=== PATIENT | female | born 1950 | race Caucasian/White ===

== ENCOUNTER → 2021-10-24 13:40 | Outpatient (BNVA) | payer MEDICARE, OTHER, SELFPAY | PROVIDERS: PCP Pediatrics; Visit Provider Psychiatry & Neurology Neurology | DX: G24.3 Spasmodic torticollis (principal); G43.709 Chronic migraine without aura, not intractable, without status migrainosus | CPT/HCPCS: 64615; 64616; 99212; J0585 ==

== ENCOUNTER → 2022-02-06 13:33 | Outpatient (BNVA) | payer MEDICARE, OTHER, SELFPAY | PROVIDERS: PCP Pediatrics; Visit Provider Psychiatry & Neurology Neurology | DX: G24.3 Spasmodic torticollis (principal); G43.709 Chronic migraine without aura, not intractable, without status migrainosus | CPT/HCPCS: 64615; 64616; 99211; J0585 ==

== ENCOUNTER → 2022-05-15 15:21 | Outpatient (BNVA) | payer MEDICARE, OTHER, SELFPAY | PROVIDERS: PCP Pediatrics; Visit Provider Psychiatry & Neurology Neurology | DX: G24.3 Spasmodic torticollis (principal); G43.709 Chronic migraine without aura, not intractable, without status migrainosus | CPT/HCPCS: 64616; 99211; J0585 ==

== ENCOUNTER → 2022-08-14 13:34 | Outpatient (BNVA) | payer MEDICARE, OTHER, SELFPAY | PROVIDERS: PCP Pediatrics; Visit Provider Psychiatry & Neurology Neurology | DX: G43.709 Chronic migraine without aura, not intractable, without status migrainosus (principal); G24.3 Spasmodic torticollis | CPT/HCPCS: 64616; 99211; J0585 ==

== ENCOUNTER → 2022-11-13 12:30 | Outpatient (BNVA) | payer MEDICARE, OTHER, SELFPAY | PROVIDERS: PCP Pediatrics; Visit Provider Psychiatry & Neurology Neurology | DX: G24.3 Spasmodic torticollis (principal); G43.709 Chronic migraine without aura, not intractable, without status migrainosus | CPT/HCPCS: 64616; 99211; J0585 ==

== ENCOUNTER 2023-02-19 12:27 | Outpatient (AMB) | payer MEDICARE, OTHER, SELFPAY ==
--- NOTE | 2023-02-19 12:32 | A.OFFVIS_ITS ---
Intake Vital Signs 02/19/23 12:33 Height 5 ft 7 in BP 102/60 Blood Pressure Location Rt brachial Position Sitting Pulse 46 L Pulse Source Pulse Oximeter Pulse Oximetry (%) 96 Oxygen Delivery Method Room Air Intake Visit Reasons: Botox B&B Intake Note: pt is here for botox Litigation Assistant Required: No Accompanied by: Spouse Allergies adhesive Allergy (Verified 02/19/23 12:33) Rash bee venom protein (honey bee) Allergy (Verified 02/19/23 12:33) Swelling contrast dye Allergy (Mild, Uncoded 08/14/22 13:41) Unknown HPI HPI Comments History of Present Illness Details 73-year-old female comes for treatment of her migraines an spasmodic torticollis. Side affects including injection site reaction neck pain headaches muscular weakness musculoskeletal stiffness bronchitis allergic reaction myalgia facial paresis hypertension muscle spasms Excedrin were discussed in detail with the patient patient agrees to the procedure. Botulinum toxin type 100 units lot number [id number] C4 expiration 11/2024 x 1 was diluted with 2 cc of normal saline 200 units lot no [id number] exp 09/30 was diluted with 4 cc, Muscles injected Bilateral splenius 50 units Bilateral levator 50 units each. cervical paraspinal 10 units each Occipitalis 15 units each Temporalis 20 units each. Total used 290 units discarded 10 units PFSH Medical History Arthritis Back pain Scoliosis Surgical History History of back surgery Social History Household Members: Spouse Alcohol intake: current Alcohol intake frequency: does not drink Patient Tobacco Use Status: Never used Tobacco Current occupational status: retired Physical Exam Vital Signs: Last Vital Signs Pulse 46 L 02/19/23 12:33 BP 102/60 02/19/23 12:33 Pulse Ox 96 02/19/23 12:33 Oxygen Delivery Method Room Air 02/19/23 12:33 Const Orientation/consciousness: patient oriented x3 Neck Other: spasmodic torticollis Restricted range of motion Neuro General: patient oriented x3, gait normal, tone normal, moves all extremities and no focal motor deficits Office Procedures Botulinum toxin Injection 26265 - Dystonia Procedure code (CPT) selection complete Office Meds onabotulinumtoxinA Performing Provider: Amy Hernandes MD Administered by: Amy Hernandes MD on 02/19/23 13:06 Dose Route Admin Location Lot Number Expiration Date NDC Office Analyst 90 unit IM [id number] 11/03/24 8729-6857-16 ALLERGAN/BOTOX onabotulinumtoxinA Performing Provider: Amy Hernandes MD Administered by: Amy Hernandes MD on 02/19/23 13:06 Dose Route Admin Location Lot Number Expiration Date [place] Office Analyst 200 unit IM [id number] 09/05/25 1663-7005-34 ALLERGAN/BOTOX Comments: see hpi Assessment & Plan Assessment & Plan (1) Spasmodic torticollis: Code(s): G24.3 - Spasmodic torticollis (2) Chronic migraine without aura: Code(s): G43.709 - Chronic migraine without aura, not intractable, without status migrainosus Plan Patient tolerated the procedure well. She will call with any side effects. Orders: Orders AMB Botulinum toxin Injection Today G24.3 - Spasmodic torticollis, G43.709 - Chronic migraine without aura, not intractable, without status migrainosus Coding Level of Care Code Est Pt Level 1 (82984) Diagnoses Spasmodic torticollis G24.3 Chronic migraine without aura G43.709 CPT Codes Botox Injection - Botox 4: 55538 - Dystonia ([id number])
[2023-02-19 12:33] VITALS: BP 102/60; PULSE 46; O2SAT 96
== END 2023-02-19 13:00 | disposition home or self-care (01) ==
PROVIDERS: Visit Provider Psychiatry & Neurology Neurology
DX: G24.3 Spasmodic torticollis (principal)
CPT/HCPCS: 64616

== ENCOUNTER → 2023-02-19 12:27 | Outpatient (BNVA) | payer MEDICARE, OTHER, SELFPAY | PROVIDERS: Visit Provider Psychiatry & Neurology Neurology | DX: G24.3 Spasmodic torticollis (principal); G43.709 Chronic migraine without aura, not intractable, without status migrainosus | CPT/HCPCS: 64616; J0585 ==

== ENCOUNTER 2023-05-27 13:32 | Outpatient (AMB) | payer MEDICARE, OTHER, SELFPAY ==
--- NOTE | 2023-05-27 13:40 | A.OFFVIS_ITS ---
Intake Vital Signs 05/27/23 13:41 Height 5 ft 7 in BP 100/64 Blood Pressure Location Rt brachial Position Sitting Respiration 16 Pulse 82 Pulse Source Pulse Oximeter Pulse Oximetry (%) 96 Oxygen Delivery Method Room Air Intake Visit Reasons: Botox B&B-lvm Intake Note: Pt presents to office for Botox injections. Allergies latex Allergy (Mild, Verified 05/27/23 13:45) Hives adhesive Allergy (Verified 05/27/23 13:45) Rash bee venom protein (honey bee) Allergy (Verified 05/27/23 13:45) Swelling contrast dye Allergy (Mild, Uncoded 05/27/23 13:45) Unknown Medication List - Last Reconciled 05/27/23 by Amy Hernandes MD fluoxetine 20 mg PO DAILY fluticasone propionate 50 mcg/actuation sprays intranasal gabapentin 600 mg PO BEDTIME gabapentin 100 mg PO DAILY galantamine 8 mg PO BID lifitegrast 5% (Xiidra) drps ophthalmic (eye) montelukast 10 mg PO DAILY multivitamin 1 tab PO DAILY omeprazole 20 mg PO DAILY onabotulinumtoxinA (Botox) IM trazodone 150 mg PO BEDTIME HPI HPI Comments History of Present Illness Details 73-year-old female comes for treatment o f her migraines and spasmodic torticollis. Side affects including injection site reaction neck pain headaches muscular weakness musculoskeletal stiffness bronchitis allergic reaction myalgia facial paresis hypertension muscle spasms Excedrin were discussed in detail with the patient patient agrees to the procedure. Botulinum toxin type 100 units lot number [id number] C4 expiration 09/2025 x 3 was diluted with 2 cc of normal saline. Muscles injected Bilateral splenius 50 units Bilateral levator 50 units each. cervical paraspinal 10 units each Occipitalis 15 units each Temporalis 20 units each. Total used 290 units discarded 10 units PFSH Medical History Back pain Scoliosis Arthritis Surgical History History of back surgery Social History Household Members: Spouse Alcohol intake: current Alcohol intake frequency: does not drink Patient Tobacco Use Status: Never used Tobacco Current occupational status: retired Physical Exam Vital Signs: Last Vital Signs Pulse 82 10/23/23 13:41 Resp 16 05/27/23 13:41 BP 100/64 05/27/23 13:41 Pulse Ox 96 05/27/23 13:41 Oxygen Delivery Method Room Air 05/27/23 13:41 Const Orientation/consciousness: patient oriented x3 Neck Other: spasmodic torticollis Restricted range of motion Neuro General: patient oriented x3, gait normal, tone normal, moves all extremities and no focal motor deficits Office Procedures Botulinum toxin Injection 45522 - Migraine 43287 - Dystonia Procedure code (CPT) selection complete Office Meds onabotulinumtoxinA 100 unit solution for injection Performing Provider: Amy Hernandes MD Performing Location: [facility] Administered by: Amy Hernandes MD on 05/28/23 11:11 Dose Route Admin Location Dispensed Lot Number Expiration Date [facility] [place] Folder 300 unit IM 300 units [id number] 09/05/25 0181-9936-31 ALLERGAN/BOTOX Comments: see hpi Assessment & Plan Assessment & Plan (1) Spasmodic torticollis: Code(s): G24.3 - Spasmodic torticollis (2) Chronic migraine without aura: Code(s): G43.709 - Chronic migraine without aura, not intractable, without status migrainosus Plan Patient tolerated the procedure well. She will call with any side effects. Orders: Orders AMB Botulinum toxin Injection 05/27/23 G24.3 - Spasmodic torticollis, G43.709 - Chronic migraine without aura, not intractable, without status migrainosus Medications: New zolmitriptan (Zomig) take 1 tab at onset of headache; if no relief, may repeat 1 tab after at least 2 hrs; max = 2 tabs/24 hrs PO Coding Level of Care Code Est Pt Level 1 (05685) Diagnoses Spasmodic torticollis G24.3 Chronic migraine without aura G43.709 CPT Codes Botox Injection - Botox 3: 66279 - Migraine ([id number]) Botox Injection - Botox 4: 44634 - Dystonia ([id number])
[2023-05-27 13:41] VITALS: BP 100/64; PULSE 82; RESP 16; O2SAT 96
== END 2023-05-27 14:29 | disposition home or self-care (01) ==
PROVIDERS: PCP Pediatrics; Visit Provider Psychiatry & Neurology Neurology
DX: G43.709 Chronic migraine without aura, not intractable, without status migrainosus (principal)
CPT/HCPCS: 64615

== ENCOUNTER → 2023-05-27 13:32 | Outpatient (BNVA) | payer MEDICARE, OTHER, SELFPAY | PROVIDERS: PCP Pediatrics; Visit Provider Psychiatry & Neurology Neurology | DX: G24.3 Spasmodic torticollis (principal); G43.709 Chronic migraine without aura, not intractable, without status migrainosus | CPT/HCPCS: 64615; 99211; J0585 ==

== ENCOUNTER 2023-09-03 13:02 | Outpatient (AMB) | payer MEDICARE, OTHER, SELFPAY ==
--- NOTE | 2023-09-03 13:07 | MHC.OFFVIS ---
Intake Vital Signs 09/03/23 13:09 Height 5 ft 7 in Weight 126 lb 6 oz BMI 19.8 BP 122/74 Blood Pressure Location Rt brachial Position Sitting Respiration 16 Pulse 71 Pulse Source Pulse Oximeter Pulse Oximetry (%) 96 Oxygen Delivery Method Room Air Intake Visit Reasons: Botox B&B - CONF Intake Note: Pt presents to the office for Botox injections. Associate Professor Of Geology Required: No Allergies latex Allergy (Mild, Verified 09/03/23 13:08) Hives adhesive Allergy (Verified 09/03/23 13:08) Rash bee venom protein (honey bee) Allergy (Verified 09/03/23 13:08) Swelling contrast dye Allergy (Mild, Uncoded 09/03/23 13:08) Unknown Medication List - Last Reconciled 09/03/23 by Amy Hernandes MD fluoxetine 20 mg PO DAILY fluticasone propionate 50 mcg/actuation sprays intranasal gabapentin 600 mg PO BEDTIME gabapentin 100 mg PO DAILY galantamine 8 mg PO BID lifitegrast 5% (Xiidra) drps ophthalmic (eye) montelukast 10 mg PO DAILY multivitamin 1 tab PO DAILY omeprazole 20 mg PO DAILY onabotulinumtoxinA (Botox) IM trazodone 150 mg PO BEDTIME zolmitriptan (Zomig) take 1 tab at onset of headache; if no relief, may repeat 1 tab after at least 2 hrs; max = 2 tabs/24 hrs PO HPI HPI Comments History of Present Illness Details 73-year-old female comes for treatment of her migraines and spasmodic torticollis. Side affects including injection site reaction neck pain headaches muscular weakness musculoskeletal stiffness bronchitis allergic reaction myalgia facial paresis hypertension muscle spasms Excedrin were discussed in detail with the patient patient agrees to the procedure. Botulinum toxin type 100 units lot number [id number] C4 expiration 12/2025 x 3 was diluted with 2 cc of normal saline. Muscles injected Bilateral splenius 50 units Bilateral levator 50 units each. cervical paraspinal 10 units each Occipitalis 15 units each Temporalis 20 units each. Total used 290 units discarded 10 units PFSH Medical History Back pain Scoliosis Arthritis Surgical History History of back surgery Social History Household Members: Spouse Alcohol intake: current Alcohol intake frequency: does not drink Patient Tobacco Use Status: Never used Tobacco Current occupational status: retired Physical Exam Vital Signs: Last Vital Signs Pulse 71 09/03/23 13:09 Resp 16 09/03/23 13:09 BP 122/74 09/03/23 13:09 Pulse Ox 96 09/03/23 13:09 Oxygen Delivery Method Room Air 09/03/23 13:09 BMI result Body Mass Index 19.8 Const Orientation/consciousness: patient oriented x3 Neck Other: spasmodic torticollis Restricted range of motion Neuro General: patient oriented x3, gait normal, tone normal, moves all extremities and no focal motor deficits Office Procedures Botulinum toxin Injection 53249 - Dystonia Procedure code (CPT) selection complete Office Meds onabotulinumtoxinA 100 unit solution for injection Performing Provider: Amy Hernandes MD Performing Location: [facility] Administered by: Amy Hernandes MD on 09/03/23 13:45 Dose Route Admin Location Dispensed Lot Number Expiration Date [facility] Envelope Machine Operator 300 unit IM 300 units [id number] 12/03/25 2923-4446-38 ALLERGAN/BOTOX Comments: see hpi Assessment & Plan Assessment & Plan (1) Spasmodic torticollis: Code(s): G24.3 - Spasmodic torticollis (2) Chronic migraine without aura: Code(s): G43.709 - Chronic migraine without aura, not intractable, without status migrainosus Plan Patient tolerated the procedure well. She will call with any side effects. Orders: Orders AMB Botulinum toxin Injection Today G24.3 - Spasmodic torticollis Coding Level of Care Code Est Pt Level 1 (21924) Diagnoses Spasmodic torticollis G24.3 Chronic migraine without aura G43.709 CPT Codes Botox Injection - Botox 4: 71483 - Dystonia ([id number])
[2023-09-03 13:09] VITALS: BP 122/74; PULSE 71; RESP 16; O2SAT 96; BMI 19.8
== END 2023-09-03 13:49 | disposition home or self-care (01) ==
PROVIDERS: PCP Pediatrics; Visit Provider Psychiatry & Neurology Neurology
DX: G24.3 Spasmodic torticollis (principal)
CPT/HCPCS: 64616

== ENCOUNTER → 2023-09-03 13:02 | Outpatient (BNVA) | payer MEDICARE, OTHER, SELFPAY | PROVIDERS: PCP Pediatrics; Visit Provider Psychiatry & Neurology Neurology | DX: G24.3 Spasmodic torticollis (principal); G43.709 Chronic migraine without aura, not intractable, without status migrainosus | CPT/HCPCS: 64616; 99211; J0585 ==

== ENCOUNTER 2023-12-09 13:43 | Outpatient (AMB) | payer MEDICARE, OTHER, SELFPAY ==
--- NOTE | 2023-12-09 13:46 | A.OFFVIS_ITS ---
Vital Signs 12/09/23 13:49 Height 5 ft 7 in Weight 126 lb BMI 19.7 BP 110/58 L Blood Pressure Location Rt brachial Position Sitting Respiration 16 Pulse 75 Pulse Source Pulse Oximeter Pulse Oximetry (%) 95 Oxygen Delivery Method Room Air Intake Visit Reasons: Botox (B&B)-CONF Intake Note: Pt presents to office for Botox injections. 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 Allergies latex Allergy (Mild, Verified 12/09/23 13:48) Hives adhesive Allergy (Verified 12/09/23 13:48) Rash bee venom protein (honey bee) Allergy (Verified 12/09/23 13:48) Swelling contrast dye Allergy (Mild, Uncoded 12/09/23 13:48) Unknown Medication List - Last Reconciled 12/09/23 by Amy Hernandes MD fluoxetine 20 mg PO DAILY fluticasone propionate 50 mcg/actuation sprays intranasal gabapentin 100 mg PO DAILY gabapentin 300 mg PO BEDTIME galantamine 8 mg PO BID lifitegrast 5% (Xiidra) drps ophthalmic (eye) montelukast 10 mg PO DAILY multivitamin 1 tab PO DAILY omeprazole 20 mg PO DAILY onabotulinumtoxinA (Botox) IM trazodone 150 mg PO BEDTIME zolmitriptan (Zomig) take 1 tab at onset of headache; if no relief, may repeat 1 tab after at least 2 hrs; max = 2 tabs/24 hrs PO HPI Comments Details: 73-year-old female comes for treatment of her migraines and spasmodic torticollis. Side affects including injection site reaction neck pain headaches muscular weakness musculoskeletal stiffness bronchitis allergic reaction myalgia facial paresis hypertension muscle spasms Excedrin were discussed in detail with the patient patient agrees to the procedure. Botulinum toxin type 100 units lot number [id number] C4 expiration 01/2026 x 3 was diluted with 2 cc of normal saline. Muscles injected Bilateral splenius 50 units Bilateral levator 50 units each. Occipitalis 15 units each Temporalis 20 units each. Total used 270 units discarded 30 units PFSH Medical History Back pain Scoliosis Arthritis Surgical History History of back surgery Social History Household Members: Spouse Alcohol intake: current Alcohol intake frequency: does not drink Patient Tobacco Use Status: Never used Tobacco Current occupational status: retired Physical Exam Vital Signs: Last Vital Signs Pulse 75 12/09/23 13:49 Resp 16 12/09/23 13:49 BP 110/58 L 12/09/23 13:49 Pulse Ox 95 12/09/23 13:49 Oxygen Delivery Method Room Air 12/09/23 13:49 BMI result Body Mass Index 19.7 Const Orientation/consciousness: patient oriented x3 Neck Other: spasmodic torticollis Restricted range of motion Neuro General: patient oriented x3, gait normal, tone normal, moves all extremities and no focal motor deficits Office Procedures Botulinum toxin Injection 15130 - Dystonia Procedure code (CPT) selection complete Office Meds onabotulinumtoxinA 100 unit solution for injection Performing Provider: Amy Hernandes MD Performing Location: [facility] [place], [place] [facility] Administered by: Amy Hernandes MD on 12/09/23 14:48 Dose Route Admin Location Dispensed Lot Number Expiration Date [facility] [place][NOTE 3] [place] 270 unit IM 300 units [id number] 01/03/26 2337-7653-30 ALLERGAN/BOTOX Comments: see hpi Assessment & Plan Assessment & Plan (1) 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 She will call with any side effects. Orders: Orders AMB Botulinum toxin Injection Today G24.3 - Spasmodic torticollis Medications: New onabotulinumtoxinA 100 units IM ONCE 1 ea 0RF spasmodic torticollis G24.3 - Spasmodic torticollis Coding Level of Care Code Est Pt Level 1 (52513) Diagnoses Spasmodic torticollis G24.3 Chronic migraine without aura G43.709 CPT Codes Botox Injection - Botox 4: 63520 - Dystonia ([id number])
[2023-12-09 13:49] VITALS: BP 110/58; PULSE 75; RESP 16; O2SAT 95; BMI 19.7
== END 2023-12-09 14:14 | disposition home or self-care (01) ==
PROVIDERS: PCP Pediatrics; Visit Provider Psychiatry & Neurology Neurology
DX: G24.3 Spasmodic torticollis (principal)
CPT/HCPCS: 64616

== ENCOUNTER → 2023-12-09 13:43 | Outpatient (BNVA) | payer MEDICARE, OTHER, SELFPAY | PROVIDERS: PCP Pediatrics; Visit Provider Psychiatry & Neurology Neurology | DX: G24.3 Spasmodic torticollis (principal) | CPT/HCPCS: 64616; 99211; J0585 ==

== ENCOUNTER 2024-03-27 12:28 | Outpatient (AMB) | payer MEDICARE, OTHER, SELFPAY ==
--- NOTE | 2024-03-27 12:31 | A.OFFVIS_ITS ---
Vital Signs 03/27/24 12:33 Height 5 ft 7 in Weight 125 lb BMI 19.6 BP 116/68 Blood Pressure Location Rt brachial Position Sitting Respiration 16 Pulse 60 Pulse Source Pulse Oximeter Pulse Oximetry (%) 98 Oxygen Delivery Method Room Air Intake Visit Reasons: BOTOX - Confirmed Intake Note: Pt presents to the office for Botox injections for migraines. 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 Allergies latex Allergy (Mild, Verified 03/27/24 12:32) Hives adhesive Allergy (Verified 03/27/24 12:32) Rash bee venom protein (honey bee) Allergy (Verified 03/27/24 12:32) Swelling contrast dye Allergy (Mild, Uncoded 03/27/24 12:32) Unknown Medication List - Last Reconciled 03/27/24 by Amy Hernandes MD fluoxetine 20 mg PO DAILY fluticasone propionate 50 mcg/actuation sprays intranasal gabapentin 100 mg PO DAILY gabapentin 300 mg PO BEDTIME galantamine 8 mg PO BID lifitegrast 5% (Xiidra) drps ophthalmic (eye) montelukast 10 mg PO DAILY multivitamin 1 tab PO DAILY omeprazole 20 mg PO DAILY onabotulinumtoxinA (Botox) IM trazodone 150 mg PO BEDTIME zolmitriptan (Zomig) take 1 tab at onset of headache; if no relief, may repeat 1 tab after at least 2 hrs; max = 2 tabs/24 hrs PO HPI Comments Details: 74-year-old female comes for treatment of her migraines and spasmodic torticollis. Side affects including injection site reaction neck pain headaches muscular weakness musculoskeletal stiffness bronchitis allergic reaction myalgia facial paresis hypertension muscle spasms Excedrin were discussed in detail with the patient patient agrees to the procedure. Botulinum toxin type 100 units lot number [id number] C4 expiration 04/2026 x 3 was diluted with 2 cc of normal saline. Muscles injected Bilateral splenius 50 units Bilateral levator 50 units each. Occipitalis 15 units each Temporalis 20 units each. Total used 270 units discarded 30 units PFSH Medical History Back pain Scoliosis Arthritis Surgical History History of back surgery Social History Household Members: Spouse Alcohol intake: current Alcohol intake frequency: does not drink Patient Tobacco Use Status: Never used Tobacco Current occupational status: retired Physical Exam Vital Signs: Last Vital Signs Pulse 60 03/27/24 12:33 Resp 16 03/27/24 12:33 BP 116/68 03/27/24 12:33 Pulse Ox 98 03/27/24 12:33 Oxygen Delivery Method Room Air 03/27/24 12:33 BMI result Body Mass Index 19.6 Const Orientation/consciousness: patient oriented x3 Neck Other: spasmodic torticollis Restricted range of motion Neuro General: patient oriented x3, gait normal, tone normal, moves all extremities and no focal motor deficits Office Procedures Botulinum toxin Injection 63975 - Dystonia Procedure code (CPT) selection complete Office Meds onabotulinumtoxinA 100 unit solution for injection Performing Provider: Amy Hernandes MD Performing Location: [facility] [place] [facility] Administered by: Amy Hernandes MD on 03/27/24 13:12 Dose Route Admin Location Dispensed Lot Number Expiration Date [facility] [place] [employer] Supervisor 270 unit IM 300 units [id number] 04/05/26 6559-5130-76 ALLERGAN/BOTOX Comments: see HPI Assessment & Plan Assessment & Plan (1) 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 She will call with any side effects. Orders: Orders AMB Botulinum toxin Injection Today G24.3 - Spasmodic torticollis Medications: New onabotulinumtoxinA 100 units IM ONCE 3 ea 0RF spasmodic torticollis G24.3 - Spasmodic torticollis Coding Level of Care Code Est Pt Level 1 (05316) Diagnoses Spasmodic torticollis G24.3 Chronic migraine without aura G43.709 CPT Codes Botox Injection - Botox 4: 18125 - Dystonia ([id number])
[2024-03-27 12:33] VITALS: BP 116/68; PULSE 60; RESP 16; O2SAT 98; BMI 19.6
== END 2024-03-27 13:05 | disposition home or self-care (01) ==
PROVIDERS: PCP Pediatrics; Visit Provider Psychiatry & Neurology Neurology
DX: G24.3 Spasmodic torticollis (principal)
CPT/HCPCS: 64616

== ENCOUNTER → 2024-03-27 12:28 | Outpatient (BNVA) | payer MEDICARE, OTHER, SELFPAY | PROVIDERS: PCP Pediatrics; Visit Provider Psychiatry & Neurology Neurology | DX: G24.3 Spasmodic torticollis (principal); G43.709 Chronic migraine without aura, not intractable, without status migrainosus | CPT/HCPCS: 64616; 99211; J0585 ==

== ENCOUNTER 2024-07-01 12:59 | Outpatient (AMB) | payer MEDICARE, OTHER, SELFPAY ==
--- NOTE | 2024-07-01 13:02 | MHC.OFFVIS ---
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 Side affects including injection site reaction neck pain headaches muscular weakness musculoskeletal stiffness bronchitis allergic reaction myalgia facial paresis hypertension muscle spasms Excedrin were discussed in detail with the patient patient agrees to the procedure. Botulinum toxin type 100 units lot number [id number] 07/2026 x 3 was diluted with 2 cc of normal saline. Muscles injected Bilateral splenius 50 units Bilateral levator 50 units each. Occipitalis 15 units each Temporalis 20 units each. Total used 270 units discarded 30 units PFSH Medical History Occipital neuralgia of left side Back pain Scoliosis Arthritis Surgical History History of back surgery Social History Household Members: Spouse Alcohol intake: current Alcohol intake frequency: does not drink Patient Tobacco Use Status: Never used Tobacco Current occupational status: retired Physical Exam Vital Signs: Last Vital Signs Pulse 68 07/01/24 13:03 BP 120/64 07/01/24 13:03 Pulse Ox 98 07/01/24 13:03 Oxygen Delivery Method Room Air 07/01/24 13:03 BMI result Body Mass Index 19.6 Const Orientation/consciousness: patient oriented x3 Neck Other: spasmodic torticollis Restricted range of motion Neuro General: patient oriented x3, gait normal, tone normal, moves all extremities and no focal motor deficits Office Procedures Botulinum toxin Injection 97719 - Dystonia Procedure code (CPT) selection complete Office Meds onabotulinumtoxinA 100 unit solution for injection Performing Provider: Amy Hernandes MD Performing Location: [facility] [place] [facility] Administered by: Amy Hernandes MD on 07/01/24 13:53 Dose Route Admin Location Dispensed Lot Number Expiration Date [employer] 270 unit IM 300 units 0380-4992-00 ALLERGAN/BOTOX Comments: see hpi Assessment & Plan Assessment & Plan (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 She will call with any side effects. Orders: Orders AMB Botulinum toxin Injection Today G24.3 - Spasmodic torticollis Referrals Pain Management Referral M54.81 - Occipital neuralgia Medications: New onabotulinumtoxinA 100 units IM ONCE 3 ea 0RF spasmodic torticollis G24.3 - Spasmodic torticollis Coding Level of Care Code Est Pt Level 1 (62804) Diagnoses Spasmodic torticollis G24.3 Chronic migraine without aura without status migrainosus, not intractable G43.709 Status migrainosus presence: without status migrainosus Intractability: not intractable CPT Codes Botox Injection - Botox 4: 24825 - Dystonia ([id number])
[2024-07-01 13:03] VITALS: BP 120/64; PULSE 68; O2SAT 98; BMI 19.6
== END 2024-07-01 13:52 | disposition home or self-care (01) ==
PROVIDERS: PCP Pediatrics; Visit Provider Psychiatry & Neurology Neurology
DX: G43.709 Chronic migraine without aura, not intractable, without status migrainosus (principal)
CPT/HCPCS: 64615

== ENCOUNTER → 2024-07-01 12:59 | Outpatient (BNVA) | payer MEDICARE, OTHER, SELFPAY | PROVIDERS: PCP Pediatrics; Visit Provider Psychiatry & Neurology Neurology | DX: G24.3 Spasmodic torticollis (principal); G43.709 Chronic migraine without aura, not intractable, without status migrainosus | CPT/HCPCS: 64615; 99211; J0585 ==

== ENCOUNTER 2024-07-30 14:35 | Outpatient (AMB) | payer MEDICARE, OTHER, SELFPAY ==
--- OUTSIDE RECORDS SUMMARY | 2024-07-30 14:38 | XMS_ITS | Patient Health Record ---
[facility] Address [address] [place] [address] Care Team Providers Care Rn Float Name Role Phone Xavier Segura MD Primary Care Provider Unavail able Black, Mini Unavailable [phone] Allergies Allergen (clinical drug ingredient) Drug/Non Drug Allergy documented on EMR Reaction Allergy Type Onset Date Status fluconazole Diflucan Unknown Drug Allergy Activ e Iodine Unknown Drug Allergy Active Adhesive rash Allergy Active Iodine itchyness Drug Allergy Active Reason For Referral No Information Medications Medication SIG (Take, Route, Frequency, Duration) Notes Start Date End Date Status Montelukast Sodium A ctive Zomig 5 MG 1 tablet as needed one time Orally Once a day for 1 day(s) Active Omeprazole 20 MG 1 tablet Orally Once a day for 30 day(s) Active Carisoprodol 350 MG 1 tablet as needed Orally Four times a day Active Claritin 10 MG 1 tablet Orally Once a day for 30 day(s) Not-Taking Custom Orthotics as directed 12/19/2020 Active Elmiron 100 MG 1 capsule on an empty stomach Orally Three times a day for 30 day(s) Not-Taking CeleBREX 200 MG 1 capsule with food Orally Once a day for 30 day(s) Active Nefazodone HCl 100 MG 2 tablets Orally Twice a day for 30 day(s) Not-Taking FLUoxetine HCl 20 MG 1 capsule Orally Once a day for 30 day(s) Active Eye Drops Active Melatonin 3 MG 1 tablet at bedtime as needed with food Orally Once a day for 30 day(s) Active Gabapentin 600 MG 1 tablet Orally Once a day for 30 day(s) 100am 600pm Active Immunizations Vaccine Route Administration Date Status [facility] COVID-19 Pfizer BioNTech Vaccine Unknown 07/05/2021 Administered First Dose: 10/14/2020 Second Dose: 11/04/2020 Social History Tobacco Use: Social History Observation Description Date Details (start date - stop date) Never Smoker NA - NA Tobacco Use/Smoking Question Answer Notes Are you a: nonsmoker Additional Findings: Tobacco Non-User Aggressive non-smoker Alcohol Screen Question Answer Notes Did you have a drink containing alcohol in the p ast year? No Points 0 Interpretation Negative Tobacco use other than smoking: Question Answer Notes Are you an other tobacco user? No Problems Problem Type SNOMED Code ICD Code Onset Dates Problem Status W/U Status Risk Notes Problem Localized, primary osteoarthritis of the ankle and/or foot (684298045) Primary osteoarthritis, right ankle and foot (M19.071) Active confirmed Problem Localized, primary osteoarthritis of the ankle and/or foot (001367313) Primary osteoarthritis, left ankle and foot (M19.072) Active confirmed Problem Acquired hammer toe of right foot (8707885183628717 ) Other hammer toe(s) (acquired), right foot (M20.41) Active confirmed Problem Acquired hammer toe of left foot (4347656191004159 ) Other hammer toe(s) (acquired), left foot (M20.42) Active confirmed Problem Acquired deformity of right foot (4500572252862612 0) 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) Active confirmed Problem Acquired deformity of left foot (2532202457881867 4) PlantarFlexion of metatarsal of left foot (M21.6X2) Active confirmed Plan Of Treatment Pending Test Test Name Order Date - Ganglion Cyst Injection/Aspiratio n 04/30/2019 Insurance Providers Payer Name Payer Address Payer Phone Subscriber Number Group Number Insured Name Patient Relationship to Insured Coverage Start Date Coverage End Date Medicare [employer] [address] [place] [address] [phone] [id number] Marianne Monteiro Self - patient is the insured [facility] ([facility] [address] [place] [address] [phone] [id number] Dzierzan owski, Marianne Self - patient is the insured Medical (General) History Medical History History ICD Code Arthritis Back,Hip,and Knee pain Broken bones Fibromyalgia Headaches/Migraines Reflux ( GERD) Sciatica Chicken pox Transfusions Surgical History Surgery Date(Month/Year) Eyes x4 [phone] Tonsils 1974 Disectomy 1999 Ulna reconstruction- rejected screws 198 Hysterectomy 1986 Lynx sling 2005 back surgery 02/2021
--- OUTSIDE RECORDS SUMMARY | 2024-07-30 14:38 | XMS_ITS ---
[facility] Address [address] [place] [address] Care Team Providers Care Photographs Curator Name Role Phone Xavier Segura MD Primary Care Provider Unavail able Black, Mini Unavailable [phone] Allergies Allergen (clinical drug ingredient) Drug/Non Drug Allergy documented on EMR Reaction Allergy Type Onset Date Status fluconazole Diflucan Unknown Drug Allergy Activ e Iodine Unknown Drug Allergy Active Adhesive rash Allergy Active Iodine itchyness Drug Allergy Active REASON FOR VISIT PCP - 04/2023, Foot pain Medications Medication SIG (Take, Route, Frequency, Duration) Notes Start Date End Date Status Elmiron 100 MG 1 capsule on an empty stomach Orally Three times a day for 30 day(s) Not-Taking FLUoxetine HCl 20 MG 1 capsule Orally Once a day for 30 day(s) Active Eye Drops Active Melatonin 3 MG 1 tablet at bedtime as needed with food Orally Once a day for 30 day(s) Active Gabapentin 600 MG 1 tablet Orally Once a day for 30 day(s) 100am 600pm Active Carisoprodol 350 MG 1 tablet as needed Orally Four times a day Active Claritin 10 MG 1 tablet Orally Once a day for 30 day(s) Not-Taking Custom Orthotics as directed 12/19/2020 Active CeleBREX 200 MG 1 capsule with food Orally Once a day for 30 day(s) Active Nefazodone HCl 100 MG 2 tablets Orally Twice a day for 30 day(s) Not-Taking Montelukast Sodium A ctive Zomig 5 MG 1 tablet as needed one time Orally Once a day for 1 day(s) Active Omeprazole 20 MG 1 tablet Orally Once a day for 30 day(s) Active Social History Tobacco Use: Social History Observation [...] Are you an other tobacco user? No Vital Signs Height 5ft 7in in 06/13/2023 Weight 120 lbs 06/13/2023 BMI 18.79 kg/m2 06/13/2023 Blood pressure systolic 110 mm Hg 06/13/20 23 Blood pressure diastolic 70 mm Hg 023 Encounters Encounter Location Date Provider Diagnosis [facility] [address] [place] [address] 06/13/2023 Mini Black Plantar fascial fibromatosis M72.2 ; Other myositis, left ankle and foot M60.872 ; Other myositis, right ankle and foot M60.871 ; Other hammer toe(s) (acquired), left foot M20.42 ; Other hammer toe(s) (acquired), right foot M20.41 ; Metatarsalgia, left foot M77.42 ; Metatarsalgia, right foot M77.41 ; PlantarFlexion of metatarsal of left foot M21.6X2 ; PlantarFlexion of metatarsal of right foot M21.6X1 ; Primary osteoarthritis, left ankle and foot M19.072 ; Primary osteoarthritis, right ankle and foot M19.071 ; Ganglion, left ankle and foot M67.472 and Hallux limitus of left foot M20.5X2 Assessments Encounter Date Diagnosis (ICD Code) Assessment Notes Treatment Notes Treatment Clinical Notes Section Notes 06/13/2023 Plantar fascial fibromatosis (ICD-10 - M72.2) 06/13/2023 Other myositis, left ankle and foot (ICD-10 - M60.872) 06/13/2023 Other myositis, right ankle and foot (ICD-10 - M60.871) 06/13/2023 Other hammer toe(s) (acquired), left foot (ICD-10 - M20.42) 06/13/2023 Other hammer toe(s) (acquired), right foot (ICD-10 - M20.41) 06/13/2023 Metatarsalgia, left foot (ICD-10 - M77.42) 06/13/2023 Metatarsalgia, right foot (ICD-10 - M77.41) 06/13/2023 PlantarFlexion of metatarsal of left foot (ICD-10 - M21.6X2) 06/13/2023 PlantarFlexion of metatarsal of right foot (ICD-10 - M21.6X1) 06/13/2023 Primary osteoarthritis, left ankle and foot (ICD-10 - M19.072) 06/13/2023 Primary osteoarthritis, right ankle and foot (ICD-10 - M19.071) 06/13/2023 Ganglion, left ankle and foot (ICD-10 - M67.472) 06/13/2023 Hallux limitus of left foot (ICD-10 - M20.5X2) Plan Of Treatment Next Appt Details Follow Up: prn, Reason: Progress Notes * Marianne GRANTDOB:02/1950 (73 yo F)Acc No.[id number]:06/13/2023 Progress Note Patient:?Lisseth Grant Provider:?Mini Mejia DPM :1950???Age:73 Y???Sex:Female D ate:06/13/2023 Address:[address] Pcp:Xavier Segura MD Subjective: * Chief Complaints: * ???PCP - 04/2023Foot pain * HPI: ???Foot Pain:?Nature:?aching, tenderness.?Location:?Forefoot, B/L Bottom B/L.?Duration:?several years.?Onset:?gradual, denies trauma.?Course:?recurrent.?Aggrevated:?standing, walking, especially barefoot.?Treatments:?innersoles, stretching.?Severity/Quality:?moderate.?Misc:?Padding on Previous orthotics have worn away.? * ROS:?General/Constitutional:?Nausea?denies, denies.?Vomiting?denies, denies.?Hunger Thirst?denies, denies.?Loss appetite?denies, denies.?Chills?denies, denies.?Fatigue?denies, denies.?Fever?denies, denies.?Night Sweats denies, denies.?Unexplained weight loss?denies, denies.?Unexplained weight gain?denies, denies.?HEENTM:?Dentures?denies, denies.?Dizziness?denies, denies.?Glasses/contacts?admits, admits.?Retinopathy?denies, denies.?Blurred/double vision?denies, denies.?TMJ?denies, denies.?Discharge/drainage?denies, denies.?Implants?denies, denies.?Sore throat?denies, denies.?Dental implants?denies, denies.?Hard of hearing ?denies, denies.?Difficulty chewing/swallowing/speaking?denies, denies.?Nose bleeds?denies, denies.?Sore mouth?denies, denies.?Respiratory:?On Oxygen?denies, denies.?Pneumonia/pleurisy?denies, denies.?Bronchitis?denies, denies.?Emphysema?denies, denies.?Coughing?denies, denies.?Cough blood?denies, denies.?Shortness of breath?denies, denies.?Wheezing?denies, denies.?Cardiovascular:?Pacemaker?denies, denies.?MVP?denies, denies.?WPW?denies, denies.?CHF?denies, denies.?Heart attack?denies, denies.?Septal defect?denies, denies.?Rapid beat?denies, denies.?Chest pain ?denies, denies.?Atrial Fib.?denies, denies.?Murmur/Palpitations?denies, denies.?Gastrointestinal:?Hemorrhoids?denies, denies.?Stomach/Abdominal pain?denies, denies.?Dark blood stool?denies, denies.?Irritable bowel ?denies, denies.?Constipation?denies, denies.?Diarrhea?denies, denies.?Hematology:?Swelling?denies, denies.?Clots?denies, denies.?Varicose Veins?denies, denies.?Bruising?denies, denies.?Bleeding problem?denies, denies.?Genitourinary:?Blood urine?denies, denies.?Frequent/Painfu/urination/bladder control?denies, denies.?Kidney stones?denies, denies.?Infection (UTI)?denies, denies.?Nephropathy?denies, denies.?sex trans dis (STD)?denies, denies.?Prostate?denies, denies.?Musculoskeletal:?Hammertoes?denies, denies.?Bunions?denies, denies.?Back Pain?denies, denies.?Muscle Cramps/ Resting?denies, denies.?Muscle cramps / walking?denies, denies.?Generalized aches and pains?denies, denies.?Weakness?denies, denies.?Integ.:?[place]?denies, denies.?Scars?denies, denies.?Corns/calluses?denies, denies.?Ingrown nails?denies, denies.?Painful nails?denies, denies.?Open Sores?denies, denies.?Rashes?denies, denies.?Neurologic:?Difficulty sleeping?denies, denies.?Brain disorder?denies, denies.?Numbness?denies, denies.?Balance trouble?denies, denies.?Confusion?denies, denies.?Fainting/blackouts?denies, denies.?Tingling?denies, denies.?Tremors?denies, denies.? * Medical History:? * Surgical History:?Eyes x4 19 54-1995Tonsils 1974Disectomy 2000Ulna reconstruction- rejected screws 1988-1999Hysterectomy 1986Lynx sling 2005back surgery 02/2021 * Hospitalization/Major Diagno stic Procedure:?Denies Past Hospitalization * Family History:?Mother: dece ased, Cancer, kidney/liver disease, diagnosed with Family history of arthritis, Diabetic - NIDDM, Unspecified essential hypertension.?Father: .? * Social History:?Tobacco Use:?Tobacco Use/Smoking?Are you a:?nonsmoker ?Additional Findings: Tobacco Non-User?Aggressive non-smoker ?Tobacco use other than smoking?Are you an other tobacco user??No ???Drugs/Alcohol:?Drugs?Have you used drugs other than those for medical reasons in the past 12 months??No ?Alcohol Screen?Did you have a drink containing alcohol in the past year??No ?Points?0 ?Interpretation?Negative ???Miscellaneous:?Caffeine: yes, frequency:, 3-5 cups per day. ?Children: yes, 1. ?Exercise: yes, walking, Yoga Stretches 2x a day. ?Marital status: . 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 * Medications:?TakingCarisopro dol 350 MG Tablet 1 tablet as needed Orally Four times a dayCeleBREX 200 MG Capsule 1 capsule with food Orally Once a dayEye Drops FLUoxetine HCl 20 MG Capsule 1 capsule Orally Once a dayGabapentin 600 MG Tablet 1 tablet Orally Once a day, Notes: 100am 600pmMelatonin 3 MG Tablet 1 tablet at bedtime as needed with food Orally Once a dayMontelukast Sodium Omeprazole 20 MG Tablet Delayed Release 1 tablet Orally Once a dayZomig 5 MG Tablet 1 tablet as needed one time Orally Once a dayCustom Orthotics as directed Taking Carisoprodol 350 MG Tablet 1 tablet as needed Orally Four times a dayTaking CeleBREX 200 MG Capsule 1 capsule with food Orally Once a dayTaking Eye Drops Taking FLUoxetine HCl 20 MG Capsule 1 capsule Orally Once a dayTaking Gabapentin 600 MG Tablet 1 tablet Orally Once a day, Notes: 100am 600pmTaking Melatonin 3 MG Tablet 1 tablet at bedtime as needed with food Orally Once a dayTaking Montelukast Sodium Taking Omeprazole 20 MG Tablet Delayed Release 1 tablet Orally Once a dayTaking Zomig 5 MG Tablet 1 tablet as needed one time Orally Once a dayTaking Custom Orthotics as directed Not-Taking/PRNElmiron 100 MG Capsule 1 capsule on an empty stomach Orally Three times a dayClaritin 10 MG Tablet 1 tablet Orally Once a dayNefazodone HCl 100 MG Tablet 2 tablets Orally Twice a dayMedication List reviewed and reconciled with the patientNot-Taking/PRN Elmiron 100 MG Capsule 1 capsule on an empty stomach Orally Three times a dayNot-Taking/PRN Claritin 10 MG Tablet 1 tablet Orally Once a dayNot-Taking/PRN Nefazodone HCl 100 MG Tablet 2 tablets Orally Twice a dayMedication List reviewed and reconciled with the patient * Allergies:?IodineAdhesive: r ashDiflucanIodine: itchynessyes[Allergies Verified] Objective: * Vitals:?Ht: 5ft 7in, Wt:120, BMI:18.79, Shoe size: 10.5N, BP:110/70 mm Hg, Ht- cm: 170.18 cm, Wt-k.43 kg. * Examination: ???General Examination: ?GENERAL APPEARANCE:?good attention to hygiene, no acute distress, well developed, well nourished.?Vascular: ?DP PULSES:?09/08, B/L.?PT PULSES:?2/4, B/L.?Neurological: ?SENSORY:?Neurological exam reveals intact sensorium, pain sensation normal, vibration sensation intact, pinprick sensation is normal in the lower extremities, Pt denies, anesthesia, burning, paresthesia, tingling, B/L.?Orthopedic: ?MUSCLE STRENGTH:?5/5 all groups in a symmetrical fashion , B/L.?GAIT ABNORMALITY:?Supinated, adducted.?FOOT MORPHOLOGY:?normal, B/L.?BUNION:? Dorso-Medially prominent 1st MPJ, Limited 1st MPJ Dorsal ROM, Pain assoc with 1st MPJ ROM , Crepitus with ROM present left.?TAILOR'S BUNION:?Prominent 5th MTH/MPJ, B/L.?DIGITAL DEFORMITIES:?Digital contracture, PIPJ, 2-5 B/L, incompl-reducable to push-up test, no over, nor underlapping, Adducto-varus deformity noted, T3, T4, T8, T9.?FOOTWEAR:?worn, OT were inspected and noted to be in good ?condition however padding added thin and displaced.?Dermatologic: ?SKIN FINDINGS:?Skin exam reveals normal texture, elasticity, and tugor. There are no masses. The interspaces are clear, Skin shows sign(s) of cyst dorsal 3rd digit left.?Heel Pain: ?INSPECTION REVEALS:?mild Pain on Palpation to Plantar Fascia med. and central bands, intrinsic musc., infracalcaneal bursa, and med calc tubercle, B/L, No pain: posterior/superior heel, achilles bursa/tendon, sinus tarsi, peroneals, or with lateral heel compression; no limited STJ ROM, calor, or eccymosis.? Assessment: * Assessment: 1.?Plantar fascial fibromato sis - M72.2?2.?Other myositis, left ankle and foot - M60.872?3.?Other myositis, right ankle and foot - M60.871?4.?Other hammer toe(s) (acquired), left foot - M20.42?5.?Other hammer toe(s) (acquired), right foot - M20.41?6.?Metatarsalgia, left foot - M77.42?7.?Metatarsalgia, right foot - M77.41?8.?PlantarFlexion of metatarsal of left foot - M21.6X2?9.?PlantarFlexion of metatarsal of right foot - M21.6X1?10.?Primary osteoarthritis, left ankle and foot - M19.072?11.?Primary osteoarthritis, right ankle and foot - M19.071?12.?Ganglion, left ankle and foot - M67.472?13.?Hallux limitus of left foot - M20.5X2 (Primary)? Plan: * Treatment: * Procedure Codes:? * Preventive Medicine:? ??Counseling:?Discussion:?-13: Office or other outpatient visit for the evaluation and management of an established patient, which required a medically appropriate history and/or examination and LOW level of DECISION MAKING for: 1 STABLE ACUTE UNCOMPLICATED PROBLEM, 2 OR MORE MINOR PROBLEMS, OR 1 STABLE CHRONIC PROBLEM, THAT POSE(S) A LOW RISK FOR MORBIDITY/MORTALITY. The visit on the day of the encounter encompassed interpreting the data and educating the patient as to the nature of their condition, treatment options available according to their individual PMH, meds, allergies, and overall health/living conditions, as well as any potential risks or complications that may occur from a failure to adhere to, and participate in, the recommended course of therapy. The discussion included a complete verbal, and/or written explanation of the examination results, any x-rays taken, the proposed diagnosis, and outline of the treatment plan. A schedule for future care needs was also explained. The patient verbalized an understanding of the instructions at this time and agreed to be an active participant in their treatment. If the patient should think of any questions or concerns after the visit, I have encouraged the patient to call the office.?Padding:?Added padding to patients inner soles to off load the area in pain, The patient and I reviewed the types of shoes they should be wearing. My recommendation included obtaining a well-fitted shoe with a good supportive, non-foldable nor twistable sole, plenty of toe/room for the forefoot, and proper arch support. Based on today's examination, I recommended the patient look for new shoes, by having their feet professionally measured. We discussed that generally the best time of the day for a shoe fitting is the afternoon. Different shoes types and brands to best match the patient's occupation and vocation were discussed. Specific brand selection will be up to the patient, their individual foot condition/deformities, and fit. The patient and I reviewed the standard new shoe break in period by wearing them for a few hours a day while checking for redness or sores as wear time is increased. The patient verbally confirmed to understanding the information discussed.? * Follow Up:?prn * Images: * Sign off status: Completed true * Provider:?Mini Mejia DPM Date:?2022 Generated for Angie oswald/Jessy/Erinsmjose on:?07/30/2024 02:37 PM EST History and Physical Notes * HPI (History of Present Illness) Category Sub-Category Detail Notes Category Not es Foot Pain Nature: aching, tenderness Location: Forefoot, B/L Bottom B/L Duration: several years Onset: gradual, denies katherine martinez Course: recurrent Aggravated: standing, walking, e specially barefoot Treatments: innersoles, stretchi margret Severity/Quality: moderate Misc: Padding on Previous orthotics have worn away Examination Category Sub-Category Detail Notes Category Not es Heel Pain INSPECTION REVEALS: mild Pain on Palpation to Plantar Fascia med. and central bands, intrinsic musc., infracalcaneal bursa, and med calc tubercle, B/L, No pain: posterior/superior heel, achilles bursa/tendon, sinus tarsi, peroneals, or with lateral heel compression; no limited STJ ROM, calor, or eccymosis Neurological SENSORY: Neurological exa m reveals intact sensorium, pain sensation normal, vibration sensation intact, pinprick sensation is normal in the lower extremities, Pt denies, anesthesia, burning, paresthesia, tingling, B/L Dermatologic SKIN FINDINGS: Skin exam reveal s normal texture, elasticity, and tugor. There are no masses. The interspaces are clear, Skin shows sign(s) of cyst dorsal 3rd digit left Orthopedic GAIT ABNORMALITY: Supinated, adducted FOOT MORPHOLOGY: normal, B/L BUNION: Dorso-Medially promi nent 1st MPJ, Limited 1st MPJ Dorsal ROM, Pain assoc with 1st MPJ ROM , Crepitus with ROM present left FOOTWEAR: worn, OT were inspec sameer and noted to be in good condition however padding added thin and displaced DIGITAL DEFORMITIES: Digital contracture , PIPJ, 2-5 B/L, incompl-reducable to push-up test, no over, nor underlapping, Adducto-varus deformity noted , T3, T4, T8, T9 TAILOR'S BUNION: Prominent 5th MTH/MP J, B/L MUSCLE STRENGTH: 5/5 all groups in a symmetrical fashion , B/L General Examination GENERAL APPEARANCE: good att ention to hygiene, no acute distress, well developed, well nourished Vascular DP PULSES (B): 2/4, B/L PT PULSES (B): 2/4, B/L
[2024-07-30 14:47] VITALS: BP 119/56; PULSE 87; O2SAT 94
--- NOTE | 2024-07-30 14:47 | MHC.OFFVIS ---
Vital Signs 07/30/24 14:47 Height 5 ft 7 in Weight 128 lb BMI 20.0 BP 119/56 L Blood Pressure Location Lt brachial Position Sitting Pulse 87 Pulse Source Pulse Oximeter Pulse Oximetry (%) 94 Oxygen Delivery Method Room Air Intake Visit Reasons: Occipital neuralgia/carolin from 07/21 Allergies latex Allergy (Mild, Verified 07/30/24 14:48) Hives adhesive Allergy (Verified 07/30/24 14:48) Rash bee venom protein (honey bee) Allergy (Verified 07/30/24 14:48) Swelling contrast dye Allergy (Mild, Uncoded 07/30/24 14:48) Unknown Medication List - Last Reconciled 07/30/24 by Peace Joshua, STAFF DEVELOPMENT MANAGER fluoxetine 20 mg PO DAILY fluticasone propionate 50 mcg/actuation sprays intranasal gabapentin 100 mg PO DAILY gabapentin 300 mg PO BEDTIME galantamine 8 mg PO BID lifitegrast 5% (Xiidra) drps ophthalmic (eye) montelukast 10 mg PO DAILY multivitamin 1 tab PO DAILY omeprazole 20 mg PO DAILY onabotulinumtoxinA (Botox) IM trazodone 150 mg PO BEDTIME zolmitriptan (Zomig) take 1 tab at onset of headache; if no relief, may repeat 1 tab after at least 2 hrs; max = 2 tabs/24 hrs PO HPI Comments Details: Marianne is a very pleasant 74-year-old female who presents the office today, accompanied by her , for evaluation management of her chronic neck pain Patient endorses left neck pain/tightness for greater than 10 years Over last 9 months has noticed left neck pain that goes up side of her neck across the top of her head She has been diagnosed with torticollis and migraines Currently receiving Botox from Neurology with short-term improvement Previously attempted physical therapy with no improvement. She continues with physician guided home exercise program Undergoes routine manipulation by chiropractor with short-term improvement Monthly massages with short-term improvement Proximally 8 years ago she underwent multiple rounds of facet injections and cervical radiofrequency ablation. As this was many years ago they are unable to detail exactly the results of these injections. They can not remember how beneficial they were or if they were beneficial at all. Denies radiation of the pain down either upper extremity Denies weakness, numbness, burning, tingling of either upper extremity Most recent MRI was approximately 4 years ago, states she was then evaluated by Neurosurgery who informed her there was no options for surgical intervention. Currently taking celecoxib 200 mg with no improvement. She has also tried [id number] medications and prescription medications without improvement Pain today is rated as a 9/10, constant worse in the afternoon and at night. Pain is exacerbated by movements and palpation In terms of muscle damage condition is described as pulsing, throbbing, pounding, pinching, crushing, stabbing, tight, piercing, tiring Pain is negatively impacting patient's enjoyment of life, general activity, sleep, normal functioning, ability to care for self, ability to perform activities of daily living Denies implantable devices, pacemaker or defibrillator Denies current use of anticoagulants Denies current use of nicotine, tobacco, alcohol or illicit substances PFSH Medical History (Updated 07/30/24 @ 15:39 by Niyah Lara APRN, [employer]) Occipital neuralgia of left side Back pain Scoliosis Arthritis Surgical History (Updated 07/30/24 @ 16:31 by Niyah Lara APRN, O[facility]) H/O left wrist surgery H/O: hysterectomy History of tonsillectomy H/O eye surgery History of back surgery Social History Household Members: Spouse Alcohol intake: current Alcohol intake frequency: does not drink Patient Tobacco Use Status: Never used Tobacco Current occupational status: retired Review of Systems Const All systems reviewed & are unremarkable except as noted in HPI and below Physical Exam Vital Signs: Last Vital Signs Pulse 87 07/30/24 14:47 BP 119/56 L 07/30/24 14:47 Pulse Ox 94 07/30/24 14:47 Oxygen Delivery Method Room Air 07/30/24 14:47 BMI result Body Mass Index 20.0 General: awake, alert, oriented. Answers questions appropriately. Fully engaged in examination. Skin: warm, dry, intact HEENT: Normocephalic. Hearing intact. Cardiac: External chest normal in appearance. Respiratory: No cough, audible wheezing or stridor. Abdomen: without gross distension. MS: No obvious swelling or deformities. Cervical Spine: Tender to palpation over left upper and middle trapezius with palpable trigger points and tight bands. No tenderness to palpation over occiput. decreased cervical ROM Spurling compression test positive BUE strength 5/5 Neurological: Oriented to person, place, time and situation. Thought process intact. No gait abnormalities appreciated. Psychiatric: Appropriate mood and affect. Good judgment and insight Assessment & Plan Assessment & Plan (1) Cervical spondylolysis: Code(s): M43.02 - Spondylolysis, cervical region Category: Medical (2) Occipital neuralgia of left side: Code(s): M54.81 - Occipital neuralgia Category: Medical (3) Spasmodic torticollis: Code(s): G24.3 - Spasmodic torticollis Category: Medical (4) Chronic migraine without aura: Code(s): G43.709 - Chronic migraine without aura, not intractable, without status migrainosus Category: Medical Qualifiers: Status migrainosus presence: without status migrainosus Intractability: not intractable Qualified Code(s): G43.709 - Chronic migraine without aura, not intractable, without status migrainosus Plan X-ray ordered for evaluation MRI cervical spine without contrast ordered for evaluation Patient has exhausted conservative therapy including PT, physician guided home exercise program, chiropractor, massage, injections, Botox, NSAIDs, [id number] medications, prescription medications all without improvement of her symptoms Will plan for an office trigger point injections with Dr. Nevarez Discussed options for treatment including diagnostic nerve blocks, sprint PNS trial, diagnostic MBB's, RFA, and more permanent neuromodulation/SCS. Will discuss further after review of imaging. All questions and concerns were answered, patient agrees with plan. Follow up after MRI, sooner if needed Orders: Orders XR cervical spine w flex/ext Today M43.02 - Spondylolysis, cervical region MR cervical spine wo con Today M54.2 - Cervicalgia Coding Level of Care Code New Pt Level 4 (21118) Complex EM visit Add On G2211 Diagnoses Cervical spondylolysis M43.02 Occipital neuralgia of left side M54.81 Spasmodic torticollis G24.3 Chronic migraine without aura without status migrainosus, not intractable G43.709 Status migrainosus presence: without status migrainosus Intractability: not intractable
== END 2024-07-30 15:35 | disposition home or self-care (01) ==
PROVIDERS: PCP Pediatrics; Visit Provider Registered Nurse Emergency
DX: M43.02 Spondylolysis, cervical region (principal); M54.81 Occipital neuralgia; G24.3 Spasmodic torticollis; G43.709 Chronic migraine without aura, not intractable, without status migrainosus
CPT/HCPCS: 99204; G2211

== ENCOUNTER → 2024-07-30 14:35 | Outpatient (BNVA) | payer MEDICARE, OTHER, SELFPAY | PROVIDERS: PCP Pediatrics; Visit Provider Registered Nurse Emergency | DX: M43.02 Spondylolysis, cervical region (principal); M54.81 Occipital neuralgia; G24.3 Spasmodic torticollis; G43.709 Chronic migraine without aura, not intractable, without status migrainosus | CPT/HCPCS: 99202 ==

== ENCOUNTER 2024-08-06 14:46 | Outpatient (REF) | payer MEDICARE, OTHER, SELFPAY ==
--- NOTE | ~2024-08-06 | XR_ITS ---
CLINICAL HISTORY: M43.02 - Spondylolysis, cervical region 7 views cervical spine Comparison: None Findings: Normal vertebral body alignment maintained with flexion and extension positioning. No acute fractures or dislocation. Multiple level degenerative disc and facet change. No prevertebral soft tissue swelling. IMPRESSION: No acute findings. This document has been electronically signed by: Carlos Casper MD on 08/07/2024 18:53:55
--- OUTSIDE RECORDS SUMMARY | 2024-08-06 16:22 | XMS_ITS | Patient Health Record ---
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 Name Role Phone Xavier Segura MD Primary Care Provider Unavail able Black, Mini Unavailable [phone] Allergies Allergen (clinical drug ingredient) Drug/Non Drug [...] Immunizations Vaccine Route Administration Date Status Comme [facility] COVID-19 Pfizer BioNTech Vaccine Unknown 07/05/2021 Administered [...] primary osteoarthritis of the ankle and/or foot (495390206) Primary osteoarthritis, right ankle and foot (M19.071) Active confirmed Problem Localized, primary osteoarthritis of the ankle and/or foot (525046866) Primary osteoarthritis, left ankle and foot (M19.072) Active confirmed Problem Acquired hammer toe of right foot (9133563789720633 ) Other hammer toe(s) (acquired), right foot (M20.41) Active confirmed Problem Acquired hammer toe of left foot (8914969688077547 ) Other hammer toe(s) (acquired), left foot (M20.42) Active confirmed Problem Acquired deformity of right foot (3759285792507262 0) 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) Active confirmed Problem Acquired deformity of left foot (5371741432532785 4) PlantarFlexion of metatarsal of left foot (M21.6X2) Active confirmed Plan Of Treatment Pending Test Test Name Order Date - Ganglion Cyst Injection/Aspiratio n 04/30/2019 Insurance Providers Payer Name Payer Address Payer Phone Subscriber Number Group Number Insured Name Patient Relationship to Insured Coverage Start Date Coverage End Date Medicare National Govt Sv[employer] [address] [place] [address] [id number] Marianne Monteiro Self - patient is the insured [facility] [address] [place] [address] [id number] Dzierzan owski, Marianne Self - patient is the insured Medical (General) History Medical History History ICD Code Arthritis Back,Hip,and Knee pain Broken bones Fibromyalgia Headaches/Migraines Reflux ( GERD) Sciatica Chicken pox Transfusions Surgical History Surgery Date(Month/Year) Eyes x4 [phone] Tonsils 1974 Disectomy 1999 Ulna reconstruction- rejected screws 198 Hysterectomy 1986 Lynx sling 2005 back surgery 02/2021
== END 2024-08-06 14:47 | disposition home or self-care (01) ==
LOC: HO.XRAY 14:46
PROVIDERS: Visit Provider Registered Nurse Emergency
DX: M43.02 Spondylolysis, cervical region (principal)
CPT/HCPCS: 72052

== ENCOUNTER → 2024-08-06 14:51 | Outpatient (BNV) | payer MEDICARE, OTHER, SELFPAY | PROVIDERS: Visit Provider Specialist | DX: M43.02 Spondylolysis, cervical region (principal) | CPT/HCPCS: 72052 ==

== ENCOUNTER 2024-08-14 11:56 | Outpatient (AMB) | payer MEDICARE, OTHER, SELFPAY ==
[2024-08-14 12:00] VITALS: BP 120/62; PULSE 76; RESP 16; O2SAT 98
--- NOTE | 2024-08-14 12:00 | MHC.OFFVIS ---
Vital Signs 08/14/24 12:00 Height 5 ft 7 in BP 120/62 Blood Pressure Location Lt brachial Position Sitting Respiration 16 Pulse 76 Pulse Source Pulse Oximeter Pulse Oximetry (%) 98 Oxygen Delivery Method Room Air Intake Visit Reasons: Left trapezius TPI/MRI results Allergies latex Allergy (Mild, Verified 08/14/24 12:01) Hives adhesive Allergy (Verified 08/14/24 12:01) Rash bee venom protein (honey bee) Allergy (Verified 08/14/24 12:01) Swelling contrast dye Allergy (Mild, Uncoded 08/14/24 12:01) Unknown Medication List - Last Reconciled 08/14/24 by Maria E Mcwilliams LPN fluoxetine 20 mg PO DAILY fluticasone propionate 50 mcg/actuation sprays intranasal gabapentin 100 mg PO DAILY gabapentin 300 mg PO BEDTIME galantamine 8 mg PO BID lifitegrast 5% (Xiidra) drps ophthalmic (eye) montelukast 10 mg PO DAILY multivitamin 1 tab PO DAILY omeprazole 20 mg PO DAILY onabotulinumtoxinA (Botox) IM trazodone 150 mg PO BEDTIME zolmitriptan (Zomig) take 1 tab at onset of headache; if no relief, may repeat 1 tab after at least 2 hrs; max = 2 tabs/24 hrs PO HPI HPI Left trapezius TPI/MRI results: Details: 74-year-old female with a history of cervicogenic headaches and migraines. 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 She presents today for trial of trigger point injections. Her only painful area is on the top left aspect of her crown. She denies significant neck and shoulder pain. She recently underwent an MRI that showed multilevel degenerative changes with the effacement of the thecal sac at C3-4, but she denies any significant neck, shoulder or arm discomfort. Her main issue is occipital pain in the left side. She has never had occipital nerve blocks that she knows of. She has not tried occipital nerve stimulation therapy in the past. [facility] Medical History (Updated 07/30/24 @ 15:39 by Niyah Lara APRN, [employer]OW[employer] REPA[employer]ER) Occipital neuralgia of left side Back pain Scoliosis Arthritis Surgical History (Updated 07/30/24 @ 16:31 by Niyah Lara APRN, [employer]OW[employer]INET REPAIRER) H/O left wrist surgery H/O: hysterectomy History of tonsillectomy H/O eye surgery History of back surgery Social History Household Members: Spouse Alcohol intake: current Alcohol intake frequency: does not drink Patient Tobacco Use Status: Never used Tobacco Current occupational status: retired Physical Exam Vital Signs: Last Vital Signs Pulse 76 08/14/24 12:00 Resp 16 08/14/24 12:00 BP 120/62 08/14/24 12:00 Pulse Ox 98 08/14/24 12:00 Oxygen Delivery Method Room Air 08/14/24 12:00 On exam today: Appears afebrile. Alert and oriented. Mood and affect appropriate. Follows and participates in conversation appropriately. Respiratory effort is unlabored. Able to transition from sit to stand unassisted. Ambulates with bilaterally normal heel strike and toe off. Able to stand and walk on toes and heels. Loss of cervical lordosis. Stiff straight neck. Tenderness overlying the left occipital and crown region. Office Procedures Nerve Block Details: Greater and Lesser Occipital Nerve Block, left Physical exam was used to isolate the location of the targeted nerves. These injection sites were prepped with alcohol. Using sterile technique, a 25 gauge 1.5 inch needle was introduced into the overlying nerve. A total of 3 mL ropivacaine 0.5% was injected around the left greater and lesser occipital nerves in a fan-like motion. The patient tolerated the procedure well and no complications were encountered. Following the procedure the patient's vital signs were stable. The patient was discharged home in good condition with post-procedural instructions. Time Out: Immediately prior to the procedure, the following was verbally confirmed that there is a signed consent form and that the correct patient, planned procedure, site and side are consistent with documentation and that necessary equipment and/or blood products are available prior to the start of the case. Complications: none EBL: <5 cc CPT: 51572-Llgezvh Occipital Procedure code (CPT) selection complete Results Reviewed Results Reviewed: PROCEDURE: MR SPINE CERVICAL without CONTRAST INDICATION: Neck pain for many years , torticollis. TECHNIQUE: Unenhanced multiplanar, multisequence MR imaging of the cervical spine. COMPARISON: None Available. FINDINGS: Reversal of normal cervical lordosis. No findings of fracture or significant listhesis. There is loss of intervertebral disc space height and marginal osteophyte formation C3-C4, C4-C5, C5-C and C6-C7. Degenerative changes of the C1-C2 articulation and craniocervical junction of otherwise normal relationship. Cervical facet arthrosis. Mild edematous changes of the LEFT C4-C5 facet arthrosis. Prevertebral soft tissues of normal appearance. Examination through the cranial cervical junction showing it to be widely patent. Examination through the C2-C3 intervertebral level without central stenosis or foraminal narrowing. Examination through the C3-C4 intervertebral level revealing facet arthrosis. Uncovertebral degenerative changes. No significant central stenosis. Moderate RIGHT foraminal narrowing. No significant LEFT foraminal narrowing. Examination through the C4-C5 intervertebral level revealing facet arthrosis and uncovertebral degenerative changes. Small posterior disc osteophyte. No significant central stenosis. No significant RIGHT foraminal narrowing. Moderate to severe LEFT foraminal narrowing. Note again made of edematous changes associated with the LEFT C4-C5 facet. Examination through the C5-C6 intervertebral level revealing mild facet arthrosis. Uncovertebral degenerative changes and posterior disc osteophyte. There is effacement of the ventral CSF mild impress on the ventral cord without cord signal changes. Mild RIGHT foraminal narrowing. No significant LEFT foraminal narrowing. Examination through the C6-C7 intervertebral level revealing facet arthrosis. Uncovertebral degenerative changes. Small posterior disc osteophyte. No significant central stenosis. Moderate to severe LEFT foraminal narrowing. No significant RIGHT foraminal narrowing. Examination through the C7-T1 intervertebral level without central stenosis or foraminal narrowing. IMPRESSION: Reversal of normal cervical lordosis. Spondylotic changes and facet arthrosis. No findings of fracture or significant listhesis. Varying degrees of associated central stenosis and foraminal narrowing as above. Note made of edematous changes associated with the LEFT C4-C5 facet arthrosis. No additional level of concern for an acute process. C3-C4 Moderate RIGHT foraminal narrowing. C4-C5 Moderate to severe LEFT foraminal narrowing. Note again made of edematous changes associated with the LEFT C4-C5 facet. C5-C6 There is effacement of the ventral CSF mild impress on the ventral cord without cord signal changes. Mild RIGHT foraminal narrowing. C6-C7 Moderate to severe LEFT foraminal narrowing. Assessment & Plan Assessment & Plan (1) Occipital neuralgia of left side: Code(s): M54.81 - Occipital neuralgia Category: Medical (2) Cervical spondylolysis: Code(s): M43.02 - Spondylolysis, cervical region Category: Medical Plan Status post left greater and lesser occipital diagnostic nerve blocks with ropivacaine 0.5% today. I did not undertake the trigger point injections in her neck and shoulder region because she does not have significant symptoms in that area. We discussed trial of occipital nerve stimulation for her left occipital neuralgia which could be of either a cervicogenic or peripheral source. I provided her with a brochure and went over the details of the procedure including risks and benefits. She will follow-up in 2 weeks via tele visit to see the response to occipital nerve block and then we will proceed accordingly. Coding Level of Care Code Est Pt Level 3 (79809) Diagnoses Occipital neuralgia of left side M54.81 Cervical spondylolysis M43.02 CPT Codes Nerve Block - CPT: 87486-Zskwsce Occipital ([id number])
== END 2024-08-14 12:29 | disposition home or self-care (01) ==
PROVIDERS: PCP Pediatrics; Visit Provider Internal Medicine
DX: M54.81 Occipital neuralgia (principal); M43.02 Spondylolysis, cervical region
CPT/HCPCS: 64405; 64450; 99213

== ENCOUNTER → 2024-08-14 11:56 | Outpatient (BNVA) | payer MEDICARE, OTHER, SELFPAY | PROVIDERS: PCP Pediatrics; Visit Provider Internal Medicine | DX: M54.81 Occipital neuralgia (principal); M43.02 Spondylolysis, cervical region | CPT/HCPCS: 64405; 64450; 99212 ==

== ENCOUNTER 2024-08-31 11:11 | Outpatient (AMB) | payer MEDICARE, OTHER, SELFPAY ==
--- NOTE | 2024-08-31 11:11 | MHC.OFFVIS ---
Intake Visit Reasons: 2 WEEK FOLLOW UP Allergies latex Allergy (Mild, Verified 08/14/24 12:01) Hives adhesive Allergy (Verified 08/14/24 12:01) Rash bee venom protein (honey bee) Allergy (Verified 08/14/24 12:01) Swelling contrast dye Allergy (Mild, Uncoded 08/14/24 12:01) Unknown HPI HPI 2 WEEK FOLLOW UP: Details: History of Present Illness The patient is a 74-year-old female presenting with a request for the repeat of occipital nerve block injections. Approximately ten days ago, the patient received a occipital nerve block injection that resulted in over 90% relief. The patient is exploring the possibility of repeating this intervention to potentially prolong the duration of pain relief. The effectiveness of the nerve block lasted until the recent week, providing significant relief for about ten days. The patient does not report any adverse effects from the previous injection and expresses interest in continuing with this approach before exploring other interventions. Pain Description - Onset recurred after 10 days of relief from initial injection. - A duration of over 90% relief for approximately two weeks. - Patient experienced significant improvement post-injection. - Interested in repeating the procedure for extended relief. - No adverse effects reported from previous injections. Physical Exam Results Pain Management - Affect: No reported issues with mood or psychological wellbeing due to pain. - Analgesia: Previous occipital nerve block provided over 90% relief for approximately ten days. Goal to extend pain-free period with repeat injection. - Adverse Effects: No adverse effects reported from previous injection. - Activities of Daily Living: Not explicitly discussed. - Aberrant Drug Related Behaviors: Not discussed; no suggestions of misuse. [facility] Medical History (Updated 07/30/24 @ 15:39 by Niyha Lara APRN, OTTONIEL) Occipital neuralgia of left side Back pain Scoliosis Arthritis Surgical History (Updated 07/30/24 @ 16:31 by Niyah Lara APRN, [employer] MATE) H/O left wrist surgery H/O: hysterectomy History of tonsillectomy H/O eye surgery History of back surgery Social History Household Members: Spouse Alcohol intake: current Alcohol intake frequency: does not drink Patient Tobacco Use Status: Never used Tobacco Current occupational status: retired [employer] Telehealth Platform: [facility] Location of provider rendering services: practice address Location of patient: address on file Patient Identification confirmed using: Name, : Yes Telehealth method: video Patient verbally consented to treatment: Yes Patient verbally consented to billing insurance company: Yes Patient informed of any privacy concerns related to visit: Yes Minutes spent on Phone/Video with Pt.: 10 Assessment & Plan Assessment & Plan (1) Occipital neuralgia of left side: Code(s): M54.81 - Occipital neuralgia Category: Medical Plan Plan - Schedule patient for a follow-up appointment for repeat occipital nerve block injection at the left side. - Monitor relief duration from repeat injections before considering further interventions. Patient was informed and verbally consented to the use of an ambient scribe for clinic note documentation during this visit. Discussion Notes I discussed with the patient the effectiveness of the previous occipital nerve block injection, which provided significant relief for approximately ten days. We reviewed the possibility of repeating the procedure to potentially extend the relief period. I explained that these injections are generally harmless and can be repeated. I provided the office front man contact information for scheduling future appointments to continue this line of treatment. Patient Instructions - Contact the office at [phone] to schedule an appointment for a repeat occipital nerve block injection. - Monitor the duration of relief after the next injection and report any changes. - Return to the clinic for evaluation or immediate care if experiencing any unexpected symptoms or complications. Coding Level of Care Code Tele Est Pt Level 3 (49127) Diagnoses Occipital neuralgia of left side M54.81
--- OUTSIDE RECORDS SUMMARY | 2024-08-31 16:07 | XMS_ITS | Patient Health Record ---
[facility] Address [address] [place] [address] Care Team Providers Care Oncology Rn Name Role Phone Xavier Segura MD Primary Care Provider Unavail able Black, Mini Unavailable [phone] Allergies Allergen (clinical drug ingredient) Drug/Non Drug [...] Immunizations Vaccine Route Administration Date Status Comme [facility] COVID-19 Pfizer BioNTech Vaccine Unknown 07/05/2021 [...] primary osteoarthritis of the ankle and/or foot (199535826) Primary osteoarthritis, right ankle and foot (M19.071) Active confirmed Problem Localized, primary osteoarthritis of the ankle and/or foot (651719385) Primary osteoarthritis, left ankle and foot (M19.072) Active confirmed Problem Acquired hammer toe of right foot (3104925429459969 ) Other hammer toe(s) (acquired), right foot (M20.41) Active confirmed Problem Acquired hammer toe of left foot (9115926247146523 ) Other hammer toe(s) (acquired), left foot (M20.42) Active confirmed Problem Acquired deformity of right foot (5421509206315317 0) 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) Active confirmed Problem Acquired deformity of left foot (1183353515979612 4) PlantarFlexion of metatarsal of left foot (M21.6X2) Active confirmed Plan Of Treatment Pending Test Test Name Order Date - Ganglion Cyst Injection/Aspiratio n 04/30/2019 Insurance Providers Payer Name Payer Address Payer Phone Subscriber Number Group Number Insured Name Patient Relationship to Insured Coverage Start Date Coverage End Date Medicare National Govt Svcs Inc [address] [facility] [address] [id number] Marianne Monteiro Self - patient is the insured [facility] [address] [place] [address] [id number] Dzierzan owski, Marianne Self - patient is the insured Medical (General) History Medical History History ICD Code Arthritis Back,Hip,and Knee pain Broken bones Fibromyalgia Headaches/Migraines Reflux ( GERD) Sciatica Chicken pox Transfusions Surgical History Surgery Date(Month/Year) Eyes x4 [phone] Tonsils 1974 Disectomy 1999 Ulna reconstruction- rejected screws 198 Hysterectomy 1986 Lynx sling 2005 back surgery 02/2021
--- OUTSIDE RECORDS SUMMARY | 2024-08-31 16:07 | XMS_ITS | Clinical Summary ---
Author Organization [facility] Address [address] [place] [address] Phone Care Team Providers Care Department Specialist Name Role Phone Physician, Pcp Unknown Primary Care Provider Naye vailable Encounters Date Type Department Care Team Description 06/11/2024 4:35 PM EST - 06/11/2024 11:59 PM EST Hospital Encounter [facility] MRI [address] [place] [id number] Alzheimer's disease ([facility]) Discharge Disposition: Home or Self Care 06/04/2024 7:37 AM EDT - 06/04/2024 11:59 PM EDT Hospital Encounter [facility] MRI [address] [place] [id number] Discharge Disposition: Home or Self Care from Last 3 Months Social History Tobacco Use Types Packs/Day Years Used Date Smoking Tobacco: Never Assessed Sex and Gender Information Value Date Recorded Sex Assigned at Not on file Gender Identity Not on file Sexual Orientation Not on file Job Start Date Occupation Industry Not on file Not on file Not on file Plan of Treatment Health Maintenance Due Date Last Done Comments Colorectal Cancer Screening: Colonoscopy 08/29/2023 Falls Risk Assessment 08/29/2023 Hepatitis C Screening 08/29/2023 Medicare Annual Wellness Visit 08/29/2023 Social Influencers of Health Screening 08/29/2023 RSV Immunization Patients 60+ Years Old (1 - 1-dose 75+ series) 01/10/2024 Depression Screening 10/23/2024 10/24/2023 Cholesterol Screening (Lipid Panel) 07/02/2027 07/02/2022 Osteoporosis Screening (Bone Density Screening) 03/10/2029 03/10/2019 DTaP,Tdap,and Td Vaccines (3 - Td or Tdap) 03/05/2033 03/05/2023, 05/29/2012 Pneumococcal Vaccine: 65+ Years Completed 01/23/2016, 01/17/2015, 05/29/2012 Zoster Vaccines Completed 05/12/2020, 02/10/2020 Breast Cancer Screening Discontinued 06/17/2023 COVID-19 Vaccine Completed 06/10/2024, 03/2023, 06/15/2022, Additional history exists Influenza Vaccine Completed 06/10/2024, , 06/08/2022, Additional history exists HIB Vaccines Aged Out No longer eligi ble based on patient's age to complete this topic HPV Vaccines Aged Out No longer eligi ble based on patient's age to complete this topic Hepatitis A Vaccines Aged Out No long er eligible based on patient's age to complete this topic Hepatitis B Vaccines Aged Out No long er eligible based on patient's age to complete this topic IPV Vaccines Aged Out No longer eligi ble based on patient's age to complete this topic MMR Vaccines Aged Out No longer eligi ble based on patient's age to complete this topic Meningococcal ACWY Vaccine Aged Out N o longer eligible based on patient's age to complete this topic RSV Immunization Patients Under 20 months Aged Out No longer eligible based on patient's age to complete this topic Varicella Vaccines Aged Out No longer eligible based on patient's age to complete this topic Procedures Procedure Name Priority Date/Time Associated Diagnosis Comments MR BRAIN WO CONTRAST Routine 06/11/2024 5:04 PM EST Alzheimer's disease ([facility]) from Last 3 Months Results * MR Brain wo Contrast (06/11/2024 5:04 PM EST) Anatomical Region Laterality Modality Head and Neck Magnetic Resonan ce 06/18/2024 3:25 PM EST Impressions 06/18/2024 3:36 PM EST No acute findings. Temporoparietal predominant volume loss, similar compared to the prior exam. -------- FINAL REPORT -------- Dictated By: DANIEL SCOTT Dictated Date: 06/18/2024 15:25 ET Assigned Physician: DANIEL SCOTT Reviewed and Electronically Signed By: DANIEL SCOTT Signed Date: 06/18/2024 15:36 ET Workstation ID: [id number] Transcribed By: Self Edit Transcribed Date: 06/18/2024 15:25 ET Narrative 06/18/2024 3:36 PM EST PROCEDURE: Brain MRI INDICATION: Alzheimer's disease TECHNIQUE: Multiplanar, multisequence MRI of the brain Without contrast. COMPARISON: ??11/05/2023 FINDINGS: No acute infarct, mass effect, or intracranial hemorrhage. Minimal chronic small vessel ischemic change throughout the supratentorial white matter, similar compared to prior. ??Sella and foramen magnum are normal. Ventricles are unchanged in size and configuration. ??Diffuse cerebral volume loss is unchanged with temporoparietal predominant volume loss. ??No hydrocephalus. Major intracranial arterial flow voids are within normal limits. Sinuses and mastoid air cells are clear. ??Orbits and extracranial soft tissues are normal. ??Calvarium is normal. Procedure Note Daniel Scott MD - 06/18/2024 PROCEDURE: Brain MRI INDICATION: Alzheimer's disease TECHNIQUE: Multiplanar, multisequence MRI of the brain Without contrast. COMPARISON: 11/05/2023 FINDINGS: No acute infarct, mass effect, or intracranial hemorrhage. Minimal chronic small vessel ischemic change throughout the supratentorialwhite matter, similar compared to prior. Sella and foramen magnum arenormal. Ventricles are unchanged in size and configuration. Diffuse cerebralvolume loss is unchanged with temporoparietal predominant volume loss. Nohydrocephalus. Major intracranial arterial flow voids are within normal limits. Sinuses and mastoid air cells are clear. Orbits and extracranial softtissues are normal. Calvarium is normal. IMPRESSION: No acute findings. Temporoparietal predominant volume loss, similar compared to the priorexam. -------- FINAL REPORT -------- Dictated By: DANIEL SCOTT Dictated Date: 06/18/2024 15:25 ET Assigned Physician: DANIEL SCOTT Reviewed and Electronically Signed By: DANIEL SCOTT Signed Date: 06/18/2024 15:36 ET Workstation ID: [id number] Transcribed By: Self Edit Transcribed Date: 06/18/2024 15:25 ET Tomasa Santillan [facility] IMG MRI PROCEDURE S from Last 3 Months Care Teams Department Specialist Relationship Specialty Start Date End Date Physician, Pcp Unknown PCP - General 06/11/24
--- OUTSIDE RECORDS SUMMARY | 2024-08-31 16:07 | XMS_ITS ---
[facility] Address [address] [place] [address] Care Team Providers Care Eight Section Blower Name Role Phone Xavier Segura MD Primary Care Provider Unavail able Black, Mini Unavailable [phone] Allergies Allergen (clinical drug ingredient) Drug/Non Drug [...] 023 Encounters Encounter Location Date Provider Diagnosis [facility] [address] [place] [address] 06/13/2023 Mini Black Plantar fascial fibromatosis M72.2 [...] Notes * Marianne GRANTDOB:02/1950 (73 yo F)Acc No.[id number]:06/13/2023 Progress Note Patient:?Lisseth Grant Provider:?Mini Mejia DPM :1950???Age:73 Y???Sex:Female D ate:06/13/2023 Address:[address] Pcp:Xavier Segura MD Subjective: * Chief Complaints: [...] Provider:?Mini Mejia DPM Date:?2022 Generated for Angie oswald/Jessy/Erinsmitting on:?08/31/2024 04:06 PM EST History and Physical Notes * [...]
--- OUTSIDE RECORDS SUMMARY | 2024-08-31 16:07 | XMS_ITS | Clinical Summary ---
Author Organization [facility] Address [address] [place] [address] Care Team Providers Care Computer Systems Technician Name Role Phone Xavier Segura MD Primary Care Provider [phone] Allergies Active Allergy Reactions Criticality Noted Date Comments Fluconazole Hives,Itching 02/20/2016 Iodinated Contrast Media Hives 05/03/2000 Medications Medication Sig Dispensed Refills Start Date End Date Status carisoprodol (SOMA) 350 MG tablet TAKE 1 TABLET BY MOUTH 4 TIMES A DAY NEEDED 0 11/16/2017 Active celecoxib (CELEBREX) 200 MG capsule TAKE 1 CAPSULE ONCE DAILY 0 11/18/2017 Active esterified estrogens (MENEST) 0.3 MG tablet Take 0.3 mg by mouth. 0 Active Fluocinonide 0.1 % CREA APPLY TO ITCHY AREAS ON BODY TWICE A DAY 1 10/21/2017 Active FLUoxetine (PROZAC) 20 MG capsule Take 20 mg by mouth. 0 11/18/2017 Active fluticasone (FLONASE) 50 MCG/ACT nasal spray USE 2 SPRAYS NASALLY DAILY NEEDED FOR ALLERGIES 0 10/16/2017 Active gabapentin (NEURONTIN) 600 MG tablet Take 600 mg by mouth. 0 11/18/2017 Active montelukast (SINGULAIR) 10 MG tablet Take 10 mg by mouth. 0 11/18/2017 Active nefazodone (SERZONE) 200 MG tablet TAKE 1 AND 1/2 TABLETS DAILY AT BEDTIME 0 11/18/2017 Active ZOLMitriptan (ZOMIG) 5 MG tablet TAKE 1 TABLET (5 MG TOTAL) BY MOUTH NEEDED FOR MIGRAINE. 6 11/18/2017 Active ZOLMitriptan (ZOMIG) 5 MG tablet Take 5 mg by mouth. 0 11/18/2017 Acti ve Active Problems No known active problems Social History Tobacco Use Types Packs/Day Years Used Date Smoking Tobacco: Never Assessed Sex and Gender Information Value Date Recorded Sex Assigned at Not on file Gender Identity Not on file Sexual Orientation Not on file Plan of Treatment Health Maintenance Due Date Last Done Comments Hepatitis C Screening 1950 COVID-19 Vaccine (#1) 1950 Depression Screening 1961 Preventative Health Evaluation 1967 Colon Cancer Screening (Colonoscopy) 1994 Shingrix-Zoster Vaccine (1 of 2) 1999 Fall Risk Assessment 2014 Osteoporosis Screening (DEXA Scan) 2014 DTap / Tdap / Td (2 - Td or Tdap) 05/29/2022 05/29/2012 RSV Adult > 60+ Yrs or (1 - 1-dose 75+ series) 01/10/2024 Influenza Vaccine (#1) 2024 7, 07/09/2016, 07/21/2015, Additional history exists Pneumococcal Vaccine Completed 01/23/2016, 01/17/2015, 05/29/2012 Hepatitis B Vaccines Aged Out No long er eligible based on patient's age to complete this topic RSV Ped < 20 months Aged Out No longe r eligible based on patient's age to complete this topic Care Teams Computer Systems Technician Relationship Specialty Start Date End Date Xavier Segura MD [address] [place] [address] PCP - General Registry Nurse 11/18/17
== END 2024-08-31 11:12 | disposition home or self-care (01) ==
LOC: HO.PMC 11:11
PROVIDERS: PCP Pediatrics; Visit Provider Internal Medicine
DX: M54.81 Occipital neuralgia (principal)
CPT/HCPCS: 99213

== ENCOUNTER 2024-09-09 09:42 | Outpatient (AMB) | payer MEDICARE, OTHER, SELFPAY ==
--- NOTE | 2024-09-09 10:16 | MHC.OFFVIS ---
Vital Signs 09/09/24 10:17 Height 5 ft 7 in BP 113/54 L Blood Pressure Location Lt brachial Position Sitting Respiration 16 Pulse 72 Pulse Source Pulse Oximeter Pulse Oximetry (%) 96 Oxygen Delivery Method Room Air Intake Visit Reasons: Occipital nerve block Window Cutter Required: No Digital Forensics Investigator: Digital Forensics Investigator Present Accompanied by: Johnathan mata Allergies latex Allergy (Mild, Verified 09/09/24 10:19) Hives adhesive Allergy (Verified 09/09/24 10:19) Rash bee venom protein (honey bee) Allergy (Verified 09/09/24 10:19) Swelling contrast dye Allergy (Mild, Uncoded 09/09/24 10:19) Unknown Medication List - Last Reconciled 09/09/24 by Maria E Mcwilliams LPN fluoxetine 20 mg PO DAILY fluticasone propionate 50 mcg/actuation sprays intranasal gabapentin 100 mg PO DAILY gabapentin 300 mg PO BEDTIME galantamine 8 mg PO BID lifitegrast 5% (Xiidra) drps ophthalmic (eye) montelukast 10 mg PO DAILY multivitamin 1 tab PO DAILY omeprazole 20 mg PO DAILY onabotulinumtoxinA (Botox) IM trazodone 150 mg PO BEDTIME zolmitriptan (Zomig) take 1 tab at onset of headache; if no relief, may repeat 1 tab after at least 2 hrs; max = 2 tabs/24 hrs PO HPI HPI Occipital nerve block: Details: History of Present Illness The patient is a 74-year-old female presenting with occipital neuralgia. This condition first necessitated treatment on August 14, when she received an occipital nerve block that provided relief for approximately two and a half weeks. The patient describes the onset of symptoms as a mild pulsation that escalates, with intermittent flashes before settling into constant pain. The pain localizes primarily on the left side of the head. Previous discussions revealed the return of symptoms mirrored the usual progression observed in her condition. The patient returned to the clinic on August 31, although no interventions were performed at that time. She has observed improvement with interventions, although noted decreases in efficacy over time. Pain Description - Onset and Timing: Initially occurs as a mild pulsation. - Quality and Character: Builds from mild pulsation to constant pain with flashes. - Primary Location: Left occipital region. - Radiation: None specifically noted. - Exacerbating Factors: No specific factors identified. - Relieving Factors: Occipital nerve block provides temporary relief. - Affected Activities: The severity can disrupt normal daily functions when untreated. Physical Exam Appears afebrile. Alert and oriented. Mood and affect appropriate. Follows and participates in conversation appropriately. Respiratory effort is unlabored. Able to transition from sit to stand unassisted. Ambulates with bilaterally normal heel strike and toe off. Able to stand and walk on toes and heels. Results - Tests and Diagnostics: Occipital nerve block was performed. Pain Management - Affect: Not explicitly discussed. - Analgesia: Nerve block with stronger formulation of medication than previously used. - Adverse Effects: Not explicitly discussed, effects deemed tolerable with pain management. - Activities of Daily Living: Function improved with treatment, but diminishes as the block effect wears off. - Aberrant Drug Related Behaviors: None identified. [facility] Medical History (Updated 07/30/24 @ 15:39 by Niyah Lara APRN, OVERNIGHT CASHIER) Occipital neuralgia of left side Back pain Scoliosis Arthritis Surgical History (Updated 07/30/24 @ 16:31 by Niyah Lara APRN, OTTONIEL) H/O left wrist surgery H/O: hysterectomy History of tonsillectomy H/O eye surgery History of back surgery Social History Household Members: Spouse Alcohol intake: current Alcohol intake frequency: does not drink Patient Tobacco Use Status: Never used Tobacco Current occupational status: retired Physical Exam Vital Signs: Last Vital Signs Pulse 72 09/09/24 10:17 Resp 16 09/09/24 10:17 BP 113/54 L 09/09/24 10:17 Pulse Ox 96 09/09/24 10:17 Oxygen Delivery Method Room Air 09/09/24 10:17 Office Procedures Nerve Block Details: Greater and Lesser Occipital Nerve Block, left Physical exam was used to isolate the location of the targeted nerves. These injection sites were prepped with alcohol. Using sterile technique, a 25 gauge 1.5 inch needle was introduced into the overlying nerve. A total of 3 mL ropivacaine 0.5% was injected around the left greater and lesser occipital nerves in a fan-like motion. The patient tolerated the procedure well and no complications were encountered. Following the procedure the patient's vital signs were stable. The patient was discharged home in good condition with post-procedural instructions. Time Out: Immediately prior to the procedure, the following was verbally confirmed that there is a signed consent form and that the correct patient, planned procedure, site and side are consistent with documentation and that necessary equipment and/or blood products are available prior to the start of the case. Complications: none EBL: <5 cc CPT: 47269-Iccjnyz Occipital Procedure code (CPT) selection complete Assessment & Plan Assessment & Plan (1) Occipital neuralgia of left side: Code(s): M54.81 - Occipital neuralgia Category: Medical Plan Plan - Continue occipital nerve blocks to address occipital neuralgia. Schedule monthly to provide sustained relief and avoid insurance issues related to more frequent treatment. - Consideration of different formulations of lidocaine to potentially extend duration of pain relief. Patient was informed and verbally consented to the use of an ambient scribe for clinic note documentation during this visit. Discussion Notes I discussed with the patient the management of her occipital neuralgia using regular occipital nerve blocks. We reviewed previous responses and considered using a slightly stronger formulation of lidocaine to assess potential for longer duration of relief. The necessity for spacing treatments monthly was explained due to both medical considerations and insurance clearance, acknowledging the potential for minor symptoms in the interim. The patient consented to this plan and understood the procedural risks and benefits discussed. Patient Instructions - Schedule an occipital nerve block at the beginning of each month. - Monitor for and report any changes in pain patterns. - Contact the clinic if pain becomes severe or unmanageable before the scheduled block. - Maintain communication regarding any side effects experienced following treatment. Coding Level of Care Code Est Pt Level 3 (57122) Diagnoses Occipital neuralgia of left side M54.81 CPT Codes Nerve Block - CPT: 27906-Yskcvwt Occipital ([id number])
--- OUTSIDE RECORDS SUMMARY | 2024-09-09 10:16 | XMS_ITS | Clinical Summary ---
Author Organization [facility] Address [address] [place] [address] Phone Care Team Providers Care Relief Man Name Role Phone Physician, Pcp Unknown Primary Care Provider Naye vailable Encounters Date Type Department Care Team Description 06/11/2024 4:35 PM EST - 06/11/2024 11:59 PM EST Hospital Encounter [facility] MRI [address] [place] [id number] Alzheimer's disease ([facility]) Discharge Disposition: Home or Self Care from [...] Routine 06/11/2024 5:04 PM EST Alzheimer's disease ([facility]) from Last 3 Months Results * MR [...] Signed Date: 06/18/2024 15:36 ET Workstation ID: [id number] Transcribed By: Self Edit Transcribed Date: 06/18/2024 [...] Signed Date: 06/18/2024 15:36 ET Workstation ID: [id number] Transcribed By: Self Edit Transcribed Date: 06/18/2024 15:25 ET Tomasa Santillan [facility] IM MRI PROCEDURE S from Last 3 Months Care Teams Relief Man Relationship Specialty Start Date End Date Physician, Pcp Unknown PCP - General 06/11/24
--- OUTSIDE RECORDS SUMMARY | 2024-09-09 10:16 | XMS_ITS | Clinical Summary ---
Author Organization [facility] Address [address] [place] [address] Care Team Providers Care Linter Drier Operator Name Role Phone Xavier Segura MD Primary Care Provider [phone] Allergies Active Allergy Reactions Criticality Noted Date [...] age to complete this topic Care Teams Linter Drier Operator Relationship Specialty Start Date End Date Xavier Segura MD [address] [place] [address] PCP - General Sterilization Specialist 11/18/17
[2024-09-09 10:17] VITALS: BP 113/54; PULSE 72; RESP 16; O2SAT 96
== END 2024-09-09 10:39 | disposition home or self-care (01) ==
PROVIDERS: PCP Pediatrics; Visit Provider Internal Medicine
DX: M54.81 Occipital neuralgia (principal)
CPT/HCPCS: 64405; 64450

== ENCOUNTER → 2024-09-09 09:42 | Outpatient (BNVA) | payer MEDICARE, OTHER, SELFPAY | PROVIDERS: PCP Pediatrics; Visit Provider Internal Medicine | DX: M54.81 Occipital neuralgia (principal) | CPT/HCPCS: 64405; 64450 ==

== ENCOUNTER 2024-10-06 12:35 | Outpatient (AMB) | payer MEDICARE, OTHER, SELFPAY ==
--- NOTE | 2024-10-06 12:40 | A.OFFVIS_ITS ---
Vital Signs 10/06/24 12:41 Height 5 ft 7 in BP 120/72 Blood Pressure Location Rt brachial Position Sitting Pulse 76 Pulse Source Pulse Oximeter Pulse Oximetry (%) 97 Oxygen Delivery Method Room Air Intake Visit Reasons: BOTOX Intake Note: patient here for botox injection. Practice supplied Allergies latex Allergy (Mild, Verified 10/06/24 12:51) Hives adhesive Allergy (Verified 10/06/24 12:51) Rash bee venom protein (honey bee) Allergy (Verified 10/06/24 12:51) Swelling contrast dye Allergy (Mild, Uncoded 10/06/24 12:51) Unknown HPI Comments Details: 74-year-old female comes for treatment of her migraines and spasmodic torticollis. Side affects including injection site reaction neck pain headaches muscular weakness musculoskeletal stiffness bronchitis allergic reaction myalgia facial paresis hypertension muscle spasms Excedrin were discussed in detail with the patient patient agrees to the procedure. Botulinum toxin type 100 units lot number [id number] 07/2026 x 3 was diluted with 2 cc of normal saline. Muscles injected Bilateral splenius 50 units Bilateral levator 50 units each. Occipitalis 15 units each Temporalis 20 units each. Adebayo semispinalis 15 units each Total used 300 units PFSH Medical History Occipital neuralgia of left side Back pain Scoliosis Arthritis Surgical History H/O left wrist surgery H/O: hysterectomy History of tonsillectomy H/O eye surgery History of back surgery Social History Household Members: Spouse Alcohol intake: current Alcohol intake frequency: does not drink Patient Tobacco Use Status: Never used Tobacco Current occupational status: retired Physical Exam Vital Signs: Last Vital Signs Pulse 76 10/06/24 12:41 BP 120/72 10/06/24 12:41 Pulse Ox 97 10/06/24 12:41 Oxygen Delivery Method Room Air 10/06/24 12:41 Const Orientation/consciousness: patient oriented x3 Neck Other: spasmodic torticollis Restricted range of motion Neuro General: patient oriented x3, gait normal, tone normal, moves all extremities and no focal motor deficits Office Procedures Botulinum toxin Injection 38406 - Dystonia Procedure code (CPT) selection complete Office Meds onabotulinumtoxinA 100 unit solution for injection Performing Provider: Amy Hernandes MD Performing Location: [facility] Administered by: Amy Hernandes MD on 10/06/24 13:20 Dose Route Admin Location Dispensed Lot Number Expiration Date NDC Meter Repairer Helper 300 unit IM 300 units [id number] ALLERGAN/BOTOX Comments: see HPI Assessment & Plan Assessment & Plan (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 She will call with any side effects. Orders: Orders Other Ref Test - [facility] Today G24.3 - Spasmodic torticollis, M43.02 - Spondylolysis, cervical region AMB Botulinum toxin Injection Today G24.3 - Spasmodic torticollis Medications: New onabotulinumtoxinA 100 units IM ONCE 3 ea 0RF torticollis G24.3 - Spasmodic torticollis Coding Level of Care Code Est Pt Level 1 (99208) Diagnoses Spasmodic torticollis G24.3 Chronic migraine without aura without status migrainosus, not intractable G43.709 Status migrainosus presence: without status migrainosus Intractability: not intractable CPT Codes Botox Injection - Botox 4: 91556 - Dystonia ([id number])
[2024-10-06 12:41] VITALS: BP 120/72; PULSE 76; O2SAT 97
--- OUTSIDE RECORDS SUMMARY | 2024-10-06 15:40 | XMS_ITS ---
[facility] Address [address] [place] [address] Care Team Providers Care Industrial Service Technician Name Role Phone Xavier Segura MD Primary Care Provider Unavail able Black, Mini Unavailable [phone] Allergies Allergen (clinical drug ingredient) Drug/Non Drug [...] 023 Encounters Encounter Location Date Provider Diagnosis [facility] [place] [address] [place] [address] 06/13/2023 Mini Black Plantar fascial fibromatosis M72.2 [...] Notes * Marianne GRANTDOB:02/1950 (73 yo F)Acc No.[id number]:06/13/2023 Progress Note Patient:?Lisseth Grant Provider:?Mini Mejia DPM :1950???Age:73 Y???Sex:Female D ate:06/13/2023 Address:[address] Pcp:Xavier Segura MD Subjective: * Chief Complaints: [...] Mejia DPM Date:?2022 Generated for Angie oswald/Jessy/Erinsmitting on:?10/06/2024 03:39 PM EST History and Physical Notes * [...]
--- OUTSIDE RECORDS SUMMARY | 2024-10-06 15:40 | XMS_ITS | Patient Health Record ---
[facility] Address [address] [place] [address] Care Team Providers Care Color Buffer Name Role Phone Xavier Segura MD Primary Care Provider Unavail able Black, Mini Unavailable [phone] Allergies Allergen (clinical drug ingredient) Drug/Non Drug [...] Immunizations Vaccine Route Administration Date Status Comme [facility] COVID-19 Pfizer BioNTech Vaccine Unknown 07/05/2021 [...] primary osteoarthritis of the ankle and/or foot (718560792) Primary osteoarthritis, right ankle and foot (M19.071) Active confirmed Problem Localized, primary osteoarthritis of the ankle and/or foot (030708222) Primary osteoarthritis, left ankle and foot (M19.072) Active confirmed Problem Acquired hammer toe of right foot (4192566657509962 ) Other hammer toe(s) (acquired), right foot (M20.41) Active confirmed Problem Acquired hammer toe of left foot (9828172353502653 ) Other hammer toe(s) (acquired), left foot (M20.42) Active confirmed Problem Acquired deformity of right foot (3216493159123637 0) 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) Active confirmed Problem Acquired deformity of left foot (9139014921078086 4) PlantarFlexion of metatarsal of left foot (M21.6X2) Active confirmed Plan Of Treatment Pending Test Test Name Order Date - Ganglion Cyst Injection/Aspiratio n 04/30/2019 Insurance Providers Payer Name Payer Address Payer Phone Subscriber Number Group Number Insured Name Patient Relationship to Insured Coverage Start Date Coverage End Date Medicare National [employer] [address] [facility] [address] [id number] Marianne Monteiro Self - patient is the insured [facility] [address] [place] [address] [phone] [id number] Dzierzan owski, Marianne Self - patient is the insured Medical (General) History Medical History History ICD Code Arthritis Back,Hip,and Knee pain Broken bones Fibromyalgia Headaches/Migraines Reflux ( GERD) Sciatica Chicken pox Transfusions Surgical History Surgery Date(Month/Year) Eyes x4 [phone] Tonsils 1974 Disectomy 1999 Ulna reconstruction- rejected screws 198 Hysterectomy 1986 Lynx sling 2005 back surgery 02/2021
--- OUTSIDE RECORDS SUMMARY | 2024-10-06 15:40 | XMS_ITS | Clinical Summary ---
Author Organization [facility] Address [address] [place] [address] Phone Care Team Providers Care Director Strategy Name Role Phone Physician, Pcp Unknown Primary Care Provider Naye vailable Social History Tobacco Use Types Packs/Day Years Used Date Smoking Tobacco: Never Assessed Comments Unknown Sex and Gender Information Value Date Recorded Sex Assigned at Not on file Legal Sex Female 8:23 PM EST Gender Identity Not on file Sexual Orientation [...] or Tdap) 03/05/2033 03/05/2023, 05/29/2012 Pneumococcal Vaccine: 50+ Years Completed 01/23/2016, 01/17/2015, 05/29/2012 Zoster Vaccines [...] patient's age to complete this topic Meningococcal B Vacine Aged Out No lo nger eligible based on patient's age to complete this topic RSV Immunization Patients Under 20 months Aged Out No longer eligible based on patient's age to complete this topic Varicella Vaccines Aged Out No longer eligible based on patient's age to complete this topic Insurance MEDICARE Care Teams Director Strategy Relationship Specialty Start Date End Date Physician, Pcp Unknown PCP - General 06/11/24
--- OUTSIDE RECORDS SUMMARY | 2024-10-06 15:40 | XMS_ITS | Clinical Summary ---
Author Organization [facility] Address [address] [place] [address] Care Team Providers Care Pharmacy Clerk Name Role Phone Xavier Segura MD Primary Care Provider Allergies Active Allergy Reactions Criticality Noted Date [...] age to complete this topic Care Teams Pharmacy Clerk Relationship Specialty Start Date End Date Xavier Segura MD [address] [place] [address] PCP - General National Investigative Producer 11/18/17
== END 2024-10-06 13:16 | disposition home or self-care (01) ==
PROVIDERS: PCP Pediatrics; Visit Provider Psychiatry & Neurology Neurology
DX: G24.3 Spasmodic torticollis (principal); G43.709 Chronic migraine without aura, not intractable, without status migrainosus
CPT/HCPCS: 64616

== ENCOUNTER 2024-10-06 12:35 | Outpatient (REF) | payer MEDICARE, OTHER, SELFPAY ==
--- OUTSIDE RECORDS SUMMARY | 2024-10-06 16:43 | XMS_ITS | Clinical Summary ---
Author Organization [facility] Address [address] [place] [address] Phone Care Team Providers Care Automotive Internet Sales Manager Name Role Phone Physician, Pcp Unknown Primary [...] complete this topic Insurance MEDICARE Care Teams Automotive Internet Sales Manager Relationship Specialty Start Date End Date Physician, Pcp Unknown PCP - General 06/11/24
--- OUTSIDE RECORDS SUMMARY | 2024-10-06 16:43 | XMS_ITS | Clinical Summary ---
Author Organization [facility] Address [address] [place] [address] Care Team Providers Care Operations Staff Specialist Security Name Role Phone Xavier Segura MD Primary Care Provider [phone] Allergies Active Allergy Reactions Criticality Noted Date [...] age to complete this topic Care Teams Operations Staff Specialist Security Relationship Specialty Start Date End Date Xavier Segura MD [address] [place] [address] PCP - General Clinical Trial Head 11/18/17
== END 2024-10-06 12:36 | disposition home or self-care (01) ==
LOC: HO.HKASLDS 12:35
PROVIDERS: Visit Provider Psychiatry & Neurology Neurology
DX: G24.3 Spasmodic torticollis (principal); M43.02 Spondylolysis, cervical region; G43.709 Chronic migraine without aura, not intractable, without status migrainosus
CPT/HCPCS: 64616; 64620; 86341; 99211; J0585

== ENCOUNTER 2024-10-09 11:01 | Outpatient (AMB) | payer MEDICARE, OTHER, SELFPAY ==
--- NOTE | 2024-10-09 11:01 | MHC.OFFVIS ---
Vital Signs 10/09/24 11:19 Height 5 ft 7 in BMI Reason not done Patient refused/unable BP 116/58 L Blood Pressure Location Lt brachial Position Sitting Respiration 16 Pulse 73 Pulse Source Pulse Oximeter Pulse Oximetry (%) 93 Oxygen Delivery Method Room Air Intake Visit Reasons: occipital NB Hostel Manager Required: No Development Spec: Development Spec Present Accompanied by: Farrah Laird Allergies latex Allergy (Mild, Verified 10/09/24 11:25) Hives adhesive Allergy (Verified 10/09/24 11:25) Rash bee venom protein (honey bee) Allergy (Verified 10/09/24 11:25) Swelling contrast dye Allergy (Mild, Uncoded 10/06/24 12:51) Unknown HPI HPI occipital NB: Details: History of Present Illness The patient is a 74-year-old female presenting with occipital neuralgia. The patient's symptoms have persisted despite undergoing trigger point injections, which previously failed to deliver satisfactory relief. Management of her condition so far has included targeting the occipital nerves through injections, but these efforts have been confounded by potential inaccuracies in targeting the nerve layers. The current visit is intended to repeat the injection on the left side, with a consideration of alternate pain relief strategies if today's treatment is unsuccessful. Pain Description - Onset: Prior to the last visit. - Quality: Not specified, likely nerve-related. - Location: Greater and lesser occipital nerves on the left side. - Exacerbating factors: Ineffective site targeting. - Relieving factors: Effective site targeting. - Areas affected: Left occipital region. - Interference: Potentially daily activities and comfort due to unresolved pain. Pain Management - Affect: Impact on daily routine discussed but not explicitly described in terms of mood or psychological wellbeing. - Analgesia: Current treatment involves occipital nerve blocks with 5 mL of 0.5% bupivacaine administered as a single left-sided injection with no reported adverse effects from the procedure. - Adverse Effects: None reported during the conversation. - Activities of Daily Living: Potential interference due to ineffective pain management; specific impacts were not detailed. - Aberrant Drug Related Behaviors: None mentioned. Greater and Lesser Occipital Nerve Block, left Physical exam was used to isolate the location of the targeted nerves. These injection sites were prepped with alcohol. Using sterile technique, a 25 gauge 1.5 inch needle was introduced into the overlying nerve. A total of 3 mL ropivacaine 0.5% was injected around the left greater and lesser occipital nerves in a fan-like motion. The patient tolerated the procedure well and no complications were encountered. Following the procedure the patient's vital signs were stable. The patient was discharged home in good condition with post-procedural instructions. Time Out: Immediately prior to the procedure, the following was verbally confirmed that there is a signed consent form and that the correct patient, planned procedure, site and side are consistent with documentation and that necessary equipment and/or blood products are available prior to the start of the case. Complications: none EBL: <5 cc CPT: 16512-[id number] Occipital Procedure code (CPT) selection complete [facility] Medical History Occipital neuralgia of left side Back pain Scoliosis Arthritis Surgical History H/O left wrist surgery H/O: hysterectomy History of tonsillectomy H/O eye surgery History of back surgery Social History Household Members: Spouse Alcohol intake: current Alcohol intake frequency: does not drink Patient Tobacco Use Status: Never used Tobacco Current occupational status: retired Physical Exam Vital Signs: Last Vital Signs Pulse 73 10/09/24 11:19 Resp 16 10/09/24 11:19 BP 116/58 L 10/09/24 11:19 Pulse Ox 93 10/09/24 11:19 Oxygen Delivery Method Room Air 10/09/24 11:19 Assessment & Plan Assessment & Plan (1) Occipital neuralgia of left side: Code(s): M54.81 - Occipital neuralgia Category: Medical Plan Plan Patient is status post repeat left ONB. Patient tolerated procedure well and was discharged home in stable condition with discharge instructions. All questions were answered If today's procedure proves successful, this treatment method will be sustained; otherwise, we will explore other pain management avenues. A follow-up is recommended to monitor her progress and response to this intervention.: Patient was informed and verbally consented to the use of an ambient scribe for clinic note documentation during this visit. Discussion Notes During the visit, I discussed with the patient the possibility of inaccurate nerve targeting in previous month, which may have led to inadequate pain relief. The patient consented to receive another injection on the left side, following an understanding that this could either affirm the treatment's efficacy or prompt reconsideration of management strategies. I explained the benefits of potentially ameliorating occipital neuralgia and the negligible risks associated with today's procedure. Follow-up arrangements were encouraged to monitor the treatment outcome and chart further pain management. Patient Instructions - Follow up with a scheduled appointment to assess the effectiveness of the recent nerve block. - Monitor your pain symptoms and note any changes. - Contact the office if there is no improvement or if you experience adverse effects. - Consider alternative strategies for pain management if this procedure does not work. Coding Level of Care Code Est Pt Level 3 (59562) Diagnoses Occipital neuralgia of left side M54.81
[2024-10-09 11:19] VITALS: BP 116/58; PULSE 73; RESP 16; O2SAT 93
--- OUTSIDE RECORDS SUMMARY | 2024-10-09 12:44 | XMS_ITS ---
[facility] Address [address] [place] [address] Care Team Providers Care Academic Records Specialist Name Role Phone Xavier Segura MD Primary Care Provider Unavail able Black, Mini Unavailable [phone] Allergies Allergen (clinical drug ingredient) Drug/Non Drug [...] 023 Encounters Encounter Location Date Provider Diagnosis [facility] [place] [address] [place] [address] 06/13/2023 Mini Black Plantar fascial fibromatosis M72.2 [...] Notes * Marianne GRANTDOB:02/1950 (73 yo F)Acc No.[id number]:06/13/2023 Progress Note Patient:?Lisseth Grant Provider:?Mini Mejia DPM :1950???Age:73 Y???Sex:Female D ate:06/13/2023 Address:[address] Pcp:Xavier Segura MD Subjective: * Chief Complaints: [...] Mejia DPM Date:?2022 Generated for Angie oswald/Jessy/Erinsmitting on:?10/09/2024 12:44 PM EST History and Physical Notes * HPI (History of Present Illness) Category Sub-Category Detail Notes Category Not es Foot Pain Nature: aching, tenderness Location: Forefoot, B/L Bottom B/L Duration: several years Onset: gradual, denies kathreine martinez Course: recurrent Aggravated: standing, walking, e [...]
--- OUTSIDE RECORDS SUMMARY | 2024-10-09 12:44 | XMS_ITS | Clinical Summary ---
Author Organization [facility] Address [address] [place] [address] Care Team Providers Care Od Grinder Operator Name Role Phone Xavier Segura MD Primary Care Provider [phone] Allergies Active Allergy Reactions Criticality Noted Date [...] age to complete this topic Care Teams Od Grinder Operator Relationship Specialty Start Date End Date Xavier Segura MD [address] [place] [address] PCP - General Seal Extrusion Operator 11/18/17
--- OUTSIDE RECORDS SUMMARY | 2024-10-09 12:44 | XMS_ITS | Clinical Summary ---
Author Organization [facility] Address [address] [place] [address] Phone Care Team Providers Care Well Services Operator Name Role Phone Physician, Pcp Unknown Primary [...] complete this topic Insurance MEDICARE Care Teams Well Services Operator Relationship Specialty Start Date End Date Physician, Pcp Unknown PCP - General 06/11/24
--- OUTSIDE RECORDS SUMMARY | 2024-10-09 12:44 | XMS_ITS | Patient Health Record ---
[facility] Address [address] [place] [address] Care Team Providers Care Funeral Home Director Name Role Phone Xavier Segura MD Primary Care Provider Unavail able Black, Mini Unavailable [phone] Allergies Allergen (clinical drug ingredient) Drug/Non Drug [...] Immunizations Vaccine Route Administration Date Status Comme [facility] COVID-19 Pfizer BioNTech Vaccine Unknown 07/05/2021 [...] primary osteoarthritis of the ankle and/or foot (341979310) Primary osteoarthritis, right ankle and foot (M19.071) Active confirmed Problem Localized, primary osteoarthritis of the ankle and/or foot (352789455) Primary osteoarthritis, left ankle and foot (M19.072) Active confirmed Problem Acquired hammer toe of right foot (4124916683912154 ) Other hammer toe(s) (acquired), right foot (M20.41) Active confirmed Problem Acquired hammer toe of left foot (7158044597765848 ) Other hammer toe(s) (acquired), left foot (M20.42) Active confirmed Problem Acquired deformity of right foot (0124526575725785 0) 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) Active confirmed Problem Acquired deformity of left foot (5727563555934919 4) PlantarFlexion of metatarsal of left foot (M21.6X2) Active confirmed Plan Of Treatment Pending Test Test Name Order Date - Ganglion Cyst Injection/Aspiratio n 04/30/2019 Insurance Providers Payer Name Payer Address Payer Phone Subscriber Number Group Number Insured Name Patient Relationship to Insured Coverage Start Date Coverage End Date Medicare National [employer] [address] [place] [address] [id number] Marianne Monteiro Self - patient is the insured [facility] [address] [place] [address] [phone] [id number] Dzierzan owski, Marianne Self - patient is the insured Medical (General) History Medical History History ICD Code Arthritis Back,Hip,and Knee pain Broken bones Fibromyalgia Headaches/Migraines Reflux ( GERD) Sciatica Chicken pox Transfusions Surgical History Surgery Date(Month/Year) Eyes x4 [phone] Tonsils 1974 Disectomy 1999 Ulna reconstruction- rejected screws 198 Hysterectomy 1986 Lynx sling 2005 back surgery 02/2021
== END 2024-10-09 11:34 | disposition home or self-care (01) ==
PROVIDERS: PCP Pediatrics; Visit Provider Internal Medicine
DX: M54.81 Occipital neuralgia (principal)
CPT/HCPCS: 64405; 64450

== ENCOUNTER → 2024-10-09 11:01 | Outpatient (BNVA) | payer MEDICARE, OTHER, SELFPAY | PROVIDERS: PCP Pediatrics; Visit Provider Internal Medicine | DX: M54.81 Occipital neuralgia (principal) | CPT/HCPCS: 64405; 64450 ==

== ENCOUNTER 2025-01-12 13:18 | Outpatient (AMB) | payer MEDICARE, OTHER, SELFPAY ==
[2025-01-12 13:37] VITALS: BP 122/66
--- NOTE | 2025-01-12 13:37 | A.OFFVIS_ITS ---
Vital Signs 01/12/25 13:37 Height 5 ft 7 in BP 122/66 Blood Pressure Location Rt brachial Position Sitting Intake Visit Reasons: BOTOX Intake Note: Patient presents for botox injection. practice supplied Allergies latex Allergy (Mild, Verified 10/09/24 11:25) Hives adhesive Allergy (Verified 10/09/24 11:25) Rash bee venom protein (honey bee) Allergy (Verified 10/09/24 11:25) Swelling contrast dye Allergy (Mild, Uncoded 10/06/24 12:51) Unknown Medication List - Last Reconciled 01/12/25 by Amy Hernandes MD fluoxetine 20 mg PO DAILY fluticasone propionate 50 mcg/actuation sprays intranasal gabapentin 100 mg PO DAILY gabapentin 300 mg PO BEDTIME galantamine 8 mg PO BID lifitegrast 5% (Xiidra) drps ophthalmic (eye) montelukast 10 mg PO DAILY multivitamin 1 tab PO DAILY omeprazole 20 mg PO DAILY onabotulinumtoxinA (Botox) IM trazodone 150 mg PO BEDTIME zolmitriptan (Zomig) take 1 tab at onset of headache; if no relief, may repeat 1 tab after at least 2 hrs; max = 2 tabs/24 hrs PO HPI Comments Details: 75-year-old female comes for treatment of her migraines and spasmodic torticollis. Side affects including injection site reaction neck pain headaches muscular weakness musculoskeletal stiffness bronchitis allergic reaction myalgia facial paresis hypertension muscle spasms Excedrin were discussed in detail with the patient patient agrees to the procedure. Botulinum toxin type 100 units lot number [id number] expiration 05/2027 x 3 was diluted with 2 cc of normal saline. Muscles injected Bilateral splenius 50 units Bilateral levator 50 units each. Occipitalis 15 units each Temporalis 20 units each. Adebayo semispinalis 15 units each Total used 300 units PFSH Medical History Occipital neuralgia of left side Back pain Scoliosis Arthritis Surgical History H/O left wrist surgery H/O: hysterectomy History of tonsillectomy H/O eye surgery History of back surgery Social History Household Members: Spouse Alcohol intake: current Alcohol intake frequency: does not drink Patient Tobacco Use Status: Never used Tobacco Current occupational status: retired Physical Exam Vital Signs: Last Vital Signs BP 122/66 01/12/25 13:37 Const Orientation/consciousness: patient oriented x3 Neck Other: spasmodic torticollis Restricted range of motion Neuro General: patient oriented x3, gait normal, tone normal, moves all extremities and no focal motor deficits Office Procedures Botulinum toxin Injection 57217 - Migraine Procedure code (CPT) selection complete Office Meds onabotulinumtoxinA 100 unit solution for injection Performing Provider: Amy Hernandes MD Performing Location: [facility] Administered by: Amy Hernandes MD on 01/12/25 14:05 Dose Route Admin Location Dispensed Lot Number Expiration Date [facility] Rag Boiler 300 unit IM 300 units [id number] [employer] 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 She will call with any side effects. Orders: Orders AMB Botulinum toxin Injection Today G24.3 - Spasmodic torticollis Medications: New onabotulinumtoxinA 100 units IM ONCE 3 ea 0RF torticollis G24.3 - Spasmodic torticollis Coding Level of Care Code Est Pt Level 1 (29743) Diagnoses Spasmodic torticollis G24.3 Chronic migraine without aura without status migrainosus, not intractable G43.709 Status migrainosus presence: without status migrainosus Intractability: not intractable CPT Codes Botox Injection - Botox 3: 27921 - Migraine ([id number])
--- OUTSIDE RECORDS SUMMARY | 2025-01-12 15:46 | XMS_ITS | Clinical Summary ---
Author Organization [facility] Address [address] [place] [address] Phone Care Team Providers Care Painter Touch Up Name Role Phone Physician, Pcp Unknown Primary Care Provider Naye vailable Encounters Date Type Department Care Team Description 11/12/2024 11:49 AM EDT - 11/12/2024 11:59 PM EDT Hospital Encounter [facility] MRI [address] [place] [address] Alzheimer's disease, unspecified (CODE) ([facility] V24, [facility] V28) Discharge Disposition: Home or Self Care from [...] Health Maintenance Due Date Last Done Comments Falls Risk Assessment 08/29/2023 Hepatitis C Screening 08/29/2023 Medicare Annual Wellness Visit 08/29/2023 Social Influencers of Health Screening 08/29/2023 RSV Immunization Adult Patients (1 - 1-dose 75+ series) 01/10/2024 COVID-19 Vaccine ( season) 2024 06/10/2024, 06/12/2023, 06/15/2022, Additional history exists Depression Screening 11/06/2025 11/06/2024 Cholesterol Screening (Lipid Panel) 07/02/2027 07/02/2022 Osteoporosis Screening (Bone Density Screening) 03/10/2029 03/10/2019 DTaP,Tdap,and Td Vaccines (3 - Td or Tdap) 03/05/2033 03/05/2023, 05/29/2012 Pneumococcal Vaccine: 50+ Years Completed 01/23/2016, 01/17/2015, 05/29/2012 Zoster Vaccines Completed 05/12/2020, 02/10/2020 Influenza Vaccine Completed 06/10/2024, , 06/08/2022, Additional history exists Breast Cancer Screening Discontinued 08/03/2024, 06/17 HIB Vaccines Aged Out No longer eligi [...] age to complete this topic Meningococcal B Vaccine Aged Out No l onger eligible based on patient's age to complete this topic RSV Immunization Patients Under 20 months Aged Out No longer eligible based on patient's age to complete this topic Varicella Vaccines Aged Out No longer eligible based on patient's age to complete this topic Procedures Procedure Name Priority Date/Time Associated Diagnosis Comments MR BRAIN WO CONTRAST Routine 11/12/2024 1:32 PM EDT Alzheimer's disease, unspecified (CODE) ([facility] V24, [facility] V28) from Last 3 Months Results * MR Brain wo Contrast (11/12/2024 1:32 PM EDT) Anatomical Region Laterality Modality Head and Neck Magnetic Resonan ce 11/12/2024 7:14 PM EDT Impressions 11/12/2024 7:24 PM EDT No acute findings or evidence of amyloid-related imaging abnormalities. Temporoparietal predominant volume loss, similar compared to the prior exam. -------- FINAL REPORT -------- Dictated By: DANIEL SCOTT Dictated Date: 11/12/2024 19:14 ET Assigned Physician: DANIEL SCOTT Reviewed and Electronically Signed By: DANIEL SCOTT Signed Date: 11/12/2024 19:24 ET Workstation ID: [id number] Transcribed By: Self Edit Transcribed Date: 11/12/2024 19:14 ET Narrative 11/12/2024 7:24 PM EDT PROCEDURE: Brain MRI INDICATION: Alzheimer's disease TECHNIQUE: Multiplanar, multisequence MRI of the brain Without contrast. COMPARISON: ??11/05/2023 and 06/11/2024 FINDINGS: No acute infarct, mass effect, or intracranial hemorrhage. Minimal chronic small vessel ischemic change throughout the supratentorial white matter, similar compared to prior. ??Sella and foramen magnum are normal. ?? Right cerebellar developmental venous anomaly noted. ??No abnormal intracranial susceptibility artifact or other amyloid-related imaging abnormalities. Ventricles are unchanged in size and configuration. ??Diffuse cerebral volume loss is unchanged with temporoparietal predominant volume loss. ??No hydrocephalus. Major intracranial arterial flow voids are within normal limits. Sinuses and mastoid air cells are clear. ??Orbits and extracranial soft tissues are normal. ??Calvarium is normal. Procedure Note Daniel Scott MD - 11/12/2024 PROCEDURE: Brain MRI INDICATION: Alzheimer's disease TECHNIQUE: Multiplanar, multisequence MRI of the brain Without contrast. COMPARISON: 11/05/2023 and 06/11/2024 FINDINGS: No acute infarct, mass effect, or intracranial hemorrhage. Minimal chronic small vessel ischemic change throughout the supratentorialwhite matter, similar compared to prior. Sella and foramen magnum arenormal. Right cerebellar developmental venous anomaly noted. No abnormalintracranial susceptibility artifact or other amyloid-related imagingabnormalities. Ventricles are unchanged in size and configuration. Diffuse cerebralvolume loss is unchanged with temporoparietal predominant volume loss. Nohydrocephalus. Major intracranial arterial flow voids are within normal limits. Sinuses and mastoid air cells are clear. Orbits and extracranial softtissues are normal. Calvarium is normal. IMPRESSION: No acute findings or evidence of amyloid-related imaging abnormalities. Temporoparietal predominant volume loss, similar compared to the priorexam. -------- FINAL REPORT -------- Dictated By: DANIEL SCOTT Dictated Date: 11/12/2024 19:14 ET Assigned Physician: DANIEL SCOTT Reviewed and Electronically Signed By: DANIEL SCOTT Signed Date: 11/12/2024 19:24 ET Workstation ID: [id number] Transcribed By: Self Edit Transcribed Date: 11/12/2024 19:14 ET Tomasa Santillan APPRENTICE PLANT ATTENDANT IMG MRI PROCEDURES Final Result from Last 3 Months Insurance MEDICARE [facility] Care Teams Painter Touch Up Relationship Specialty Start Date End Date Physician, Pcp Unknown PCP - General 06/11/24
== END 2025-01-12 13:58 | disposition home or self-care (01) ==
LOC: HO.HSMS 13:19
PROVIDERS: PCP Pediatrics; Visit Provider Psychiatry & Neurology Neurology
DX: G43.709 Chronic migraine without aura, not intractable, without status migrainosus (principal); G24.3 Spasmodic torticollis
CPT/HCPCS: 64615

== ENCOUNTER → 2025-01-12 13:18 | Outpatient (BNVA) | payer MEDICARE, OTHER, SELFPAY | PROVIDERS: PCP Pediatrics; Visit Provider Psychiatry & Neurology Neurology | DX: G24.3 Spasmodic torticollis (principal); G43.709 Chronic migraine without aura, not intractable, without status migrainosus | CPT/HCPCS: 64615; 64616; 99211; J0585 ==

== ENCOUNTER 2025-04-13 14:46 | Outpatient (AMB) | payer MEDICARE, OTHER, SELFPAY ==
--- OUTSIDE RECORDS SUMMARY | 2015-12-20 | XMS_ITS | Encounter Summary ---
Author Organization [facility] Address [address] [place] [address] Drive [address] [place] [address] Phone Care Team Providers Care Caseworker Name Role Phone Xavier Segura MD Primary Care Provider [phone] Reason for Visit * MRI/CAT Scan - Closed Specialty Diagnoses / Procedures Referred By Contac t Referred To Contact Procedures MRI Spine (Bone) Outside (No Interpretation) Az Boucher MD [address] [place] [address] Phone: tel: fax: [email or web address] Referral ID Status Reason Start Date Expiration Date Visits Re quested Visits Authorized [id number] Closed 07/17/2016 07/17/2017 1 1 Encounter Details Date Type Department Care Team (Late st Contact Info) Description 12/20/2015 Hospital Encounter [facility] [address] [place] [address] Az Boucher MD [address] [place] [address] [email or web address] Social History Tobacco Use Types Packs/Day Years Used Date Smoking Tobacco: Never Passive Smoke Exposure: Past Smokeless Tobacco: Never Alcohol Use Standard Drinks/Week Comments Never 0 (1 standard drink = 0.6 oz pur e alcohol) Child or Family Care Answer Date Record ed Do you have problems with on e of the following making it difficult for you to work, study, or receive health care? I choose not to answer 06/23/2021 Education Answer Date Recorded Are you interested in more education? Not on toni e 06/25/2023 Are you concerned about learning? Not on file 06/25/2023 No 06/25/2023 No 06/25/2023 Food Answer Date Recorded Within the past 6 months we worried whether our food would run out before we got money to buy more. Never True 06/23/2021 Within the past 6 months the food we bought just didn't last and we didn't have enough money to get more. Never True Residential Stability Answer Date Recor ded What is your housing situation today? I have rosangela ramos 06/23/2021 How many times have you move d in the past 12 months? Zero (I did not move) 06/23/2021 Paying for Meds Answer Date Recorded Do you have trouble paying for medicines? No 06/23/2021 Paying Utility Bills Answer Date Record ed Do you have trouble paying your heating or elect ricity bill? No 06/23/2021 Transportation Answer Date Recorded Has the lack of transportati on kept you from medical appointments or from getting medications? No 06/23/2021 Unemployment Answer Date Recorded Are you currently unemployed or working on a part-time or temporary basis, and looking for work? No 06/23/2021 Digital Access Answer Date Recorded No 12/29/2022 No 12/29/2022 Reliable internet access at home? Not on file 12/29/2022 Device with a working camera? Not on file Intimate Partner Violence Answer Date R ecorded Are you denied basic needs s uch as food, clothing, or medical care? No 01/25/2025 In the past 12 months have y ou been in a relationship with a person who hurts, threatens, or tries to control you? No 01/25/2025 Are you denied basic needs s uch as food, clothing, or medical care? No 01/25/2025 In the past 12 months have y ou been in a relationship with a person who hurts, threatens, or tries to control you? No 01/25/2025 Comments No Sex and Gender Information Value Date Recorded Sex Assigned at Female 02/05/2020 10:29 AM EDT Legal Sex Female 6:15 PM EST Gender Identity Female 02/05/2020 10:29 AM EDT Sexual Orientation Not on file Occupation Industry Job Start Date Job End Date retired Not on file Not on file Not on file documented as of this encounter Functional Status * Calculated C-SSRS Risk Score (Lifetime/Recent) Answer Date of Assessment Author No Risk Indicated 01/25/2025 3:09 PM EDT Liz Whitaker RN * Dawson Suicide Severity Rating Scale (Screener/Recent Self-Report) Question Answer Date of Assessment Author 1. Wish to be (Past 1 Month) No 025 3:09 PM EDT Liz Whitaker RN 2. Non-Specific Active Suici hieu Thoughts (Past 1 Month) No 01/25/2025 3:09 PM EDT Liz Whitaker RN 6. Suicidal Behavior (Lifetime) No 3:09 PM EDT Liz Whitaker RN documented as of this encounter Plan of Treatment Upcoming Encounters Date Type Department Care Team (Late st Contact Info) Description 05/20/2025 2:30 PM EDT Office Visit [facility] [address] [place] [address] Mik Finley DO [address] [place] [phone] [email or web address] 05/26/2025 3:30 PM EDT Appointment [facility], Donald [address] [place] [address], 2nd [place] [address] Aida Terrell MD, MSc [address] [place] [address] 06/22/2025 10:45 AM EST Office Visit [facility] Pulmonary, Allergy and Critical Care Medicine [address] [facility] [place] [address] Pranav Zelaya MD [address] [place] [address] 2[address] [place] [address] [email or web address] 08/09/2025 10:30 AM EST Telemedicine [facility] [place] of Neurology [address] [place] [address], [address] [place] [address], [address] [place] [address] Aida Terrell MD, MSc [address] [place] [address] [place] [phone] [email or web address] documented as of this encounter Procedures Procedure Name Priority Date/Time Associated Diagnosis Comments MRI SPINE MUSCULOSKELETAL FOCUS OUTSIDE (NO INTERPRETATION) Routine 12/20/2015 12:00 AM EDT documented in this encounter Results * MRI Spine (Bone) Outside (No Interpretation) (12/20/2015 12:00 AM EDT) Narrative [facility] INTERFAC[facility] - 07/17/2016 1:18 PM EST This study is for PACS storage only and not for interpretation. Az Boucher MD IMG OUTSIDE IMAGING W/ OUT INTERPRETATION Final Result [facility] documented in this encounter Visit Diagnoses Not on filedocumented in this encounter Additional Health Concerns Infection Onset Date Last Indicated Resolved Time CDiff-Risk 07/31/2024 07/31/2024 08/01/2024 1:09 PM EST CDiff-Risk 08/01/2024 08/01/2024 08/01/2024 2:41 PM EST documented as of this encounter Care Teams Caseworker Relationship Specialty Start Date End Date Xavier Segura MD [address] [place] [address], [address] [place], [place] [id number] [email or web address] PCP - General Family Medicine 02/09/15 documented as of this encounter Additional Source Comments The information contained in this document represents components of the legal health record. It is not the complete legal health record.[facility]
--- OUTSIDE RECORDS SUMMARY | 2016-03-16 | XMS_ITS | Encounter Summary ---
Author Organization [facility] Address [address] [place] [address] Drive [address] [place] [address] Phone Care Team Providers Care Campaign Advisor Name Role Phone Xavier Segura MD Primary Care Provider [phone] Encounter Details Date Type Department Care Team (Late st Contact Info) Description 03/16/2016 Hospital Encounter [facility] [address] [place] [address] Az Boucher MD [address] [place] [address] [email or web address] Social History Tobacco Use Types Packs/Day Years [...] 3:09 PM EDT Liz Whitaker RN * [place] Suicide Severity Rating Scale (Screener/Recent Self-Report) Question [...] Upcoming Encounters Date Type Department Care Team ([facility] st Contact Info) Description 05/20/2025 2:30 PM EDT Office Visit [facility] [address] [place] [address] Mik Finley DO [address] [place] [address] [email or web address] 05/26/2025 3:30 PM EDT Appointment [facility], Donald [address] [place] [address] Aida Terrell MD, MSc [address] [place] [address] 06/22/2025 10:45 AM EST Office Visit [facility] Pulmonary, Allergy and Critical Care Medicine [address] [place] [address] Pranav Zelaya MD [address] [place] [address] 08/09/2025 10:30 AM EST Telemedicine [facility] Department of Neurology [address] [place] [address], [address] [place] [address], [address] [address] Aida Terrell MD, MSc [address] [place] [phone] [email or web address] documented as of this encounter Procedures Procedure Name Priority Date/Time Associated Diagnosis Comments XR PELVIS OUTSIDE (NO INTERPRETATION) Routine 03/16/2016 12:00 AM EDT documented in this encounter Results * XR Pelvis Outside (No Interpretation) (03/16/2016 12:00 AM EDT) Narrative [facility] IMG INTERFACES - 07/17/2016 1:30 PM EST This study is for PACS storage only and not for interpretation. us Az Boucher MD IMG OUTSIDE IMAGING W/ OUT INTERPRETATION Final Result [facility] IMG INTERFACES documented in this encounter Visit Diagnoses Not on filedocumented in this encounter Additional Health Concerns Infection Onset Date Last Indicated Resolved Time CDiff-Risk 07/31/2024 07/31/2024 08/01/2024 1:09 PM EST CDiff-Risk 08/01/2024 08/01/2024 08/01/2024 2:41 PM EST documented as of this encounter Care Teams Campaign Advisor Relationship Specialty Start Date End Date Xavier Segura MD [address] [place] [address], [address] [place] [address] [email or web address] PCP - General Family Medicine 02/09/15 documented as of this encounter Additional Source Comments The information contained in this document represents components of the legal health record. It is not the complete legal health record.[facility]
--- OUTSIDE RECORDS SUMMARY | 2016-03-16 00:15 | XMS_ITS | Encounter Summary ---
Author Organization [facility] Address [address] [place] [address] Phone Care Team Providers Care Motorcyles Final Inspector Name Role Phone Xavier Segura MD Primary Care Provider [phone] Encounter Details Date Type Department Care Team (Late st Contact Info) Description 03/16/2016 12:15 AM EDT Hospital Encounter [facility] [address] [place] [address] Az Boucher MD [address] [place] [address] [email or web address] Social History Tobacco Use Types [...] 3:09 PM EDT Liz Whitaker RN * [place] Suicide Severity Rating Scale (Screener/Recent Self-Report) Question [...] Description 05/20/2025 2:30 PM EDT Office Visit [facility] [address] [place] [address] Mik Finley DO [address] [place] [address] [email or web address] 05/26/2025 3:30 PM EDT Appointment [facility] Imaging, Donald [address] [place] [address], [address] [place] [address] Aida Terrell MD, MSc [address] [place] [address] 06/22/2025 10:45 AM EST Office Visit [facility] Pulmonary, Allergy and Critical Care Medicine [address] [place] [address] Pranav Zelaya MD [address] [place] [address] 08/09/2025 10:30 AM EST Telemedicine [facility] Department of Neurology [address] [place] [address], [address] [place] [address], [address] [place] [address] Aida Terrell MD, MSc [address] [place] [address] [email or web address] documented as of this encounter Procedures Procedure Name Priority Date/Time Associated Diagnosis Comments XR PELVIS OUTSIDE (NO INTERPRETATION) Routine 03/16/2016 12:15 AM EDT documented in this encounter Results * XR Pelvis Outside (No Interpretation) (03/16/2016 12:15 AM EDT) Narrative [facility] IMG INTERFACES - 07/17/2016 1:30 PM EST This study is for PACS storage only and not for interpretation. us Az Boucher MD IMG OUTSIDE IMAGING W/ OUT INTERPRETATION Final Result [facility] IMG INTERFACES documented in this encounter Visit Diagnoses Not on filedocumented in this encounter Additional Health Concerns Infection Onset Date Last Indicated Resolved Time CDiff-Risk 07/31/2024 07/31/2024 08/01/2024 1:09 PM EST CDiff-Risk 08/01/2024 08/01/2024 08/01/2024 2:41 PM EST documented as of this encounter Care Teams Motorcyles Final Inspector Relationship Specialty Start Date End Date Xavier Segura MD [address] [place] [address], [address] [address] [email or web address] PCP - General Family Medicine 02/09/15 documented as of this encounter Additional Source Comments The information contained in this document represents components of the legal health record. It is not the complete legal health record.[facility]
--- NOTE | 2025-04-13 14:47 | MHC.OFFVIS ---
Vital Signs 04/13/25 14:48 Height 5 ft 7 in BP 122/64 Blood Pressure Location Rt brachial Position Sitting Pulse 75 Pulse Source Pulse Oximeter Pulse Oximetry (%) 95 Oxygen Delivery Method Room Air Intake Visit Reasons: Botox Intake Note: Botox Heating Element Repairer Required: No Accompanied by: Spouse Allergies latex Allergy (Mild, Verified 04/13/25 14:48) Hives adhesive Allergy (Verified 04/13/25 14:48) Rash bee venom protein (honey bee) Allergy (Verified 04/13/25 14:48) Swelling contrast dye Allergy (Mild, Uncoded 10/06/24 12:51) Unknown Medication List - Last Reconciled 04/13/25 by Amy Hernandes MD celecoxib 200 mg PO DAILY PRN fluoxetine 20 mg PO DAILY fluticasone propionate 50 mcg/actuation sprays intranasal gabapentin 100 mg PO DAILY gabapentin 300 mg PO BEDTIME galantamine 8 mg PO BID lifitegrast 5% (Xiidra) drps ophthalmic (eye) minoxidil 1.25 mg PO DAILY montelukast 10 mg PO DAILY multivitamin 1 tab PO DAILY omeprazole 20 mg PO DAILY onabotulinumtoxinA (Botox) IM trazodone 150 mg PO BEDTIME zolmitriptan (Zomig) take 1 tab at onset of headache; if no relief, may repeat 1 tab after at least 2 hrs; max = 2 tabs/24 hrs PO HPI Comments Details: 75-year-old female comes for treatment of her migraines and spasmodic torticollis. Side affects including injection site reaction neck pain headaches muscular weakness musculoskeletal stiffness bronchitis allergic reaction myalgia facial paresis hypertension muscle spasms Excedrin were discussed in detail with the patient patient agrees to the procedure. Botulinum toxin type 100 units lot number [id number] expiration 06/2027 x 3 was diluted with 2 cc of normal saline. Muscles injected Bilateral splenius 50 units Bilateral levator 50 units each. Occipitalis 15 units each Temporalis 20 units each. Adebayo semispinalis 15 units each Total used 300 units PFSH Medical History Occipital neuralgia of left side Back pain Scoliosis Arthritis Surgical History H/O left wrist surgery H/O: hysterectomy History of tonsillectomy H/O eye surgery History of back surgery Social History Household Members: Spouse Alcohol intake: current Alcohol intake frequency: does not drink Patient Tobacco Use Status: Never used Tobacco Current occupational status: retired Physical Exam Vital Signs: Last Vital Signs Pulse 75 04/13/25 14:48 BP 122/64 04/13/25 14:48 Pulse Ox 95 04/13/25 14:48 Oxygen Delivery Method Room Air 04/13/25 14:48 Const Orientation/consciousness: patient oriented x3 Neck Other: spasmodic torticollis Restricted range of motion Neuro General: patient oriented x3, gait normal, tone normal, moves all extremities and no focal motor deficits Office Procedures Botulinum toxin Injection 22307 - Dystonia Procedure code (CPT) selection complete Office Meds onabotulinumtoxinA 100 unit solution for injection Performing Provider: Amy Hernandes MD Performing Location: [facility] Administered by: Amy Hernandes MD on 04/13/25 15:26 Dose Route Admin Location Dispensed Lot Number Expiration Date [facility] School Adjustment Counselor 300 unit IM 300 units [id number] [employer] Total Dispensed Waste 300 units 0 % Comments: see HPI Assessment & Plan Assessment & Plan (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 She will call with any side effects. Orders: Orders AMB Botulinum toxin Injection Today G24.3 - Spasmodic torticollis Coding Level of Care Code Est Pt Level 1 (17256) Diagnoses Spasmodic torticollis G24.3 Chronic migraine without aura without status migrainosus, not intractable G43.709 Status migrainosus presence: without status migrainosus Intractability: not intractable CPT Codes Botox Injection - Botox 4: 79545 - Dystonia ([id number])
[2025-04-13 14:48] VITALS: BP 122/64; PULSE 75; O2SAT 95
--- OUTSIDE RECORDS SUMMARY | 2025-04-13 17:14 | XMS_ITS | Encounter Summary ---
Author Organization [facility] Address [address] [place] [address] Phone Care Team Providers Care Implementation Project Coordinator Name Role Phone Xavier Segura MD Primary Care Provider [phone] Xavier Segura MD Unavailable [phone] Mik Finley DO Unavailable [phone] Reason for Visit * Reason Comments Medication Refill Encounter Details Date Type Department Care Team (Late st Contact Info) Description 01/17/2025 Refill [facility] Geriatrics [address] [place] [address] Mik Finley DO [address] [place] [address] [email or web address] Medication Refill Social History Tobacco Use Types Packs/Day Years [...] uch as food, clothing, or medical care? Deferred 08/13/2024 In the past 12 months have y ou been in a relationship with a person who hurts, threatens, or tries to control you? Deferred 08/13/2024 Are you denied basic needs s uch as food, clothing, or medical care? Deferred 08/13/2024 In the past 12 months have y ou been in a relationship with a person who hurts, threatens, or tries to control you? Deferred 08/13/2024 Comments No Sex and Gender Information Value Date Recorded Sex Assigned at Female 02/05/2020 10:29 AM EDT Legal Sex Female 6:15 PM EST Gender Identity Female 02/05/2020 10:29 AM EDT Sexual Orientation Not on file Occupation Industry Job Start Date Job End Date retired Not on file Not on file Not on file documented as of this encounter Progress Notes * Ministerio Doe RN - 01/18/2025 9:18 AM EDT duplicate documented in this encounter Plan of Treatment Upcoming Encounters Date Type Department Care Team (Late st Contact Info) Description 05/20/2025 2:30 PM EDT Office Visit [facility] Geriatrics [address] [place] [address] Mik Finley DO [address] [place] [address] [email or web address] 05/26/2025 3:30 PM EDT Appointment [facility], Donald [address] [place] [address], [facility] [place] [address] Aida Terrell MD, MSc [address] [place] [address] 06/22/2025 10:45 AM EST Office Visit [facility], Allergy and Critical Care Medicine [address] [place] [address] [place] [address] Pranav Zelaya MD [address] [place] [address] 08/09/2025 10:30 AM EST Telemedicine [facility] Department of Neurology [address] [place] [address], [address] [place] [address], [address] [place] [address] Aida Terrell MD, MSc [address] [place] [address] [email or web address] documented as of this encounter Visit Diagnoses Diagnosis Mixed dementia documented in this encounter Additional Health Concerns Assessment Noted Time PHQ-9 Depression Total Score: 0 11/07/19 11:02 AM EDT PHQ-2 Depression Total Score: 0 11/07/19 11:02 AM EDT documented as of this encounter Care Teams Implementation Project Coordinator Relationship Specialty Start Date End Date Xavier Segura MD [address] [facility] [place] [address] [email or web address] PCP - General Family Medicine 02/09/15 Xavier Segura MD [address] [facility] [place] [address] Insurance Assigned Provider 11/09/23 Mik Finley DO [address] [place] [address] Geriatric Medicine 10/09/24 documented as of this encounter Additional Source Comments The information contained in this document represents components of the legal health record. It is not the complete legal health record.[facility]
--- OUTSIDE RECORDS SUMMARY | 2025-04-13 17:14 | XMS_ITS | Encounter Summary ---
Author Organization [facility] Address [address] [place] [address] [place] [address] Phone Care Team Providers Care Gis Software Engineer Name Role Phone Xavier Segura MD Primary Care Provider [phone] Xavier Segura MD Unavailable [phone] Sammi Mojica OT Unavailable [phone] Nafisa Avery MD Unavailable [phone] Mik Finley DO Unavailable [phone] Encounter Details Date Type Department Care Team (Late st Contact Info) Description 12/10/2017 Procedure Pass [facility] - MRI [address] [facility], [address]th [place] [address] Social History Tobacco Use Types Packs/Day Years Used Date Smoking Tobacco: Never Smokeless Tobacco: Never Alcohol Use Standard Drinks/Week Comments No 0 (1 standard drink = 0.6 oz pur e alcohol) Comments No Sex and Gender Information Value Date Recorded Sex Assigned at Female 02/05/2020 10:29 AM EDT Legal Sex Female 6:15 PM EST Gender Identity Female 02/05/2020 10:29 AM EDT Sexual Orientation Not on file Occupation Industry Job Start Date Job End Date retired Not on file Not on file Not on file documented as of this encounter Plan of Treatment Upcoming Encounters Date Type Department Care Team (Late st Contact Info) Description 05/20/2025 2:30 PM EDT Office Visit [facility] Geriatrics [address] [place] [address] Mik Finley DO [address] [place] [address] [email or web address] 05/26/2025 3:30 PM EDT Appointment [facility], Donald [address] [place] [address], [address] [place] [address] Aida Terrell MD, MSc [address] [place] [address] [email or web address] 06/22/2025 10:45 AM EST Office Visit [facility] Pulmonary, Allergy and Critical Care Medicine [address] [place] [address] Pranav Zelaya MD [address] [place] [address] [email or web address] 08/09/2025 10:30 AM EST Telemedicine [facility] Department of Neurology [address] [place] [address], [address] [address] Aida Terrell MD, MSc [address] [place] [address] [email or web address] documented as of this encounter Visit Diagnoses Not on filedocumented in this encounter Additional Health Concerns Infection Onset Date Last Indicated Resolved Time CDiff-Risk 07/31/2024 07/31/2024 08/01/2024 1:09 PM EST CDiff-Risk 08/01/2024 08/01/2024 08/01/2024 2:41 PM EST Assessment Noted Time PHQ-2 Depression Total Score: 0 01/28/20 1:06 PM EDT documented as of this encounter Care Teams Gis Software Engineer Relationship Specialty Start Date End Date Xavier Segura MD [address] [facility] [place] [address] [email or web address] PCP - General Family Medicine 02/09/15 Xavier Segura MD [address] [facility] [place] [address] [email or web address] Insurance Assigned Provider 11/09/23 Sammi Mojica, OT [address] [place] [address] [email or web address] Transitions Wire Drawer[employer]able S[employer] Therapy 03/05/23 Nafisa Avery MD [address] [place] [address] [email or web address] Geriatric Medicine 05/21/23 10/08/24 Mik Finley DO [address] [place] [address] [email or web address] Geriatric Medicine 10/09/24 documented as of this encounter Additional Source Comments The information contained in this document represents components of the legal health record. It is not the complete legal health record.[facility]
--- OUTSIDE RECORDS SUMMARY | 2025-04-13 17:14 | XMS_ITS | Clinical Summary ---
Author Organization [facility] Address [address] [place] [address] Phone Care Team Providers Care Loading Inspector Name Role Phone Physician, Pcp Unknown Primary [...] Patients (1 - 1-dose 75+ series) 01/10/2024 Depression Screening 08/05/2024 COVID-19 Vaccine ( season) 2025 06/10/2024, 06/12/2023, 06/15/2022, Additional history exists Influenza Vaccine (#1) 2025 , 06/25/2023, 06/08/2022, Additional history exists Cholesterol Screening (Lipid Panel) 07/02/2027 07/02/2022 Osteoporosis Screening (Bone Density Screening) 03/10/2029 03/10/2019 DTaP,Tdap,and Td Vaccines (3 - Td or Tdap) 03/05/2033 03/05/2023, 05/29/2012 Pneumococcal Vaccine: 50+ Years Completed 01/23/2016, 01/17/2015, 05/29/2012 Zoster Vaccines Completed 05/12/2020, 02/10/2020 Breast Cancer Screening Discontinued 08/03/2024, 06/17 HIB [...] age to complete this topic Insurance MEDICARE [facility] Care Teams Loading Inspector Relationship Specialty Start Date End Date Physician, Pcp Unknown PCP - General 06/11/24
--- OUTSIDE RECORDS SUMMARY | 2025-04-13 17:14 | XMS_ITS | Clinical Summary ---
Author Organization [facility] Address [address] [place] [address] [place] [id number] Phone Care Team Providers Care Strategy Intern Name Role Phone Xavier Segura MD Primary Care Provider [phone] Xavier Segura MD Unavailable [phone] TusharMik Darvin DO Unavailable [phone] Allergies Active Allergy Reactions Criticality Noted Date Comments Adhesive Rash Low 04/18/2020 Amitriptyline 01/27/2018 Tired, not sleeping, increased urination Diflucan (Fluconazole) Hives,Itching 02/20/2016 Fluconazole Hives,Itching Low 02/20/2016 Iodinated Contrast Media Hives High 05/03/2000 Hives, itching & swelling Iodine Itching,Unknown 04/16/2024 Latex Rash Low 06/23/2021 Metrizamide Hives 05/03/2000 Penicillins Itching,Dizziness,A nxiety,Unknown Low 08/04/2019 Given for dental work. Itching for several days. Medications melatonin 3 mg Tab Take 3 mg by mouth. Active multivitamins capsule Take 1 capsule by mouth daily. Active b complex vitamins capsule Take 1 capsule by mouth daily. Active estradioL (ESTRACE) 0.01 % (0.1 mg/gram) vaginal creamIndications:u ses once every three [address] 2 g vaginally 3 (three) times a week. Indications: uses once every three days 42.5 g 1 05/09/20 22 Active loratadine (CLARITIN) 10 mg tablet Take 1 tablet by mouth daily. Active XIIDRA 5 % opthalmic solution 08/27/19 23 Active traZODone (DESYREL) 150 MG tablet Take 150 mg by mouth nightly at bedtime. Active gabapentin (NEURONTIN) 100 MG capsule Take 1 capsule (100 mg total) by mouth every morning. 90 capsule 1 08/12/19 25 Active CALCIUM ORAL Take by mouth. Ac tive omega-3s/dha/epa/f mary carmen oil (OMEGA 3 ORAL) Take by mouth. Activ e ubidecarenone (COENZYME Q10 ORAL) Take by mouth. Activ e minoxidiL (LONITEN) 2.5 MG tablet Take 2.5 mg by mouth. 10/09/19 25 Active clobetasol (TEMOVATE) 0.05 % ointment APPLY THIN LAYER TWICE A DAY TO SORE AREA OF SKIN ON EAR 12/04/19 25 Active galantamine (RAZADYNE ER) 24 MG 24 hr capsuleIndications :Mixed dementia TAKE 1 CAPSULE DAILY WITH BREAKFAST 90 capsule 1 01/19/20 25 Active omeprazole (PRILOSEC) 20 MG capsuleIndications :Gastroesophageal reflux disease without esophagitis TAKE 1 CAPSULE DAILY 90 capsule 3 01/21/20 25 Active celecoxib (CELEBREX) 200 MG capsuleIndications :Primary osteoarthritis involving multiple joints TAKE 1 CAPSULE DAILY NEEDED FOR PAIN, ARTHRITIS 90 capsule 1 01/21/20 25 Active montelukast (SINGULAIR) 10 mg tabletIndications: Allergic rhinitis TAKE 1 TABLET NIGHTLY AT BEDTIME 90 tablet 3 01/21/20 25 Active gabapentin (NEURONTIN) 300 MG capsuleIndications :Fibromyalgia TAKE 1 CAPSULE EVERY EVENING 90 capsule 01/21/20 25 Active ZOLMitriptan (ZOMIG) 5 MG tablet TAKE 1/2 OR 1 TABLET BY MOUTH AT THE START OF THE HEADACHE, IF INCOMPLETE RELIEF CAN REPEAT 1 DOSE IN 2 HOURS 9 tablet 3 02/09/20 25 Active mupirocin (BACTROBAN) 2 % ointment APPLY 1-2 TIMES DAILY TO OPEN SKIN 12/14/19 25 Active FLUoxetine (PROZAC) 20 MG capsuleIndications :Recurrent major depressive disorder, in full remission Take 1 capsule (20 mg total) by mouth daily. 90 capsule 3 03/17/20 25 Active carisoprodol (SOMA) 350 MG tablet Take 1 tablet (350 mg total) by mouth daily. 90 tablet 03/19/20 25 Active FLUoxetine (PROZAC) 20 MG capsuleIndications :Recurrent major depressive disorder, in full remission take 1 capsule by mouth every day 90 capsule 3 09/09/19 24 025 Discontin ued(Reord er) carisoprodol (SOMA) 350 MG tablet Take 350 mg by mouth. 025 Discontin ued(Reord er) Active Problems Problem Noted Date Diagnosed Date Word finding difficulty 05/05/2024 Encounter for medication review 05/05/2024 Mixed dementia 10/24/2023 Polypharmacy 10/24/2023 Advance care planning 10/24/2023 Encounter for support to caregiver 10/24/2023 Small vessel disease 03/15/2023 Syncope 03/05/2023 Assessment & Plan (03/05/2023 5:18 AM EDT): Suspect infectious (complaining of dysuria) vs cardiac based on pt's description of syncopal event (light switch being turned off) and no post ictal period or loss of bladder function. Initially pt did have tremor on exam raising concern for movement disorder/seizure. Repeat neuro exam is normal. Plan Admit to tele Continuous EEG monitoring TTE Per neuro recommendation EEG and MRI- Formal consult note not currently available. UA, lactate, prolactin Dysuria 03/05/2023 Assessment & Plan (03/05/2023 5:16 AM EDT): Sx for over 2 weeks. Stats used over the counter monostat weeks ago but increasing urinary frequency. Denies abnormal discharge. UA pending. Mild cognitive impairment 03/05/2023 Overview (05/19/2023): Likely Alzheimer's based on neuropsych evaluation Assessment & Plan (05/19/2023 5:45 PM EDT): Trial of galantamine, SEs discussed. WIll titrate to effect. Reassess at follow up. Assessment & Plan (03/05/2023 5:17 AM EDT): Awaiting neuropsych testing by PCP. Currently A&Ox4 able to make her own medical decisions. Leukopenia 06/25/2021 Assessment & Plan (08/09/2022 8:05 AM EST): Stable labs, continue to monitor. Assessment & Plan (06/25/2021 7:39 PM EST): Slightly low white blood cell count, exam as nonfocal. Could be medication effect versus early MDS. Reassess in 6 months. Idiopathic peripheral neuropathy 04/20/2021 Inflammatory spondylopathy of cervical region Assessment & Plan (08/08/2022 7:39 PM EST): Signficant impact on pain, managed with botox injections with neurology due to triggering cervicogenic headaches. Assessment & Plan (06/23/2021 3:28 PM EST): Discussing with orthopedic spine surgeon about options for neck pain. She will have followup for her neck and lower back. Spondylosis of cervical bev on without myelopathy or radiculopathy 04/25/2018 Overview (03/27/2020): First seen at [facility] Neurology 12/10/17 Dr. Looney Onset Unclear, fell at age 35, LOC, injured right arm, S/P six surgeries Imaging See below Tests EMG - 04/02/18 - chronic left C67 radiculpathy Medication Trials See below Outside Record Review [facility] notes from 11/13/12 - 08/15/17. 11/13/2012-seen for follow-up of neck and low back pain. Physical therapy for the low back was helpful. PT also help the neck pain but she had some residual pain. 02/10/2013- left neck pain that radiated up to the left jaw. 02/20/2013-seen for trigger point injections. 02/27/2013-seen for trigger point injections 03/06/2013 seen for trigger point injections in the right upper trapezius and levator scapula and left upper trapezius. 04/03/2013- she was doing well status post treatment for cervical spondylosis and myofascial pain 06/18/2013- felt to have bilateral C3-4 neuroforaminal narrowing and C4 radiculopathy. He was getting good improvement with the transforaminal epidural steroids. 07/23/2013- apical radiculitis improved with bilateral epidural steroid November 25, 2013 seem to get cervical facet injections. 01/06/2014 therefore cervical facet injections 11/04/2014-prepared for facet injections the next visit 12/07/2014 radiofrequency ablation was discussed. But a medial branch block test was done prior. 02/10/2015- this was status post radiofrequency ablation, pain relief was obtained. 06/03/2015 pain was returning. She gotten 4 months of relief from the previous ablation repeat was planned in several months. 08/08/2015 good relief to the previous ablation procedure 11/04/2015- she was reporting more low back pain. Zickel therapy was prescribed 12/08/2015-not much improvement with physical therapy 01/10/2016- to have lumbar radiculopathy at L5 epidural steroids were suggested 02/21/2016- some improvement with bilateral transforaminal epidural steroids 04/02/2016 in for bilateral hip pain and and given bilateral greater trochanteric corticosteroid injections 04/17/2016- seen for hip and neck pain 07/18/2016 seen after radiofrequency ablations bilaterally with her headaches improved 12/11/2016- seen for hip pain and headaches. Headaches were felt to be cervicogenic. 05/28/2017 seen for hip pain and headaches radiofrequency ablation was suggested 08/15/2017 seen for hip pain and headaches patient reported her throbbing headaches for a month after the ablations. At that visit her headaches were better. PT notes from 02/18/13 - 01/03/16. Procedure notes from 04/27/10 - 01/03/16 Cervical spine epidurals and facet injections 04/27/10-spine epidurals 04/19/11-spinal epidural 03/23/12-spinal epidural July 09, 2013 -spinal epidural 12/21/2013-facet injections 11/17/2014-facet injections 12/30/2014- bilateral C3/C4 medial branch block 01/13/2015 cervical 3 and 4 medial branch radiofrequency ablation 01/31/2015 left cervical 3/4 medial branch radiofrequency ablation 07/04/2015- left cervical 3 4 medial branch radiofrequency ablation 07/14/2015 left cervical 3, 4 medial branch radiofrequency ablation 01/27/2016 left L5-S1 and right L3-4 epidural injections 06/05/2016 left cervical 3, 4 medial branch radiofrequency ablation 07/04/2016 right cervical 3, 4 medial branch radiofrequency ablation 08/09/2016 left L4-5, L5-S1 epidural injections 01/17/2017 left L4-5, L5-S1 epidural injections 06/20/2017 right cervical 3 4 medial branch radiofrequency ablation 07/11/2017 left cervical 3 4 medial branch radiofrequency ablation Imaging of outside films. 03/15/2006 - X-rays - films reviewed - degenerative changes at multiple levels. Foraminal stenosis - left C67, left C23. 04/29/88 C-spine MRI - films reviewed - disc complex at C56, not touching the cord. 04/23/2006 - Cspine MRI - films reviewed - disc complex at C56, not touching cord, NF stenosis at C67 on the left Radiology reports only lumbosacral x-rays 06/06/2012 degenerative changes most marked at L3-4 C-spine MRI 12/20/2013 no acute traumatic injury. Mild retrolisthesis of C5 on C6 neuroforaminal narrowing at C3-4 on the right and moderate C4-5 C6-7 on the left and C5-6 on the right. MRI of the lumbar spine on 12/20/2015-levoscoliosis and multilevel discogenic degenerative changes Imaging here at [facility] New MRI C-spine at [facility] -01/28/18- images reviewed - mulitple level deg disease, C34 - R NF stenosis, C56 midline stenosis, C67 left NF stenosis. MRI brain - 01/27/18 - images reviewed - unremarkable. Assessment & Plan (07/23/2018 2:32 PM EST): Continued neck pain most in bilateral suboccipital areas and occipital area. She tries different pillows. She is unsure if the suboccipital pain improves with the Zomig or not. Impression is that of cervical spondylosis that is chronic in nature with no radicular symptoms or signs in the upper extremities. It is unclear if it is contributing to the headaches are not. Plan Weekly massage to the head and neck area Might try less traction than previously Assessment & Plan (04/25/2018 5:54 PM EDT): History of chronic neck pain with spondylosis on MRI. Family to bring in 2013 MRI C-spine to compare to new one. Cervical arthritis 11/20/2017 Lumbar radiculopathy 11/20/2017 Overview (02/24/2021): Added automatically from request for surgery [id number] Gastroesophageal reflux disease without esophagi tis 11/20/2017 Fibromyalgia 11/20/2017 Depression 11/20/2017 Assessment & Plan (08/09/2022 8:04 AM EST): Stable, continue fluoxetine. Chronic pain 11/20/2017 Assessment & Plan (08/09/2022 8:06 AM EST): Multiple pain generators, managing with gabapentin, Botox injections for cervicogenic headache and carisoprodol. Allergic rhinitis 11/20/2017 Acquired hallux rigidus 11/20/2017 Osteoarthritis 11/20/2017 Menopausal vaginal dryness 11/20/2017 Assessment & Plan (05/08/2022 2:22 PM EDT): Marianne will continue with Estradiol cream which has been effective and helpful. We reviewed washing with water only, unscented products, cotton undies and airing out genital area to help prevent intermittent vaginal itching/possible yeast infection. 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 Chronic migraine 11/20/2017 Overview (03/29/2020): First seen at [facility] Neurology for Headache 12/10/17 Dr. Looney Onset and course over the years Onset in 20s, worsened after a fall down some stairs age 35 Complicated by cervical spondylosis and chronic neck pain Family History Imaging MRI brain - 12/06/17, none non specific WML in left frontal lobe, otherwise unremarkable. Medication Trials Zomig - since in her 40s, good relief with 1/2 pill, takes other half sometimes - once a month ASA - stopped (was taking 84/week) Caffeine - stopped Gabapentin - 400mg -, no clear relief, sleepiness with, on for 6-8 years no clear help. Amitriptyline - felt woozy, had frequent urination, nausea on 10mg, so it was stopped Propranolol - unable to take due to low blood pressure and depression topiramate - trial started 06/22 - now increasing to 75mg 07/23/18, no effect yet. Botox 11/11/18 Botox 155 units per protocol 02/03/19 - botox 135 units - less headaches since last visit, 4-5 days not CANTU, Zomig helps with major HAs. January 17 CANTU days/month 05/05/19 - CANTU days a month - , 155 units botox, zomig helping with 1/2 pill early in the CANTU. 08/04/19 - 10 CANTU days a month, 155 units botox. Zomig continues to help with 1/2 pill usually. 11/03/19 - 8-13 CANTU days a month, zomig continues to help with 1/2 pill in 10-15 min. Botox not given today due to remote visit because of the COVID-19 crisis. 12/29/19 - more CANTU last two months as unable to inject due to COVID-19 crisis. Last month allodynia started and has been daily since. More major CANTU in December. 155 units botox given today. 03/29/20 - injections on time last time. , 9-15 CANTU days a month, good relief with zolmitripan, had to repeat dose several time. Botox 155units. Assessment & Plan (03/29/2020 12:13 PM EDT): Injections helped last time, 9-15 CANTU days a month, good relief with zolmitripan, had to repeat dose several times. Impression Chronic migraine - with Botox injections regularly, 9-15 CANTU days a month, with good relief with zolmig, sometimes has a repeat a dose. Prior to Botox almost daily headache. Complicated by cervical spondylisis. Plan Botox 155 units given Rx refilled. Will transfer care to [facility] Gannon to see in 3 months for Botox injections due to my usp. Referral put in. Emails sent. Assessment & Plan (12/29/2019 12:16 PM EDT): When Botox was working - Aug CANTU, major ones, no minor one. Sep major, one minor October major, one minor November - (botox late) November 16 - scalp sore all the time, lasted until now, CANTU 13 major, no minor December - scalp tenderness continued, increased soma December 17 to, CANTU 16 major and no minor, and scalp tenderness all the time. Impression Chronic migraine, more CANTU since late for Botox for migraine by 2 months because of the Covid-19 crisis, allodynia started last month and has been daily since. Plan Botox for migraine per protocol - 155 units. Discussed my usp, and transfer of care. Consider TAYLOR Gannon or Dr. Gannon. See in March myself or colleague depending on availability Assessment & Plan (11/03/2019 3:33 PM EDT): Last Botox injection was 08/04/2019. She is continued to have 8-13 headache days a month with good relief from Zomig half a tablet in 10 to 15 minutes. Due to the COVID-19 situation we were unable to see each other in person in order to do the Botox injections for migraine. Impression Chronic migraine well controlled on Botox for migraine every 3 months, gabapentin 600 mg at bedtime, and Zomig one half of a 5 mg tablet. Plan She will work on doing practical things in this period of time that her Botox for migraine injections are delayed. She will use cold packs and having her press on trigger points in her neck more regularly. I have tentatively made an appointment for December 29 at 10:30 AM for Botox for migraine injections if the COVID-19 situation has improved. Assessment & Plan (08/05/2019 7:43 PM EST): 10 CANTU days a month for the last three months, good relief with Zomig 5mg - 1/2 tablet early in the CANTU. Botox 155 units per protocol. 45 units wasted. See in three months. Medication Orders Placed This Encounter Medications ZOLMitriptan (ZOMIG) 5 MG tablet Sig: Take 1/2 or 1 tablet at the start of the headache, if incomplete relief can repeat in 2 hours x 1. Dispense: 12 tablet Refill: 5 Assessment & Plan (02/03/2019 6:11 PM EDT): Some improvement after the first set of Botox injections on 11/11/2018. Having an average of 11 major headaches a month. Most headaches in January were in the last 2 weeks. Zomig is helping the major headaches Impression Migraine without aura with some improvement from first set of Botox injections with less major headaches responding to the Zomig. Plan Botox for migraine 135 units Renew prescription for zolmitriptan. She is responding to half of the 5 mg tablet at a time. She will continue the gabapentin 600 mg at night. See in 3 months. Assessment & Plan (11/11/2018 4:50 PM EDT): Continuing HAs, 16-21 CANTU days a month. Did not tolerate Topiramate - at 75mg more tearful, dry eyes, worse at 100mg so tapered off. Impression Chronic migraine Plan Botox per protocol 155 units injected, 45 wasted. Do not rub injected areas for a day See in three months Assessment & Plan (07/23/2018 2:40 PM EST): Brings in detailed headache diary for the last 3 months. Continues to get good relief with Zomig but because of the limited quantity per month of 12 she hesitates to take it until the headache is well established. Even when she takes it later such as in 3 hours or 2 hours or 8 hours it does tend to get relief in about half an hour. Occasionally it fails. She has had headache on average about 7 days. She started the topiramate near the end of June and has not noted any change in the headaches. She has a headache anywhere from 1-9 hours in a day pending on when she takes the Zomig. She had 19 headaches in April, 17 headaches in May, 17 headaches in June and so far in July she has had 14. Impression Chronic daily migraine headaches without aura. Plan She was unable to tolerate amitriptyline even at very low doses it made her woozy and gave her frequent urination and nausea so it was stopped Gabapentin unable to tolerate more than 600 mg Propranolol unable to take due to low blood pressure and active depression Topiramate 25 mg currently on 50 mg at night will increase by 25 mg a week until on 100 mg at night We talked about getting a massage of the head and neck area once a week as she had been getting it sporadically maybe once a month or less Try Zomig 5 mg 1/2 pill very early in the headache to see if this is effective Continue to stay off the aspirin, [id number] meds, and caffeine as you are doing Will put in for botulinum toxin injections for migraine if we do not have a response to the topiramate and the more regular massage. Assessment & Plan (04/25/2018 5:55 PM EDT): Chronic migraine since age 19 worsened after a fall, now increasing in frequency, now up to 21 CANTU days a month. Unable to tolerate more than 600 mg of gabapentin without benefit, and continuing sleepiness at this dose. Unable to take propranolol due to chronic low BP. Zomig some help, but runs out after 12 pills a month for 21 headache days. Plan Stop melatonin to see if less sleepiness and can increase the gabapentin. Cannot take propanolol as chronically low BP Consider topiramate. If ineffectual or cannot tolerate, consider Botox. Assessment & Plan (01/30/2018 10:30 PM EDT): 20 or more CANTU days a month with migrainous features ranging from mild to severe. Some help with Zomig. Tried higher doses of gabapentin in the past over 300mg, but got SE as tried to go up by 300mg at a time. Amitriptyline started last visit also gave her SE. She stopped the ASA and caffeine abruptly which may have caused worsening of the headaches. Exam - occipital and suboccipital tenderness Impressions - migraine without aura with possible cervicogenic component Plan Will review new MRIs from today to old ones. Will review outside records brought with her today. I will contact her with the results of above. Might add magnesium next time. She will try keeping track of he migraines on a migraine venus Increase gabapentin slowly by 100mg at a time. Start B2 400mg a day (discussed can turn urine bright orange) See in three months. Assessment & Plan (12/11/2017 6:28 PM EDT): Some headache starting in her 20s, complicated by a fall down the stairs with brief loss of consciousness and fracture of the right arm. After the fall she started having more frequent headaches that were relieved by Zomig and had noise and motion sensitivity. Currently she is having 14 headache days a month that are severe for which she gets some relief from Zomig but she is also taking 84 buffered aspirins a week. She is also drinking caffeine a large cup of coffee a day and recently stopped a daily 12 ounce Coke a month and a half ago. Examination today is largely unremarkable. Impression Probable migraine without aura increasing in frequency with some response to Zomig. Evaluate for cervicogenic component. Evaluate for C-spine abnormalities secondary to her fall years ago. Evaluate for [employer] abnormality as she has never had a brain MRI that she knows of. Plan She is to work on decreasing the buffered aspirin by several pills a week with the plan of tapering off the medicine completely in several months Decreased the caffeine intake by half a cup of coffee a week until she is off. She can substitute with decaffeinated. MRI of the brain and C-spine She will tap taper off the nefazodone When she is off the nefazodone she is to start amitriptyline 10 mg and increase by one pill a week till she is on three pills at bedtime See in two months (she can get the MRIs the same day that I see her such as a Saturday get the scans in the morning and see in the afternoon) Neuroma 11/20/2017 Prediabetes 11/20/2017 Ganglion of tendon sheath 03/03/2015 Overview (11/20/2017): Ganglion of tendon sheath Osteoarthritis of carpometacarpal joint of left thumb Resolved Problems Problem Noted Date Diagnosed Date Resolved Date Menopausal vasomotor syndrome 02/02/2019 05/08/2022 Assessment & Plan (02/02/2019 2:07 PM EDT): Lisseth plans to complete her tapering of HRT very soon and will continue black cohosh if needed. Hyperlipidemia 11/20/2017 05/17/2023 Menopausal symptom 11/20/2017 9 Encounters Date Type Department Care Team Description 03/23/2025 Telephone [facility] [address] [place] [address] Dumont, Jarod Medication Prior Authorization (Soma 350mg) 03/19/2025 Telephone [facility] Medicine - [place] [address] [facility] [address] [place] [address] Katt Peralta Medication Prior Authorization 03/15/2025 11:30 AM EDT Office Visit [facility] Department of Neurology [address] [facility], [address] [place] [address], [address] [place] [address] Aida Terrell MD, MSc Mild dementia without behavioral disturbance, psychotic disturbance, mood disturbance, or anxiety, unspecified dementia type (Primary Dx); Parkinsonism, unspecified Parkinsonism type; Imbalance; Neuropathy; JACKY (obstructive sleep apnea) 02/10/2025 11:45 AM EDT Office Visit [facility] [address] [facility] [place] [address] Pranav Zelaya MD JACKY (obstructive sleep apnea) (Primary Dx) 02/10/2025 Telephone [facility] [address] [place] [address] Zora Nuñez MA DME (CPAP mask change) 02/09/2025 Telephone [facility] [address] [place] [address] Tiffanie Dunlap CPAP order 02/07/2025 Refill [facility] [address] [place] [address] Xavier Segura MD Medication Refill 01/25/2025 6:18 PM EDT - 01/25/2025 6:20 PM EDT Emergency [facility] [address] [place] [id number] [address] Purcell MD Discharge Disposition: Home or Self Care 01/25/2025 Procedure Pass [facility], Ct Scan - [address] [address] 01/25/2025 Procedure Pass [facility], Ct Scan - [facility] [address] [place] [place] [address] 01/20/2025 Refill [facility] [address] [place] [address] Xavier Segura MD Medication Refill 01/17/2025 Refill [facility] [address] [place] [address] Mik Finley, DO Medication Refill 01/17/2025 Refill [facility] [address] [place] [address] Mik Finley, DO Medication Refill from Last 3 Months Immunizations Immunization Administration Dates Next Due COVID-19 (Pre-05/27) [place] Vaccine, mRNA, PF 07/05/2021,11/04/2020,10/14/2020 INFLUENZA, SPLIT VIRUS, TRIV ALENT W/ PRESERVATIVE IM 05/28/2011 Influenza High-Dose Quadriva lent Preservative Free IM 06/25/2023,06/08/2022,06/11/2020,06/09 Influenza High-Dose Trivalen t Preservative Free IM 07/09/2019,05/31/2018,07/03/2017,07/09,07/21/2015,06/24/2014 Influenza Quadrivalent Adjuv anted Preservative Free IM 06/27/2021 Influenza trivalent preserva tive free intradermal 06/01/2013 Pneumococcal conjugate PCV13 01/17/2015 Pneumococcal polysaccharide PPSV23 01/23/2016, Tdap 03/05/2023,05/29/2012 Zoster recombinant 05/12/2020,02/10/2020 Family History Medical History Relation Comments Alcohol abuse Father Breast cancer Maternal Aunt Breast cancer Maternal Grandmother Breast cancer Mother Cataracts Mother Coronary artery disease Mother Hyperthyroidism Mother Kidney disease Mother Relation Status Comments Father Maternal Aunt Alive Maternal Grandfather Maternal Grandmother Mother Alive Paternal Grandfather Paternal Grandmother Son Alive Social History Tobacco Use Types Packs/Day Years Used Date Smoking Tobacco: Never Passive Smoke Exposure: Past Smokeless Tobacco: Never Tobacco Cessation:Counseling Given: Not Answered Alcohol Use Standard Drinks/Week Comments Never 0 [...] your housing situation today? I have rosangela sing 06/23/2021 How many times have you move [...] file Not on file Not on file Last Filed Vital Signs Vital Sign Reading Time Taken Comments Blood Pressure 116/67 03/15/2025 11:28 AM EDT Pulse 67 03/15/2025 11:28 AM EDT Temperature 36.7 C (98.1 F) 03/15/2025 11:28 AM EDT Respiratory Rate 18 01/25/2025 3:08 PM EDT Oxygen Saturation 97% 03/15/2025 11:28 AM EDT Inhaled Oxygen Concentration - - Weight 59.4 kg (131 lb) 03/15/2025 11:28 AM EDT Height 167.6 cm (5' 5.98 ) 03/15/2025 11:28 AM E DT Body Mass Index 21.15 03/15/2025 11:28 AM EDT Plan of Treatment Upcoming Encounters Date Type Department Care Team (Late st Contact Info) Description 05/20/2025 2:30 PM EDT Office Visit [facility] [address] [place] [id number] Mik Finley, [address] [place] [phone] 05/26/2025 3:30 PM EDT Appointment [facility], [address] [place] [address] Aida Terrell MD, MSc [address] [place] [address] 06/22/2025 10:45 AM EST Office Visit [facility] [address] [facility] [place] [address] [place] [address] Pranav Zelaya MD [address] [facility] 2nd [place] [address] [email or web address] 08/09/2025 10:30 AM EST Telemedicine [facility] Department of Neurology [address] [place] [address], [address] [place] [address], [address] [place] [address] Aida Terrell MD, MSc [address] [place] [address] [place] [id number] [email or web address] Health Maintenance Due Date Last Done Comments RSV VACCINE (1 - 1-dose 75+ series) 01/10/2024 COVID-19 VACCINE ( season) 2024 06/10/2024, 06/12/2023, 06/15/2022, Additional history exists INFLUENZA VACCINE (#1) 2025 , 06/25/2023, 06/25/2023, Additional history exists MAMMOGRAM 08/03/2025 08/03/2024, 06/05, 06/05/2022, Additional history exists DEPRESSION SCREENING 11/06/2025 11/06/2024, 11/07/19 25 LIPID PANEL 07/02/2027 07/02/2022, 06/06, 06/20/2021, Additional history exists Adult Td,Tdap Booster 03/05/2033 03/05/2023, 012 HEPATITIS C SCREENING Completed 04/28/2015 PNEUMOCOCCAL VACCINES (50+ years) Completed 01/23/2016, 01/17/2015, 05/29/2012 OSTEOPOROSIS SCREENING INITIAL (ONE-TIME) Completed 03/10/2019, 04/23/2014 ZOSTER VACCINES Completed 05/12/2020, 02/10/2020 SMOKING STATUS SCREENING (Once After 26 Yrs) Completed 03/15/2025 HEPATITIS A VACCINES Aged Out No long er eligible based on patient's age to complete this topic HIB VACCINES Aged Out No longer eligi ble based on patient's age to complete this topic MENINGOCOCCAL VACCINES (ACWY) Aged Out No longer eligible based on patient's age to complete this topic MENINGOCOCCAL VACCINES (B) Aged Out N o longer eligible based on patient's age to complete this topic Medical Devices Implanted Type Area Manager Respiratory Care Device Identifier Shelf Expiration Date Model / Serial / Lot Hardware-Back Back Lens Procedures Procedure Name Priority Date/Time Associated Diagnosis Comments ECG 12-LEAD STAT 01/25/2025 4:40 PM EDT BASIC METABOLIC PANEL STAT 01/25/2025 3:32 PM EDT CBC AND DIFFERENTIAL STAT 01/25/2025 3:[address] CERVICAL SPINE (NEURO) WITHOUT CONTRAST Routine 01/25/2025 3:[address] HEAD WITHOUT CONTRAST Routine 01/25/2025 3:24 PM EDT BI MAMMOGRAM SCREENING WITH TOMOSYNTHESIS WITH CAD (BILATERAL) Routine 08/03/2024 2:46 PM EST Breast screening LIPID PANEL Routine 07/02/2022 12:26 PM EST Hyperlipidemia BD DXA SPINE AND HIP WITH FOREARM Routine 03/10/2019 3:50 PM EDT Screening for osteoporosis from Last 3 Months or Most Recently Relevant to Health Maintenance Results * ECG 12-LEAD (01/25/2025 4:40 PM EDT) Ventricular Rate EKG/MIN 63 BPM [facility] Atrial Rate 63 BPM [facility] UT Interval 154 ms [facility] QRS Duration 100 ms [facility] QT Interval 418 ms [facility] QTC Interval 427 ms [facility] P [place] 57 degrees [facility] R Wave [place] 10 degrees [facility] T Wave [place] 44 degrees [facility] 01/25/2025 4:40 PM EDT 01/27/2025 8:20 AM EDT Narrative [facility] - 01/27/2025 8:20 AM EDT Normal sinus rhythm Normal ECG When compared with ECG of 05-Mar-2023 00:45, No significant change was found Confirmed by Gaurav Campos ([id number]) on 01/27/2025 8:20:16 AM us Jc Purcell MD ECG ORDERABLES Final Result [facility] * (ABNORMAL) CBC and differential (01/25/2025 3:32 PM EDT) WBC 5.80 4.00 - 11.00 K/uL [facility] RBC 3.86(L) 4.00 - 5.20 M/uL [facility] HGB 12.5 12.0 - 16.0 g/dL [facility] HCT 37.6 36.0 - 46.0 % [facility] PLT 241 150 - 450 K/uL [facility] MCV 97.4 80.0 - 100.0 fL [facility] MCH 32.4(H) 27.0 - 31.0 pg [facility] MCHC 33.2 32.0 - 36.0 g/dL [facility] RDW 12.3 11.5 - 14.5 % [facility] MPV 9.1 8.4 - 12.0 fL [facility] NRBC 0.00 0.00 /100 WBCs [facility] ABSOLUTE NRBC 0.00 0.00 K/uL [facility] DIFF METHOD Auto [facility] NEUTS 64.7 48.0 - 76.0 % [facility] LYMPHS 23.3 18.0 - 41.0 % [facility] MONOS 9.7 4.0 - 11.0 % [facility] EOS 1.6 0.0 - 5.0 % [facility] BASOS 0.5 0.0 - 1.5 % [facility] Granulocytes, immature (%) 0.2 0.0 - 0.9 % [facility] ABSOLUTE NEUTS 3.76 1.92 - 7.60 K/uL [facility] ABSOLUTE LYMPHS 1.35 0.72 - 4.10 K/uL [facility] ABSOLUTE MONOS 0.56 0.16 - 1.10 K/uL [facility] ABSOLUTE EOS 0.09 0.00 - 0.50 K/uL [facility] ABSOLUTE BASOS 0.03 0.00 - 0.15 K/uL [facility] Granulocytes, immature 0.01 0.00 - 0.09 K/uL [facility] Blood 01/25/2025 3:32 PM EDT 01/25/2025 3:46 PM EDT Jc Purcell MD LAB BLOOD ORDERABLES Final Resul t Performing Organization Address [facility] Co de Phone Number [address] [address] * (ABNORMAL) Basic metabolic panel (01/25/2025 3:32 PM EDT) SODIUM 143 133 - 146 mmol/L [facility] CHLORIDE 107 96 - 108 mmol/L [facility] POTASSIUM 4.2 3.3 - 5.1 mmol/L [facility] Comment:Specimen slightly he molyzed, result may be falsely elevated. CO2 28 21 - 35 mmol/L [facility] BUN 19 6 - 19 mg/dL [facility] CREATININE 0.60 0.5 - 1.5 mg/dL [facility] GLUCOSE 124(H) 70 - 99 mg/dL [facility] CALCIUM 9.4 8.4 - 10.3 mg/dL [facility] EGFR 93 >59 mL/min/1.7 3m2 [facility] Comment:Estimated glomerular filtration rate calculated using the CKD-EPI refit equation. ANION GAP 12 10 - 20 mmol/L [facility] Blood 01/25/2025 3:32 PM EDT 01/25/2025 3:46 PM EDT Jc Purcell MD LAB BLOOD ORDERABLES Final Resul t Performing Organization Address [facility] Co de Phone Number [address] [address] * CT CERVICAL SPINE (NEURO) WITHOUT CONTRAST (01/25/2025 3:24 PM EDT) Anatomical Region Laterality Modality C-spine Computed Tomogra phy 01/25/2025 4:05 PM EDT Impressions 01/25/2025 4:22 PM EDT 1. Mild left occipital scalp swelling without underlying calvarial or brain injury. No acute intracranial hemorrhage.. 2. No acute fracture or traumatic malalignment of the cervical spine. Narrative 01/25/2025 4:[address] HEAD WITHOUT CONTRAST, CT CERVICAL SPINE (NEURO) WITHOUT CONTRAST Referring clinician's provided indication for this examination in [facility]: * Head trauma, minor (Age >= 65y) TECHNIQUE: CTs of the head and cervical spine were performed without intravenous contrast using tailored dose modulation techniques. Images were reconstructed in the axial, coronal, and sagittal planes. COMPARISON: CT HEAD WITHOUT CONTRAST FINDINGS: HEAD: Brain Parenchyma: Hypodensities in the cerebral periventricular and deep white matter, likely a manifestation of chronic small vessel disease. . No midline shift, mass effect, parenchymal hemorrhage, or evidence of acute territorial infarct. Ventricular System and Extra-Axial Spaces: The ventricles and sulci are prominent. No extra-axial fluid collections. Basilar cisterns are patent. No hydrocephalus. Osseous and Extracranial Structures: Mild scalp edema at the left occipital scalp. No underlying calvarial fracture. No significant paranasal sinus disease. Evidence of prior ocular lens surgery. CERVICAL SPINE: Alignment and Vertebrae: Reversal of the normal cervical lordosis. Partial interbody C3-4 fusion. No acute cervical spine fracture. Intact ring of C1. Normal atlantoaxial distance. Discs and Endplates: Chronic disc degeneration most severe at C5-6 with disc calcification at C4-5 and partial disc fusion of C3-4. Other Findings: None. Procedure Note Jorge Farris MD - 01/25/2025 CT HEAD WITHOUT CONTRAST, CT CERVICAL SPINE (NEURO) WITHOUT CONTRAST Referring clinician's provided indication for this examination in [facility]: *Head trauma, minor (Age >= 65y) TECHNIQUE: CTs of the head and cervical spine were performed withoutintravenous contrast using tailored dose modulation techniques. Imageswere reconstructed in the axial, coronal, and sagittal planes. COMPARISON: CT HEAD WITHOUT CONTRAST FINDINGS: HEAD: Brain Parenchyma: Hypodensities in the cerebral periventricular and deepwhite matter, likely a manifestation of chronic small vessel disease. . Nomidline shift, mass effect, parenchymal hemorrhage, or evidence of acuteterritorial infarct. Ventricular System and Extra-Axial Spaces: The ventricles and sulci areprominent. No extra-axial fluid collections. Basilar cisterns are patent.No hydrocephalus. Osseous and Extracranial Structures: Mild scalp edema at the leftoccipital scalp. No underlying calvarial fracture. No significantparanasal sinus disease. Evidence of prior ocular lens surgery. CERVICAL SPINE: Alignment and Vertebrae: Reversal of the normal cervical lordosis. Partialinterbody C3-4 fusion. No acute cervical spine fracture. Intact ring ofC1. Normal atlantoaxial distance. Discs and Endplates: Chronic disc degeneration most severe at C5-6 withdisc calcification at C4-5 and partial disc fusion of C3-4. Other Findings: None. IMPRESSION: 1. Mild left occipital scalp swelling without underlying calvarial orbrain injury. No acute intracranial hemorrhage.. 2. No acute fracture or traumatic malalignment of the cervical spine. us Jc Purcell MD IM CT XSPECIALTY ORDERABLES Fin al Result * CT HEAD WITHOUT CONTRAST (01/25/2025 3:24 PM EDT) Anatomical Region Laterality Modality Head Computed Tomogra phy 01/25/2025 4:05 PM EDT Impressions 01/25/2025 4:22 PM EDT 1. Mild left occipital scalp swelling without underlying calvarial or brain injury. No acute intracranial hemorrhage.. 2. No acute fracture or traumatic malalignment of the cervical spine. Narrative 01/25/2025 4:[address] HEAD WITHOUT CONTRAST, CT CERVICAL SPINE (NEURO) WITHOUT CONTRAST Referring clinician's provided indication for this examination in [facility]: * Head trauma, minor (Age >= 65y) TECHNIQUE: CTs of the head and cervical spine were performed without intravenous contrast using tailored dose modulation techniques. Images were reconstructed in the axial, coronal, and sagittal planes. COMPARISON: CT HEAD WITHOUT CONTRAST FINDINGS: HEAD: Brain Parenchyma: Hypodensities in the cerebral periventricular and deep white matter, likely a manifestation of chronic small vessel disease. . No midline shift, mass effect, parenchymal hemorrhage, or evidence of acute territorial infarct. Ventricular System and Extra-Axial Spaces: The ventricles and sulci are prominent. No extra-axial fluid collections. Basilar cisterns are patent. No hydrocephalus. Osseous and Extracranial Structures: Mild scalp edema at the left occipital scalp. No underlying calvarial fracture. No significant paranasal sinus disease. Evidence of prior ocular lens surgery. CERVICAL SPINE: Alignment and Vertebrae: Reversal of the normal cervical lordosis. Partial interbody C3-4 fusion. No acute cervical spine fracture. Intact ring of C1. Normal atlantoaxial distance. Discs and Endplates: Chronic disc degeneration most severe at C5-6 with disc calcification at C4-5 and partial disc fusion of C3-4. Other Findings: None. Procedure Note Jorge Farris MD - 01/25/2025 CT HEAD WITHOUT CONTRAST, CT CERVICAL SPINE (NEURO) WITHOUT CONTRAST Referring clinician's provided indication for this examination in [facility]: *Head trauma, minor (Age >= 65y) TECHNIQUE: CTs of the head and cervical spine were performed withoutintravenous contrast using tailored dose modulation techniques. Imageswere reconstructed in the axial, coronal, and sagittal planes. COMPARISON: CT HEAD WITHOUT CONTRAST FINDINGS: HEAD: Brain Parenchyma: Hypodensities in the cerebral periventricular and deepwhite matter, likely a manifestation of chronic small vessel disease. . Nomidline shift, mass effect, parenchymal hemorrhage, or evidence of acuteterritorial infarct. Ventricular System and Extra-Axial Spaces: The ventricles and sulci areprominent. No extra-axial fluid collections. Basilar cisterns are patent.No hydrocephalus. Osseous and Extracranial Structures: Mild scalp edema at the leftoccipital scalp. No underlying calvarial fracture. No significantparanasal sinus disease. Evidence of prior ocular lens surgery. CERVICAL SPINE: Alignment and Vertebrae: Reversal of the normal cervical lordosis. Partialinterbody C3-4 fusion. No acute cervical spine fracture. Intact ring ofC1. Normal atlantoaxial distance. Discs and Endplates: Chronic disc degeneration most severe at C5-6 withdisc calcification at C4-5 and partial disc fusion of C3-4. Other Findings: None. IMPRESSION: 1. Mild left occipital scalp swelling without underlying calvarial orbrain injury. No acute intracranial hemorrhage.. 2. No acute fracture or traumatic malalignment of the cervical spine. Jc Purcell MD IMG CT HEAD/NECK Final Result * BI MAMMOGRAM SCREENING WITH TOMOSYNTHESIS WITH CAD (BILATERAL) (08/03/2024 2:46 PM EST) Anatomical Region Laterality Modality Breast Left, Breast Right, Breast Bilateral Bila teral Mammography 08/04/2024 9:58 AM EST Impressions 08/04/2024 9:59 AM EST No mammographic evidence of malignancy in either breast. Annual screening mammography is recommended. BI-RADS 1 NEGATIVE The patient will be notified of the results and recommendations. Narrative 08/04/2024 9:59 AM EST BI MAMMOGRAM SCREENING WITH TOMOSYNTHESIS WITH CAD (BILATERAL) Additional patient information: Screening. COMPARISON: Comparison is made with relevant prior imaging. Breast composition: The breast tissue is heterogeneously dense which may obscure small masses. FINDINGS: No abnormal masses, suspicious calcifications, or other significant findings are identified mammographically in either breast. Procedure Note Mary Bettencourt MD - 08/04/2024 BI MAMMOGRAM SCREENING WITH TOMOSYNTHESIS WITH CAD (BILATERAL) Additional patient information: Screening. COMPARISON: Comparison is made with relevant prior imaging. Breast composition: The breast tissue is heterogeneously dense which mayobscure small masses. FINDINGS: No abnormal masses, suspicious calcifications, or other significantfindings are identified mammographically in either breast. IMPRESSION: No mammographic evidence of malignancy in either breast. Annual screening mammography is recommended. BI-RADS 1 NEGATIVE The patient will be notified of the results and recommendations. Xavier Segura MD IMG MG EXAMS Final Result * (ABNORMAL) Lipid panel (07/02/2022 12:26 PM EST) HDL 73 mg/dL [facility] Comment: Interpretation <40 mg/dL: Low HDL cholesterol (major risk factor for CHD) Greater than or equal to 60 mg/dL: High HDL cholesterol ( negative risk factor for CHD) HDL - cholesterol is affected by a number of factors, e.g. smoking, excerise, hormones, sex and age. CHOLESTEROL 170 0 - 240 mg/dL [facility] TRIGLYCERIDES 67 30 - 160 mg/dL [facility] LDL 84 50 - 129 mg/dL [facility] Comment: LDL levels in terms of risk for coronary heart disease: <100 mg/dL: Optimal 100-129 mg/dL: Near or above optimal 130-159 mg/dL: Borderline high 160-189 mg/dL: High >190 mg/dL: Very High CARDIAC RISK RATIO 2.3(L) 3.3 - 4.4 [facility] Blood 07/02/2022 12:2 6 PM EST 07/02/2022 12:36 PM EST us Xavier Segura MD LAB BLOOD ORDERABLES Final Res ult [address] [id number] * BD DXA SPINE AND HIP WITH FOREARM (03/10/2019 3:50 PM EDT) Anatomical Region Laterality Modality Bone Density Bone Density 03/10/2019 6:47 PM EDT Addenda Addendum by Epi Grant MD on 03/12/2019 3:14 PM EDT This is a >>69 year-old<< postmenopausal female with a lifetime perceived height loss of 2 inches. Compared with previous studies 04/23/2014 and 04/14/2012.. Evaluation of the left forearm, lumbar spine and both hips is obtained and appears technically adequate. L3 and L4 again excluded from analysis due to sclerotic degenerative endplate changes. The lumbar spine at L1 and L2 discloses a total bone mineral density of 1.154 g/cm2 with a T-score of 1.6. This is in the normal range. This corresponds to a statistically significant bone mineral density change of 5.0% The right hip has a total bone mineral density of 1.080 g/cm2 with a T-score of 1.1. This is in the normal range. No statistically significant change from most recent previous exam. The left hip has a total bone mineral density of 1.091 g/cm2 for a T-score of 1.2. This is in the normal range. No statistically significant change from most recent previous exam. The left forearm has a total bone mineral density of 0.581 g/cm2 for a T-score of 0.3. This is in the normal range. Lateral instant vertebral imaging is no performed. IMPRESSION: Continued normal bone mineral density. Statistically significant bone density gain in the lumbar spine compared with 04/23/2014. Edited by: Sammi Bell on 03/11/2019 11:41 AM Impressions 03/10/2019 6:49 PM EDT Continued normal bone mineral density. Statistically significant bone density gain in the lumbar spine compared with 04/23/2014. POS -[id number] Narrative 03/10/2019 6:49 PM EDT This is a 6-year-old postmenopausal female with a lifetime perceived height loss of 2 inches. Compared with previous studies 04/23/2014 and 04/14/2012.. Evaluation of the left forearm, lumbar spine and both hips is obtained and appears technically adequate. L3 and L4 again excluded from analysis due to sclerotic degenerative endplate changes. The lumbar spine at L1 and L2 discloses a total bone mineral density of 1.154 g/cm2 with a T-score of 1.6. This is in the normal range. This corresponds to a statistically significant bone mineral density change of 5.0% The right hip has a total bone mineral density of 1.080 g/cm2 with a T-score of 1.1. This is in the normal range. No statistically significant change from most recent previous exam. The left hip has a total bone mineral density of 1.091 g/cm2 for a T-score of 1.2. This is in the normal range. No statistically significant change from most recent previous exam. The left forearm has a total bone mineral density of 0.581 g/cm2 for a T-score of 0.3. This is in the normal range. Lateral instant vertebral imaging is no performed. Procedure Note Epi Grant MD - 03/10/2019 This is a 6-year-old postmenopausal female with a lifetime perceivedheight loss of 2 inches. Compared with previous studies 04/23/2014 and 04/14/2012.. Evaluation of the left forearm, lumbar spine and both hips is obtained andappears technically adequate. L3 and L4 again excluded from analysis dueto sclerotic degenerative endplate changes. The lumbar spine at L1 and L2 discloses a total bone mineral density of1.154 g/cm2 with a T-score of 1.6. This is in the normal range. Thiscorresponds to a statistically significant bone mineral density change of5.0% The right hip has a total bone mineral density of 1.080 g/cm2 with aT-score of 1.1. This is in the normal range. No statisticallysignificant change from most recent previous exam. The left hip has a total bone mineral density of 1.091 g/cm2 for a T-scoreof 1.2. This is in the normal range. No statistically significant changefrom most recent previous exam. The left forearm has a total bone mineral density of 0.581 g/cm2 for aT-score of 0.3. This is in the normal range. Lateral instant vertebral imaging is no performed. IMPRESSION: Continued normal bone mineral density. Statistically significant bonedensity gain in the lumbar spine compared with 04/23/2014. POS -[id number] Xavier MALAVE BD BONE DENSITY DEXA Edite d Result - Final from Last 3 Months or Most Recently Relevant to Health Maintenance Insurance MEDICARE PART A & B [facility] [employer] MEDICARE SUPPLEMENT MEDICARE PART A & B [employer] MEDICARE SUPPLEMENT MEDICARE PART A & B [facility] MEDICARE SUPPLEMENT MEDICARE PART A & B [facility] [employer] EXTENSION MEDICARE SUPPLEMENT MEDICARE PART A & B [facility] EXTENSION MEDICARE SUPPLEMENT MEDICARE PART A & B [employer] MEDICARE SUPPLEMENT MEDICARE PART A & B [employer] EXTENSION MEDICARE SUPPLEMENT MEDICARE PART A & B [facility] MEDICARE SUPPLEMENT MEDICARE PART A & B [facility] EXTENSION MEDICARE SUPPLEMENT Advance Directives For more information, please contact: [phone] (9AM - 5PM [facility], Saturday-Saturday) * Full Code (Latest Code Status on File) Date Activated Date Inactivated Comments 03/05/2023 5:27 AM Question Answer Comments Code Status Confirmed With: Patient Code Status Communicated To: Inpatient Attending Healthcare Agents on File Name Relationship Healthcare Agent [facility] Calvin Truong Spouse .Primary Health Care Agent (Proxy form on file) Care Teams Strategy Intern Relationship Specialty Start Date End Date Xavier Segura MD [address] [place] [address], [address] [place] [address] PCP - General Family Medicine 02/09/15 Xavier Segura MD [address] [place] [address], [address] [place] [address] Insurance Assigned Provider 11/09/23 Mik Finley DO [address] [place] [address] [email or web address] Geriatric Medicine 10/09/24 Additional Source Comments The information contained in this document represents components of the legal health record. It is not the complete legal health record.[facility]
--- OUTSIDE RECORDS SUMMARY | 2025-04-13 17:14 | XMS_ITS | Encounter Summary ---
Author Organization [facility] Address [address] [place] [address] [place] [address] Phone Care Team Providers Care Tub Operator Name Role Phone Xavier Segura MD Primary Care Provider [phone] Xavier Segura MD Unavailable [phone] Sammi Mojica OT Unavailable [phone] Nafisa Avery MD Unavailable [phone] Mik Finely DO Unavailable [phone] Encounter Details Date Type Department Care Team (Late st Contact Info) Description 04/30/2020 Procedure Pass [facility], [address] [address] Social History Tobacco Use Types Packs/Day Years [...] Description 05/20/2025 2:30 PM EDT Office Visit [facility] [address] [place] [address] Mik Finley DO 22 [place] [address] [email or web address] 05/26/2025 3:30 PM EDT Appointment [facility], Donald [address] [place] [address], [address] [place] [address] Aida Terrell MD, MSc [address] [place] [address] 06/22/2025 10:45 AM EST Office Visit [facility] Pulmonary, Allergy and Critical Care Medicine [address] [place] [address] Pranav Zelaya MD [address] [place] [address] [email or web address] 08/09/2025 10:30 AM EST Telemedicine [facility] Department of Neurology [address] [place] [address], [address] [address] Aida Terrell MD, MSc [address] [place] [address] [email or web address] documented as of this encounter Visit Diagnoses Not on filedocumented in this encounter Additional Health Concerns Infection Onset Date Last Indicated Resolved Time CDiff-Risk 07/31/2024 07/31/2024 08/01/2024 1:09 PM EST CDiff-Risk 08/01/2024 08/01/2024 08/01/2024 2:41 PM EST Assessment Noted Time PHQ-2 Depression Total Score: 0 02/19/20 19 3:00 PM EDT documented as of this encounter Care Teams Tub Operator Relationship Specialty Start Date End Date Xavier Segura MD 22 [facility], [address] [place] [address] [email or web address] PCP - General Family Medicine 02/09/15 Xavier Segura MD 22 [facility], [address] [place] [address] [email or web address] Insurance Assigned Provider 11/09/23 Sammi Mojica, OT [address] [place] [address] [email or web address] Transitions Museum AttendantShip Steward Therapy 03/05/23 Nafisa Avery MD [address] [place] [address] [email or web address] Geriatric Medicine 05/21/23 10/08/24 Mik Finley DO [address] [place] [address] [email or web address] Geriatric Medicine 10/09/24 documented as of this encounter Additional Source Comments The information contained in this document represents components of the legal health record. It is not the complete legal health record.[facility]
--- OUTSIDE RECORDS SUMMARY | 2025-04-13 17:14 | XMS_ITS | Encounter Summary ---
Author Organization [facility] Address [address] [place] [address] [place] [address] Phone Care Team Providers Care Superintendent Horticulture Name Role Phone Xavier Segura MD Primary Care Provider [phone] Xavier Segura MD Unavailable Nafisa Avery MD Unavailable [phone] Mik Finley DO Unavailable [phone] Encounter Details Date Type Department Care Team (Late st Contact Info) Description 04/12/2023 Procedure Pass Non-Invasive Cardiology [address] [place] [address] Social History Tobacco Use Types Packs/Day Years [...] Answer Date Recorded Are you interested in help w ith more adult education (for example, completing high school, GED, job training, learning the Czech language, technical skills, or developing parenting skills)? I choose not to answer 06/23/2021 Food Answer Date Recorded Within the past [...] with a working camera? Not on file Comments No Sex and Gender Information Value [...] Description 05/20/2025 2:30 PM EDT Office Visit [facility] 22 [place] [address] Mik Finley DO 22 [place] [address] 05/26/2025 3:30 PM EDT Appointment [facility], [address] [place] [address] Aida Terrell MD, MSc [address] [place] [address] 06/22/2025 10:45 AM EST Office Visit [facility] Pulmonary, Allergy and Critical Care Medicine 10 [facility] [place] [address] [place] [address] Pranav Zelaya MD [address] [place] [address] 2nd [place] [address] 08/09/2025 10:30 AM EST Telemedicine [facility] Department of Neurology [address] [place] [address], [address] [address] Aida Terrell MD, MSc [address] [place] [address] [email or web address] documented as of this encounter Visit Diagnoses Not on filedocumented in this encounter Additional Health Concerns Infection Onset Date Last Indicated Resolved Time CDiff-Risk 07/31/2024 07/31/2024 08/01/2024 1:09 PM EST CDiff-Risk 08/01/2024 08/01/2024 08/01/2024 2:41 PM EST Assessment Noted Time PHQ-2 Depression Total Score: 0 08/07/19 23 12:01 PM EST documented as of this encounter Care Teams Superintendent Horticulture Relationship Specialty Start Date End Date Xavier Segura MD [address] [place] [address], [address] [address] [email or web address] PCP - General Family Medicine 02/09/15 Xavier Segura MD [address] [place] [address], [address] [address] [email or web address] Insurance Assigned Provider 11/09/23 Nafisa Avery MD [address] [place] [address], [address] [place] [address] [email or web address] Geriatric Medicine 05/21/23 10/08/24 Mik Filney DO 22 [place] [address] [email or web address] Geriatric Medicine 10/09/24 documented as of this encounter Additional Source Comments The information contained in this document represents components of the legal health record. It is not the complete legal health record.[facility]
--- OUTSIDE RECORDS SUMMARY | 2025-04-13 17:14 | XMS_ITS | Encounter Summary ---
Author Organization [facility] Address Formerly [facility] [address] [place] [address] Phone Care Team Providers Care Chief Accounting Officer Name Role Phone Xavier Segura MD Primary Care Provider [phone] Xavier Segura MD Unavailable [phone] Nafisa Avery MD Unavailable [phone] Mik Finley DO Unavailable [phone] Encounter Details Date Type Department Care Team (Late st Contact Info) Description 04/01/2024 Procedure Pass [address] [address] Social History Tobacco Use Types Packs/Day Years [...] 05/20/2025 2:30 PM EDT Office Visit [facility] [address] [place] [address] Mik Finley DO 22 [place] [address] 05/26/2025 3:[address] [facility], [address] 2[address] [place] [address] Aida Terrell MD, MSc [address] [place] [address] 06/22/2025 10:45 AM EST Office Visit [facility] Pulmonary, Allergy and Critical Care Medicine 10 [facility] [place] [address] Pranav Zelaya MD [address] [place] [address] 2nd [place] [address] 08/09/2025 10:[address] [facility] Department of Neurology [address] [place] [address], [address] [place] [address], [address] [address] Aida Terrell MD, MSc [address] [place] [address] [email or web address] documented as of this encounter Visit Diagnoses Not on filedocumented in this encounter Additional Health Concerns Infection Onset Date Last Indicated Resolved Time CDiff-Risk 07/31/2024 07/31/2024 08/01/2024 1:09 PM EST CDiff-Risk 08/01/2024 08/01/2024 08/01/2024 2:41 PM EST Assessment Noted Time PHQ-9 Depression Total Score: 1 10/24/19 24 3:27 PM EDT PHQ-2 Depression Total Score: 0 05/05/20 2:28 PM EDT documented as of this encounter Care Teams Chief Accounting Officer Relationship Specialty Start Date End Date Xavier Segura MD [address] [place] [address], [address] [place] [address] PCP - General Family Medicine 02/09/15 Xavier Segura MD [address] [place] [address], [address] [place] [address] [email or web address] Insurance Assigned Provider 11/09/23 Nafisa Avery MD 22 [facility], [address] [place] [address] [email or web address] Geriatric Medicine 05/21/23 10/08/24 Mik Finley DO 22 [place] [address] [email or web address] Geriatric Medicine 10/09/24 documented as of this encounter Additional Source Comments The information contained in this document represents components of the legal health record. It is not the complete legal health record.[facility]
--- OUTSIDE RECORDS SUMMARY | 2025-04-13 17:14 | XMS_ITS | Encounter Summary ---
Author Organization [facility] Address [address] [place] [address] [place] [address] Phone Care Team Providers Care Physical Therapy Teacher Name Role Phone Xavier Segura MD Primary Care Provider [phone] Xavier Segura MD Unavailable [phone] Sammi Mojica OT Unavailable [phone] Nafisa Avery MD Unavailable [phone] Mik Finley DO Unavailable [phone] Encounter Details Date Type Department Care Team (Late st Contact Info) Description 03/05/2023 Procedure Pass [facility] [address] [place], [place] [id number] Social History Tobacco Use Types Packs/Day Years [...] high school, GED, job training, learning the Lao language, technical skills, or developing parenting skills)? [...] Date of Assessment Author No Risk Indicated 03/05/2023 12:47 AM EDT Divine Lynn, KATHLEEN * [place] Suicide Severity Rating Scale (Screener/Recent Self-Report) Question Answer Date of Assessment Author 1. Wish to be (Past 1 Month) No 03/05/2023 12:47 AM DAVIDT Joshua Skinner, KATHLEEN 2. Non-Specific Active Suici hieu Thoughts (Past 1 Month) No 03/05/2023 12:47 AM EDT Dulce Skinner RN 6. Suicidal Behavior (Lifetime) No 12:47 AM EDT Divine Skinner RN documented as of this encounter Plan of Treatment Upcoming Encounters Date Type Department Care Team (Late st Contact Info) Description 05/20/2025 2:30 PM EDT Office Visit [facility] 22 [place] [address] Mik Finley DO 22 [place] [address] [email or web address] 05/26/2025 3:30 PM EDT Appointment [facility] Imaging, Donald [address] [place] [address], [address] [place] [address] Aida Terrell MD, MSc [address] [place] [address] 06/22/2025 10:45 AM EST Office Visit [facility] Pulmonary, Allergy and Critical Care Medicine 10 [place] [address] Pranav Zelaya MD [address] [place] [address] [email or web address] 08/09/2025 10:30 AM EST Telemedicine [facility] Department of Neurology [address] [place] [address], [address] [place] [address] Aida Terrell MD, MSc [address] [place] [address] [email or web address] documented as of this encounter Visit Diagnoses Not on filedocumented in this encounter Additional Health Concerns Infection Onset Date Last Indicated Resolved Time CDiff-Risk 07/31/2024 07/31/2024 08/01/2024 1:09 PM EST CDiff-Risk 08/01/2024 08/01/2024 08/01/2024 2:41 PM EST Assessment Noted Time PHQ-2 Depression Total Score: 0 08/07/19 12:01 PM EST documented as of this encounter Care Teams Physical Therapy Teacher Relationship Specialty Start Date End Date Xavier Segura MD [address] [place] [address], [address] [place] [address] [email or web address] PCP - General Family Medicine 02/09/15 Xavier Segura MD [address] [place] [address], [address] [place] [address] Insurance Assigned Provider 11/09/23 Sammi Mojica, OT [address] [place] [address] [email or web address] Transitions Filler InPipeline Welder Therapy 03/05/23 Nafisa Avery MD [address] [place] [address] Geriatric Medicine 05/21/23 10/08/24 Mik Finley DO [address] [place] [address] [email or web address] Geriatric Medicine 10/09/24 documented as of this encounter Additional Source Comments The information contained in this document represents components of the legal health record. It is not the complete legal health record.[facility]
--- OUTSIDE RECORDS SUMMARY | 2025-04-13 17:14 | XMS_ITS | Encounter Summary ---
Author Organization [facility] Address [address] [place] [address] [address] [place] [address] Phone Care Team Providers Care Knotting Machine Operator Name Role Phone Xavier Segura MD Primary Care Provider [phone] Xavier Segura MD Unavailable [phone] Nafisa Avery MD Unavailable [phone] Mik Finley DO Unavailable [phone] Encounter Details Date Type Department Care Team (Late st Contact Info) Description 08/18/2024 Procedure Pass [facility] Endoscopy Admitting Dept Virtual Department 30 [place] [address] Social History Tobacco Use Types Packs/Day Years [...] 05/20/2025 2:30 PM EDT Office Visit [facility] [address] [place] [address] Mik Finley DO 22 [place] [address] [email or web address] 05/26/2025 3:30 PM EDT Appointment [facility], Donald [address] [place] [address], [address] [place] [address] Aida Terrell MD, MSc [address] [place] [address] 06/22/2025 10:45 AM EST Office Visit [facility] Pulmonary, Allergy and Critical Care Medicine [address] [place] [address] Pranav Zelaya MD [address] [place] [address] [email or web address] 08/09/2025 10:30 AM EST Telemedicine [facility] [place] of Neurology [address] [place] [address], [address] [address] Aida Terrell MD, MSc [address] [place] [address] [email or web address] documented as of this encounter Visit Diagnoses Not on filedocumented in this encounter Additional Health Concerns Assessment Noted Time PHQ-9 Depression Total Score: 1 10/24/19 24 3:27 PM EDT PHQ-2 Depression Total Score: 0 05/05/20 2:28 PM EDT documented as of this encounter Care Teams Knotting Machine Operator Relationship Specialty Start Date End Date Xavier Segura MD [address] [place] [address], [address] [place] [address] PCP - General Family Medicine 02/09/15 Xavier Segura MD 22 [facility], [address] [place] [address] [email or web address] Insurance Assigned Provider 11/09/23 Nafisa Avery MD [address] [place] [address], [address] [place] [address] [email or web address] Geriatric Medicine 05/21/23 10/08/24 Mik Finley DO [address] [place] [address] [email or web address] Geriatric Medicine 10/09/24 documented as of this encounter Additional Source Comments The information contained in this document represents components of the legal health record. It is not the complete legal health record.[facility]
--- OUTSIDE RECORDS SUMMARY | 2025-04-13 17:14 | XMS_ITS | Clinical Summary ---
Author Organization [facility] Address [address] [place] [address] Care Team Providers Care Contact Center Rep Name Role Phone Xavier Segura MD Primary Care Provider [phone] Allergies Active Allergy Reactions Criticality Noted Date [...] Depression Screening 1961 Preventative Health Evaluation 1967 Shingrix-Zoster Vaccine (1 of 2) 1999 Fall Risk Assessment 2014 Osteoporosis Screening (DEXA Scan) 2014 DTap / Tdap / Td (2 - Td or Tdap) 05/29/2022 05/29/2012 RSV Adult > 60+ Yrs or (1 - 1-dose 75+ series) 01/10/2024 Influenza Vaccine (#1) 2025 7, 07/09/2016, 07/21/2015, Additional history exists Pneumococcal Vaccine Completed 01/23/2016, 01/17/2015, 05/29/2012 Hepatitis B Vaccines Aged Out No long er eligible based on patient's age to complete this topic RSV Ped < 20 months Aged Out No longe r eligible based on patient's age to complete this topic Care Teams Contact Center Rep Relationship Specialty Start Date End Date Xavier Segura MD [address] [place] [address] PCP - General Cow Rider 11/18/17
--- OUTSIDE RECORDS SUMMARY | 2025-04-13 17:14 | XMS_ITS | Encounter Summary ---
Author Organization [facility] Address [address] [place] [address] [place] [address] Phone Care Team Providers Care Economic Forecaster Name Role Phone Xavier Segura MD Primary Care Provider [phone] Xavier Segura MD Unavailable [phone] Sammi Mojica OT Unavailable [phone] Nafisa Avery MD Unavailable [phone] Mik Finley DO Unavailable [phone] Encounter Details Date Type Department Care Team (Late st Contact Info) Description 03/05/2023 Procedure Pass [facility], [address] [address] Social History Tobacco Use Types Packs/Day Years [...] high school, GED, job training, learning the Bulgarian language, technical skills, or developing parenting skills)? [...] 12:47 AM EDT Divine Lynn, KATHLEEN * [place] Suicide Severity Rating Scale (Screener/Recent Self-Report) Question Answer Date of Assessment Author 1. Wish to be (Past 1 Month) No 03/05/2023 12:47 AM DAVIDT Joshua Skinner, RN 2. Non-Specific Active Suici hieu Thoughts (Past 1 Month) No 03/05/2023 12:47 AM EDT Dulce Skinner RN 6. Suicidal Behavior (Lifetime) No 3 12:47 AM EDT Divine Skinner RN documented as of this encounter Plan of Treatment Upcoming Encounters Date Type Department Care Team (Late st Contact Info) Description 05/20/2025 2:30 PM EDT Office Visit [facility] 22 [place] [address] Mik Finley, 22 [place] [address] [email or web address] 05/26/2025 3:30 PM EDT Appointment [facility] Imaging, Donald [address] [place] [address], [address] [place] [address] Aida Terrell MD, MSc [address] [place] [address] 06/22/2025 10:45 AM EST Office Visit [facility]monary, Allergy and Critical Care Medicine [address] [place] [address] Pranav Zelaya MD [address] [place] [address] [email or web address] 08/09/2025 10:30 AM EST Telemedicine [facility] Department of Neurology [address] [place] [address], [address] [place] [address] Aida Terrell MD, MSc [address] [place] [address] [email or web address] documented as of this encounter Visit Diagnoses Not on filedocumented in this encounter Additional Health Concerns Infection Onset Date Last Indicated Resolved Time CDiff-Risk 07/31/2024 07/31/2024 08/01/2024 1:09 PM EST CDiff-Risk 08/01/2024 08/01/2024 08/01/2024 2:41 PM EST Assessment Noted Time PHQ-2 Depression Total Score: 0 08/07/19 12:01 PM EST documented as of this encounter Care Teams Economic Forecaster Relationship Specialty Start Date End Date Xavier Segura MD 22 [facility], [address] [place] [address] PCP - General Family Medicine 02/09/15 Xavier Segura MD 22 [facility], [address] [place] [address] Insurance Assigned Provider 11/09/23 Sammi Mojica, OT [address] [place] [address] [email or web address] Transitions Oil Field Rig BuilderMetal Spray Operator Therapy 03/05/23 Nafisa Avery MD [address] [place] [address] Geriatric Medicine 05/21/23 10/08/24 Mik Finley DO 22 [place] [address] Geriatric Medicine 10/09/24 documented as of this encounter Additional Source Comments The information contained in this document represents components of the legal health record. It is not the complete legal health record.[facility]
--- OUTSIDE RECORDS SUMMARY | 2025-04-13 17:14 | XMS_ITS | Encounter Summary ---
Author Organization [facility] Address [facility] [address] [place] [address] Phone Care Team Providers Care Svp Research And Strategic Analysis Name Role Phone Xavier Segura MD Primary Care Provider [phone] Xavier Segura MD Unavailable [phone] TusharMik DO Unavailable [phone] Encounter Details Date Type Department Care Team (Late st Contact Info) Description 01/25/2025 Procedure Pass [facility], Ct Scan - [address] [address] Social History Tobacco Use Types Packs/Day Years [...] 3:09 PM EDT Liz Whitaker RN * [place] Suicide Severity Rating Scale (Screener/Recent Self-Report) Question [...] Description 05/20/2025 2:30 PM EDT Office Visit [facility] [address] [place] [address] Mik Finley DO [address] [place] [address] [email or web address] 05/26/2025 3:30 PM EDT Appointment [facility] Imaging, Donald [address] [place] [address] Aida Terrell MD, MSc [address] [place] [address] 06/22/2025 10:45 AM EST Office Visit [facility] Pulmonary, Allergy and Critical Care Medicine [address] [place] [address] Pranav Zelaya MD [address] [place] [address] 08/09/2025 10:30 AM EST Telemedicine [facility] Department of Neurology [address] [place] [address], [address] [place] [address], [address] [address] Aida Terrell MD, MSc [address] [place] [address] documented as of this encounter Visit Diagnoses Not on filedocumented in this encounter Additional Health Concerns Assessment Noted Time PHQ-9 Depression Total Score: 0 11/07/19 11:02 AM EDT PHQ-2 Depression Total Score: 0 11/07/19 11:02 AM EDT documented as of this encounter Care Teams Svp Research And Strategic Analysis Relationship Specialty Start Date End Date Xavier Segura MD 22 [facility], [address] [place] [address] [email or web address] PCP - General Family Medicine 02/09/15 Xavier Segura MD [address] [place] [address], [address] [place] [address] [email or web address] Insurance Assigned Provider 11/09/23 Mik Finley DO [address] [place] [address] [email or web address] Geriatric Medicine 10/09/24 documented as of this encounter Additional Source Comments The information contained in this document represents components of the legal health record. It is not the complete legal health record.[facility]
--- OUTSIDE RECORDS SUMMARY | 2025-04-13 17:14 | XMS_ITS | Encounter Summary ---
Author Organization [facility] Address [address] [place] [address] [address] [place] [address] Phone Care Team Providers Care Shoe Repairer Name Role Phone Xavier Segura MD Primary Care Provider [phone] Xavier Segura MD Unavailable [phone] Nafisa Avery MD Unavailable [phone] Mik Finley DO Unavailable [phone] Encounter Details Date Type Department Care Team (Latest Contact Info) Description 04/01/2024 Transcribe Orders Virtual Department [address] [place] [address] Xavier Segura MD 22 [facility], [address] [place] [address] [email or web address] Breast screening (Primary Dx) Social History Tobacco Use Types Packs/Day Years [...] 05/20/2025 2:30 PM EDT Office Visit [facility] [address] [place] [address] Mik Finley, [address] [place] [address] 05/26/2025 3:30 PM EDT Appointment [facility] PETCT Imaging, Donald [address] [place] [address], [address] [place] [address] Aida Terrell MD, MSc [address] [place] [address] [email or web address] 06/22/2025 10:45 AM EST Office Visit [facility] Pulmonary, Allergy and Critical Care Medicine [address] [place] [address] Pranav Zelaya MD [address] [place] [address] [email or web address] 08/09/2025 10:30 AM EST Telemedicine [facility] Department of Neurology [address] [place] [address], [address] [place] [address] Aida Terrell MD, MSc [address] [place] [address] [email or web address] documented as of this encounter Results * BI MAMMOGRAM SCREENING WITH TOMOSYNTHESIS WITH [...] Segura MD IMG MG EXAMS Final Result documented in this encounter Visit Diagnoses Diagnosis Breast screening- Primary Breast screening, unspecified Breast screening Breast screening, unspecified documented in this encounter Additional Health Concerns Infection Onset Date Last Indicated Resolved Time CDiff-Risk 07/31/2024 07/31/2024 08/01/2024 1:09 PM EST CDiff-Risk 08/01/2024 08/01/2024 08/01/2024 2:4 1 PM EST Assessment Noted Time PHQ-9 Depression Total Score: 1 10/24/19 3:27 PM EDT PHQ-2 Depression Total Score: 0 10/24/19 3:27 PM EDT documented as of this encounter Care Teams Shoe Repairer Relationship Specialty Start Date End Date Xavier Segura MD [address] [place] [address], [address] [place] [address] [email or web address] PCP - General Family Medicine 02/09/15 Xavier Segura MD [address] [place] [address], [address] [place] [address] [email or web address] Insurance Assigned Provider 11/09/23 Nafisa Avery MD [address] [place] [address], [address] [place] [address] Geriatric Medicine 05/21/23 10/08/24 Mik Finley DO [address] [place] [address] [email or web address] Geriatric Medicine 10/09/24 documented as of this encounter Additional Source Comments The information contained in this document represents components of the legal health record. It is not the complete legal health record.[facility]
--- OUTSIDE RECORDS SUMMARY | 2025-04-13 17:14 | XMS_ITS | Patient Health Record ---
[facility] Address [address] [place] [address] Care Team Providers Care Flower Grader Name Role Phone Xavier Segura MD Primary Care Provider Unavail able Black, Mini Unavailable [phone] Allergies Allergen (clinical drug ingredient) Drug/Non Drug [...] as needed one time Orally Once a day; Duration: 1 day(s) Active Omeprazole 20 MG 1 tablet Orally Once a day; Duration: 30 day(s) Active Carisoprodol 350 MG 1 tablet as needed Orally Four times a day Active Claritin 10 MG 1 tablet Orally Once a day; Duration: 30 day(s) Not-Taking Custom Orthotics as directed 12/19/2020 Active Elmiron 100 MG 1 capsule on an empty stomach Orally Three times a day; Duration: 30 day(s) Not-Taking CeleBREX 200 MG 1 capsule with food Orally Once a day; Duration: 30 day(s) Active Nefazodone HCl 100 MG 2 tablets Orally Twice a day; Duration: 30 day(s) Not-Taking FLUoxetine HCl 20 MG 1 capsule Orally Once a day; Duration: 30 day(s) Active Eye Drops Active Melatonin 3 MG 1 tablet at bedtime as needed with food Orally Once a day; Duration: 30 day(s) Active Gabapentin 600 MG 1 tablet Orally Once a day; Duration: 30 day(s) 100am 600pm Active Immunizations Vaccine Route Administration Date Status Comme nts COVID-19 Pfizer BioNTech Vaccine Unknown 07/05/2021 Administered [...] primary osteoarthritis of the ankle and/or foot (616351504) Primary osteoarthritis, right ankle and foot (M19.071) Active confirmed Problem Localized, primary osteoarthritis of the ankle and/or foot (977581979) Primary osteoarthritis, left ankle and foot (M19.072) Active confirmed Problem Acquired hammer toe of right foot (3845136482676046 ) Other hammer toe(s) (acquired), right foot (M20.41) Active confirmed Problem Acquired hammer toe of left foot (4541376027179406 ) Other hammer toe(s) (acquired), left foot (M20.42) Active confirmed Problem 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 Problem PlantarFlexion o f metatarsal of left foot (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) Active confirmed Plan Of Treatment Pending Test Test Name Order Date - Ganglion Cyst Injection/Aspiratio n 04/30/2019 Insurance Providers Payer Name Payer Address Payer Phone Subscriber Number Group Number Insured Name Patient Relationship to Insured Coverage Start Date Coverage End Date Medicare National Govt [employer] [address] [facility] [place] [address] [id number] Marianne Monteiro Self - patient is the insured [facility] [address] [place], [place] [address] [phone] [id number] Marianne Monteiro Self - patient is the insured Medical (General) History Medical History History ICD Code Arthritis Back,Hip,and Knee pain Broken bones Fibromyalgia Headaches/Migraines Reflux ( GERD) Sciatica Chicken pox Transfusions Surgical History Surgery Date(Month/Year) Eyes x4 [phone] Tonsils 1974 Disectomy 1999 Ulna reconstruction- rejected screws 198 -1999 Hysterectomy 1986 Lynx sling 2005 back surgery 02/2021
--- OUTSIDE RECORDS SUMMARY | 2025-04-13 17:14 | XMS_ITS | Encounter Summary ---
Author Organization [facility] Address [facility] [address] [place] [address] Phone Care Team Providers Care Childbirth Educator Name Role Phone Xavier Segura MD Primary Care Provider [phone] Xavier Segura MD Unavailable [phone] TusharMik DO Unavailable [phone] Encounter Details Date Type Department Care Team (Late st Contact Info) Description 01/25/2025 Procedure Pass [facility], Ct Scan - [address] [address] Social History Tobacco Use Types Packs/Day Years [...] 3:09 PM EDT Liz Whitaker RN * [place] Suicide Severity Rating Scale (Screener/Recent Self-Report) Question [...] Description 05/20/2025 2:30 PM EDT Office Visit [facility] [address] [place] [address] Mik Finley DO [address] [place] [address] [email or web address] 05/26/2025 3:30 PM EDT Appointment [facility] Imaging, Donald [address] [place] [address] Aida Terrell MD, MSc [address] [place] [address] 06/22/2025 10:45 AM EST Office Visit [facility] Pulmonary, Allergy and Critical Care Medicine [address] [place] [address] Pranav Zelaya MD [address] [place] [address] 08/09/2025 10:30 AM EST Telemedicine [facility] Department of Neurology [address] [place] [address], [address] [place] [address], [address] [address] Aida Terrell MD, MSc [address] [place] [address] documented as of this encounter Visit Diagnoses Not on filedocumented in this encounter Additional Health Concerns Assessment Noted Time PHQ-9 Depression Total Score: 0 11/07/19 11:02 AM EDT PHQ-2 Depression Total Score: 0 11/07/19 11:02 AM EDT documented as of this encounter Care Teams Childbirth Educator Relationship Specialty Start Date End Date Xavier Segura MD 22 [facility], [address] [place] [address] [email or web address] PCP - General Family Medicine 02/09/15 Xavier Segura MD [address] [place] [address], [address] [place] [address] [email or web address] Insurance Assigned Provider 11/09/23 Mik Finley DO [address] [place] [address] [email or web address] Geriatric Medicine 10/09/24 documented as of this encounter Additional Source Comments The information contained in this document represents components of the legal health record. It is not the complete legal health record.[facility]
--- OUTSIDE RECORDS SUMMARY | 2025-04-13 17:14 | XMS_ITS | Encounter Summary ---
Author Organization [facility] Address [address] [place] [address] Drive [address] [place] [address] Phone Care Team Providers Care Siebel Solution Architect Name Role Phone Xavier Segura MD Primary Care Provider [phone] Xavier Segura MD Unavailable [phone] Sammi Mojica OT Unavailable [phone] Nafisa Avery MD Unavailable [phone] Mik Finley DO Unavailable [phone] Encounter Details Date Type Department Care Team (Late st Contact Info) Description 03/05/2023 Procedure Pass [facility], Ct Scan - [address] [address] Social History Tobacco Use Types Packs/Day Years [...] high school, GED, job training, learning the [place] language, technical skills, or developing parenting skills)? [...] 12:47 AM EDT Divine Lynn, KATHLEEN * [place] Suicide Severity Rating Scale (Screener/Recent Self-Report) Question [...] Description 05/20/2025 2:30 PM EDT [facility] [address] [place] [address] Mik Finley DO [address] [place] [address] [email or web address] 05/26/2025 3:30 PM EDT Appointment [facility] Imaging, Donald [address] [place] [address], [address] [place] [address] Aida Terrell MD, MSc [address] [place] [address] 06/22/2025 10:45 AM EST Office Visit [facility] Pulmonary, Allergy and Critical Care Medicine [address] [place] [address] Pranav Zelaya MD [address] [place] [address] [email or web address] 08/09/2025 10:30 AM EST Telemedicine [facility] Department of Neurology [address] [place] [address], [address] [address] Aida Terrell MD, MSc [address] [place] [address] [email or web address] documented as of this encounter Visit Diagnoses Not on filedocumented in this encounter Additional Health Concerns Infection Onset Date Last Indicated Resolved Time CDiff-Risk 07/31/2024 07/31/2024 08/01/2024 1:09 PM EST CDiff-Risk 08/01/2024 08/01/2024 08/01/2024 2:41 PM EST Assessment Noted Time PHQ-2 Depression Total Score: 0 08/07/19 23 12:01 PM EST documented as of this encounter Care Teams Siebel Solution Architect Relationship Specialty Start Date End Date Xavier Segura MD [facility] [address] [place] [address] [email or web address] PCP - General Family Medicine 02/09/15 Xavier Segura MD 22 [facility] [address] [place] [address] Insurance Assigned Provider 11/09/23 Sammi Mojica, OT [address] [place] [address] [email or web address] Transitions Child Care NurseLabel Coder Therapy 03/05/23 Nafisa Avery MD [address] [place] [address] Geriatric Medicine 05/21/23 10/08/24 Mik Finley DO [address] [place] [address] Geriatric Medicine 10/09/24 documented as of this encounter Additional Source Comments The information contained in this document represents components of the legal health record. It is not the complete legal health record.[facility]
--- OUTSIDE RECORDS SUMMARY | 2025-04-13 17:14 | XMS_ITS | Encounter Summary ---
Author Organization [facility] Address [address] [place] [address] [place] [address] Phone Care Team Providers Care Toy Assembly Supervisor Name Role Phone Xavier Segura MD Primary Care Provider [phone] Xavier Segura MD Unavailable [phone] Sammi Mojica OT Unavailable [phone] Nafisa Avery MD Unavailable [phone] Mik Finley DO Unavailable [phone] Encounter Details Date Type Department Care Team (Late st Contact Info) Description 03/10/2021 Procedure Pass [facility], [address] [address] Social History Tobacco Use Types Packs/Day Years [...] 05/20/2025 2:30 PM EDT Office Visit [facility] [address] [place] [address] Mik Finley DO [address] [place] [address] [email or web address] 05/26/2025 3:30 PM EDT Appointment [facility] Imaging, Donald [address] [place] [address], [address] [place] [address] Aida Terrell MD, MSc [address] [place] [address] 06/22/2025 10:45 AM EST Office Visit [facility] Pulmonary, Allergy and Critical Care Medicine [address] [place] [address] Pranav Zelaya MD [address] [place] [address] [email or web address] 08/09/2025 10:30 AM EST Telemedicine [facility] Department of Neurology [address] [place] [address], [address] [address] Aida Terrell MD, MSc [address] [place] [address] [email or web address] documented as of this encounter Visit Diagnoses Not on filedocumented in this encounter Additional Health Concerns Infection Onset Date Last Indicated Resolved Time CDiff-Risk 07/31/2024 07/31/2024 08/01/2024 1:09 PM EST CDiff-Risk 08/01/2024 08/01/2024 08/01/2024 2:41 PM EST Assessment Noted Time PHQ-2 Depression Total Score: 0 02/18/ 19 3:00 PM EDT documented as of this encounter Care Teams Toy Assembly Supervisor Relationship Specialty Start Date End Date Xavier Segura MD 22 [facility], [address] [place] [address] [email or web address] PCP - General Family Medicine 02/09/15 Xavier Segura MD 22 [facility], [address] [place] [address] [email or web address] Insurance Assigned Provider 11/09/23 Sammi Mojica, OT [address] [place] [address] [email or web address] Transitions Jack Tamp OperatorSenior Site Manager Therapy 03/05/23 Nafisa Avery MD [address] [place] [address] [email or web address] Geriatric Medicine 05/21/23 10/08/24 Mik Finley DO [address] [place] [address] [email or web address] Geriatric Medicine 10/09/24 documented as of this encounter Additional Source Comments The information contained in this document represents components of the legal health record. It is not the complete legal health record.[facility]
--- OUTSIDE RECORDS SUMMARY | 2025-04-13 17:14 | XMS_ITS | Encounter Summary ---
Author Organization [facility] Address [address] [place] [address] [address] [place] [address] Phone Care Team Providers Care Hypoid Gear Tester Name Role Phone Xavier Segura MD Primary Care Provider Xavier Segura MD Unavailable [phone] Sammi Mojica OT Unavailable [phone] Nafisa Avery MD Unavailable [phone] Mik Finley DO Unavailable [phone] Encounter Details Date Type Department Care Team (Late st Contact Info) Description 01/13/2018 Ancillary Orders [facility] Medicine [address] [place] [address] [place] [address] Xavier Segura MD 22 [facility], [address] [place] [address] [email or web address] Breast screening Social History Tobacco Use Types Packs/Day Years Used Date Smoking Tobacco: Never Smokeless Tobacco: Never Alcohol Use Standard Drinks/Week Comments No 0 (1 standard drink = 0.6 oz pur e alcohol) Comments Unknown Sex and Gender Information Value [...] Description 05/20/2025 2:30 PM EDT Office Visit [facility] [address] [place] [address] Mik Finley, 22 [place] [address] [email or web address] 05/26/2025 3:30 PM EDT Appointment [facility] Imaging, Donald [address] [place] [address], [address] [place] [address] Aida Terrell MD, MSc [address] [place] [address] 06/22/2025 10:45 AM EST Office Visit [facility] Pulmonary, Allergy and Critical Care Medicine [address] [place] [address] Pranav Zelaya MD [address] [place] [address] [email or web address] 08/09/2025 10:30 AM EST Telemedicine [facility] Department of Neurology [address] [place] [address], [address] [place] [address] Aida Terrell MD, MSc [address] [place] [address] [email or web address] documented as of this encounter Results * BI MAMMOGRAM SCREENING WITH TOMOSYNTHESIS WITH CAD (BILATERAL) (05/26/2018 1:19 PM EDT) Anatomical Region Laterality Modality Breast Left, Breast Right, Breast Bilateral Bila teral Mammography 05/26/2018 3:41 PM EDT Impressions 05/26/2018 3:43 PM EDT No mammographic evidence of malignancy. RECOMMENDED FOLLOWUP: Routine screening mammography is recommended, as clinically appropriate. The results will be sent to the patient. BI-RADS CATEGORY: 2 - Benign finding. BREAST DENSITY: The breast tissue is heterogeneously dense, an appearance which lowers the sensitivity of mammography. POS - CDHMAM2 Narrative 05/26/2018 3:43 PM EDT BI MAMMOGRAM SCREENING WITH TOMOSYNTHESIS WITH CAD (BILATERAL), HISTORY: Screening. Maternal grandmother with history of breast cancer. COMPARISON: Prior studies dating back to 2011, most recently 05/08/2017. TECHNIQUE: Digital breast tomosynthesis was performed in craniocaudal and mediolateral oblique projections. Reconstructed screening 2-D views were generated from the tomosynthesis images. Images were interpreted in conjunction with R-2 Image Pocketbook Maker computer-aided detection. FINDINGS: Breast density: The breast parenchyma is heterogeneously dense, which may lower the sensitivity of mammography. There are no suspicious masses, suspicious areas of architectural distortion or suspicious clusters of microcalcifications. There are bilateral benign vascular calcifications. Line Procedure Note Deysi Chisholm MD - 05/26/2018 BI MAMMOGRAM SCREENING WITH TOMOSYNTHESIS WITH CAD (BILATERAL), HISTORY: Screening. Maternal grandmother with history of breast cancer. COMPARISON: Prior studies dating back to 2011, most recently 05/08/2017. TECHNIQUE: Digital breast tomosynthesis was performed in craniocaudal andmediolateral oblique projections. Reconstructed screening 2-D views weregenerated from the tomosynthesis images. Images were interpreted inconjunction with R-2 Image Pocketbook Maker computer-aided detection. FINDINGS: Breast density: The breast parenchyma is heterogeneously dense, which maylower the sensitivity of mammography. There are no suspicious masses, suspicious areas of architecturaldistortion or suspicious clusters of microcalcifications. There are bilateral benign vascular calcifications. Line IMPRESSION: No mammographic evidence of malignancy. RECOMMENDED FOLLOWUP: Routine screening mammography is recommended, asclinically appropriate. The results will be sent to the patient. BI-RADS CATEGORY: 2 - Benign finding. BREAST DENSITY: The breast tissue is heterogeneously dense, an appearancewhich lowers the sensitivity of mammography. POS - CDHMAM2 Xavier Segura MD IMG MG EXAMS Final Result documented in this encounter Visit Diagnoses Diagnosis Breast screening Breast screening, unspecified Breast screening Breast screening, unspecified documented in this encounter Additional Health Concerns Infection Onset Date Last Indicated Resolved Time CDiff-Risk 07/31/2024 07/31/2024 08/01/2024 1:09 PM EST CDiff-Risk 08/01/2024 08/01/2024 08/01/2024 2:41 PM EST documented as of this encounter Care Teams Hypoid Gear Tester Relationship Specialty Start Date End Date Xavier Segura MD [address] [place] [address] [email or web address] PCP - General Family Medicine 02/09/15 Xavier Segura MD [address] [place] [address], [address] [address] [email or web address] Insurance Assigned Provider 11/09/23 Sammi Mojica, OT [address] [place] [address] [email or web address] Transitions Hospital Admissions OfficerSummer Law Associate Therapy 03/05/23 Nafisa Avery MD 30 [place] [address] [email or web address] Geriatric Medicine 05/21/23 10/08/24 Mik Finley DO [address] [place] [address] [email or web address] Geriatric Medicine 10/09/24 documented as of this encounter Additional Source Comments The information contained in this document represents components of the legal health record. It is not the complete legal health record.[facility]
--- OUTSIDE RECORDS SUMMARY | 2025-04-13 17:14 | XMS_ITS | Encounter Summary ---
Author Organization [facility] Address [address] [place] [address] Drive [address] [place] [address] Phone Care Team Providers Care Computer Programmer Analyst Name Role Phone Xavier Segura MD Primary Care Provider [phone] Xavier Segura MD Unavailable [phone] Sammi Mojica OT Unavailable [phone] Nafisa Avery MD Unavailable [phone] Mik Finley DO Unavailable [phone] Encounter Details Date Type Department Care Team (Late st Contact Info) Description 03/05/2023 Procedure Pass [facility], Ct Scan - [address] [address] Social History Tobacco Use Types Packs/Day Years [...] high school, GED, job training, learning the Monegasque language, technical skills, or developing parenting skills)? [...] 12:47 AM EDT Divine Lynn, KATHLEEN * [place] Suicide Severity Rating Scale (Screener/Recent Self-Report) Question [...] Description 05/20/2025 2:30 PM EDT [facility] 22 [place] [address] Mik Finley DO 22 [place] [address] [email or web address] 05/26/2025 3:30 PM EDT Appointment [facility] Imaging, Donald [address] [place] [address], [address] [place] [address] Aida Terrell MD, MSc [address] [place] [address] 06/22/2025 10:45 AM EST Office Visit [facility] Pulmonary, Allergy and Critical Care Medicine [address] [place] [address] Pranav Zelaya MD [address] [place] [address] [email or web address] 08/09/2025 10:30 AM EST Telemedicine [facility] Department of Neurology [address] [place] [address], [address] [address] Aida Terrell MD, MSc [address] [place] [address] [email or web address] documented as of this encounter Visit Diagnoses Not on filedocumented in this encounter Additional Health Concerns Infection Onset Date Last Indicated Resolved Time CDiff-Risk 07/31/2024 07/31/2024 08/01/2024 1:09 PM EST CDiff-Risk 08/01/2024 08/01/2024 08/01/2024 2:41 PM EST Assessment Noted Time PHQ-2 Depression Total Score: 0 08/07/19 23 12:01 PM EST documented as of this encounter Care Teams Computer Programmer Analyst Relationship Specialty Start Date End Date Xavier Segura MD 22 [facility], [address] [place] [address] [email or web address] PCP - General Family Medicine 02/09/15 Xavier Segura MD 22 [facility] [address] [place] [address] Insurance Assigned Provider 11/09/23 Sammi Mojica, OT [address] [place] [address] [email or web address] Transitions Foot RoentgenologistSail Maker Therapy 03/05/23 Nafisa Avery MD [address] [place] [address] Geriatric Medicine 05/21/23 10/08/24 Mik Finley DO 22 [place] [address] Geriatric Medicine 10/09/24 documented as of this encounter Additional Source Comments The information contained in this document represents components of the legal health record. It is not the complete legal health record.[facility]
--- OUTSIDE RECORDS SUMMARY | 2025-04-13 17:14 | XMS_ITS | Encounter Summary ---
Author Organization [facility] Address [address] [place] [address] [place] [address] Phone Care Team Providers Care Mop Machine Operator Name Role Phone Xavier Segura MD Primary Care Provider [phone] Xavier Segura MD Unavailable [phone] Sammi Mojica OT Unavailable [phone] Nafisa Avery MD Unavailable [phone] Mik Finley DO Unavailable [phone] Encounter Details Date Type Department Care Team (Late st Contact Info) Description 12/10/2017 Procedure Pass [facility] - MRI 32 [facility], 6th [place] [address] Social History Tobacco Use Types Packs/Day Years [...] Description 05/20/2025 2:30 PM EDT Office Visit [facility] [address] [place] [address] Mik Finley DO 22 [place] [address] [email or web address] 05/26/2025 3:30 PM EDT Appointment [facility] Imaging, Donald [address] [place] [address], [address] [place] [address] Aida Terrell MD, MSc [address] [place] [address] [email or web address] 06/22/2025 10:45 AM EST Office Visit [facility] Pulmonary, Allergy and Critical Care Medicine [address] [place] [address] Pranav Zelaya MD [address] [place] [address] [email or web address] 08/09/2025 10:30 AM EST Telemedicine [facility] Department of Neurology [address] [place] [address], [address] [address] Aida Terrell MD, MSc [address] [place] [address] [email or web address] documented as of this encounter Visit Diagnoses Not on filedocumented in this encounter Additional Health Concerns Infection Onset Date Last Indicated Resolved Time CDiff-Risk 07/31/2024 07/31/2024 08/01/2024 1:09 PM EST CDiff-Risk 08/01/2024 08/01/2024 08/01/2024 2:41 PM EST Assessment Noted Time PHQ-2 Depression Total Score: 0 01/28/20 1:06 PM EDT documented as of this encounter Care Teams Mop Machine Operator Relationship Specialty Start Date End Date Xavier Segura MD 22 [facility] [address] [place] [address] [email or web address] PCP - General Family Medicine 02/09/15 Xavier Segura MD 22 [facility] [place] [address] [email or web address] Insurance Assigned Provider 11/09/23 Sammi Mojica, OT 30 [place] [address] [email or web address] Transitions Interpreter DeafCutter Operator Tile Therapy 03/05/23 Nafisa Avery MD 30 [place] [address] [email or web address] Geriatric Medicine 05/21/23 10/08/24 Mik Finley DO 22 [place] [address] [email or web address] Medicine 10/09/24 documented as of this encounter Additional Source Comments The information contained in this document represents components of the legal health record. It is not the complete legal health record.[facility]
--- OUTSIDE RECORDS SUMMARY | 2025-04-13 17:15 | XMS_ITS | Encounter Summary ---
Author Organization [facility] Address [facility] [address] [place] [address] Phone Care Team Providers Care Fish Hatchery Manager Name Role Phone Xavier Segura MD Primary Care Provider [phone] Xavier Segura MD Unavailable [phone] Nafisa Avery MD Unavailable [phone] Mik Finley DO Unavailable [phone] Encounter Details Date Type Department Care Team (Late st Contact Info) Description 03/25/2023 Procedure Pass [address] [address] Social History Tobacco Use Types Packs/Day Years [...] high school, GED, job training, learning the Eritrean language, technical skills, or developing parenting skills)? [...] 05/20/2025 2:30 PM EDT Office Visit [facility] [address] [place] [address] [place] [address] Mik Finley DO 22 [place] [address] 05/26/2025 3:30 PM EDT Appointment [facility], [address] [place] [address] Aida Terrell MD, MSc [address] [place] [address] 06/22/2025 10:45 AM EST Office Visit [facility]monary, Allergy and Critical Care Medicine [address] [place] [address] Pranav Zelaya MD [address] [place] [address] 2nd [place] [address] 08/09/2025 10:30 AM EST Telemedicine [facility] Department of Neurology [address] [place] [address], [address] [place] [address], [address] [place] [address] Aida Terrell MD, MSc [address] [place] [address] [email or web address] documented as of this encounter Visit Diagnoses Not on filedocumented in this encounter Additional Health Concerns Infection Onset Date Last Indicated Resolved Time CDiff-Risk 07/31/2024 07/31/2024 08/01/2024 1:09 PM EST CDiff-Risk 08/01/2024 08/01/2024 08/01/2024 2:41 PM EST Assessment Noted Time PHQ-2 Depression Total Score: 0 08/07/19 23 12:01 PM EST documented as of this encounter Care Teams Fish Hatchery Manager Relationship Specialty Start Date End Date Xavier Segura MD [address] [place] [address], [address] [place] [address] [email or web address] PCP - General Family Medicine 02/09/15 Xavier Segura MD [address] [place] [address], [address] [place] [address] [email or web address] Insurance Assigned Provider 11/09/23 Nafisa Avery MD [address] [place] [address], [address] [place] [address] [email or web address] Geriatric Medicine 05/21/23 10/08/24 Mik Finley DO 22 [place] [address] [email or web address] Geriatric Medicine 10/09/24 documented as of this encounter Additional Source Comments The information contained in this document represents components of the legal health record. It is not the complete legal health record.[facility]
--- OUTSIDE RECORDS SUMMARY | 2025-04-13 17:15 | XMS_ITS | Encounter Summary ---
Author Organization [facility] Address [address] [place] [address] [address] [place] [address] Phone Care Team Providers Care Trestleman Name Role Phone Xavier Segura MD Primary Care Provider [phone] Xavier Segura MD Unavailable [phone] Sammi Mojica OT Unavailable [phone] Nafisa Avery MD Unavailable [phone] Mik Finley DO Unavailable [phone] Encounter Details Date Type Department Care Team (Late st Contact Info) Description 02/24/2020 Ancillary Orders [facility] Medicine [address] [place] [address] [place] [address] Xavier Segura MD 22 [facility], [address] [place] [address] [email or web address] Breast screening Social History Tobacco Use Types [...] Description 05/20/2025 2:30 PM EDT Office Visit [facility] 22 [place] [address] Mik Finley, 22 [place] [address] [email or web address] 05/26/2025 3:30 PM EDT Appointment [facility] Imaging, Donald [address] [place] [address], [address] [place] [address] Aida Terrell MD, MSc [address] [place] [address] 06/22/2025 10:45 AM EST Office Visit [facility] Pulmonary, Allergy and Critical Care Medicine [address] [place] [address] Pranav Zelaya MD [address] [place] [address] 08/09/2025 10:30 AM EST Telemedicine [facility] Department of Neurology [address] [place] [address], [address] [place] [address] Aida Terrell MD, MSc [address] [place] [address] [email or web address] documented as of this encounter Results * BI MAMMOGRAM SCREENING WITH TOMOSYNTHESIS WITH CAD (BILATERAL) (05/30/2020 12:44 PM EDT) Anatomical Region Laterality Modality Breast Left, Breast Right, Breast Bilateral Bila teral Mammography 05/30/2020 1:01 PM EDT Impressions 05/30/2020 1:03 PM EDT No mammographic evidence of malignancy. Recommend routine annual surveillance. BI-RADS CATEGORY 2 - BENIGN DENSITY: The breast tissue is heterogeneously dense, an appearance which lowers the sensitivity of mammography. Narrative 05/30/2020 1:03 PM EDT 70-year-old female with no current breast symptoms. Comparison made to previous on 05/28/2019 and as far back as 04/29/2014. Interpretation made in conjunction with computer-aided detection and tomosynthesis. The breasts are heterogeneously dense, which may obscure small masses. Benign chronic bilateral vascular calcifications. There are no suspicious masses, areas of architectural distortion, or suspicious clusters of microcalcifications. Xavier Segura MD IMG MG EXAMS Final [...] documented as of this encounter Care Teams Trestleman Relationship Specialty Start Date End Date Xavier Segura MD 22 [facility], [address] [place] [address] [email or web address] PCP - General Family Medicine 02/09/15 Xavier Segura MD 22 [facility] [place] [address] [email or web address] Insurance Assigned Provider 11/09/23 Sammi Mojica, OT [address] [place] [address] [email or web address] Transitions Unit TenderFarmworker Pullet Farm Therapy 03/05/23 Nafisa Avery MD [address] [place] [address] [email or web address] Geriatric Medicine 05/21/23 10/08/24 Mik Finley DO [address] [place] [address] [email or web address] Geriatric Medicine 10/09/24 documented as of this encounter Additional Source Comments The information contained in this document represents components of the legal health record. It is not the complete legal health record.[facility]
--- OUTSIDE RECORDS SUMMARY | 2025-04-13 17:15 | XMS_ITS | Encounter Summary ---
Author Organization [facility] Address [address] [place] [address] Drive [address] [place] [address] Phone Care Team Providers Care Cnc Machine Operator Name Role Phone Xavier Segura MD Primary Care Provider [phone] Xavier Segura MD Unavailable [phone] Sammi Mojica OT Unavailable [phone] Nafisa Avery MD Unavailable [phone] Mik Finley DO Unavailable [phone] Encounter Details Date Type Department Care Team (Late st Contact Info) Description 07/17/2016 Procedure Pass [facility] [address] [place] [address] Social History Tobacco Use Types Packs/Day Years [...] 05/20/2025 2:30 PM EDT Office Visit [facility] Ger[facility] [address] [place] [address] Mik Finley DO 22 [place] [address] [email or web address] 05/26/2025 3:30 PM EDT Appointment [facility] Imaging, Donald [address] [place] [address], [address] [place] [address] Aida Terrell MD, MSc [address] [place] [address] 06/22/2025 10:45 AM EST Office Visit [facility] Pulmonary, Allergy and Critical Care Medicine [address] [place] [address] Pranav Zelaya MD [address] [place] [address] [email or web address] 08/09/2025 10:30 AM EST Telemedicine [facility] Department of Neurology [address] [place] [address], [address] [place] [address] Aida Terrell MD, MSc [address] [place] [address] [email or web address] documented as of this encounter Visit Diagnoses Not on filedocumented in this encounter Additional Health Concerns Infection Onset Date Last Indicated Resolved Time CDiff-Risk 07/31/2024 07/31/2024 08/01/2024 1:09 PM EST CDiff-Risk 08/01/2024 08/01/2024 08/01/2024 2:41 PM EST documented as of this encounter Care Teams Cnc Machine Operator Relationship Specialty Start Date End Date Xavier Segura MD 22 [facility], [address] [place] [address] [email or web address] PCP - General Family Medicine 02/09/15 Xavier Segura MD [address] [place] [address], [address] [place] [address] [email or web address] Insurance Assigned Provider 11/09/23 Sammi Mojica, OT [address] [place] [address] [email or web address] Transitions Bottom ScrubberCard Placer Therapy 03/05/23 Nafisa Avery MD [address] [place] [address] [email or web address] 05/21/23 10/08/24 Mik Finley DO [address] [place] [address] [email or web address] Geriatric Medicine 10/09/24 documented as of this encounter Additional Source Comments The information contained in this document represents components of the legal health record. It is not the complete legal health record.[facility]
--- OUTSIDE RECORDS SUMMARY | 2025-04-13 17:15 | XMS_ITS | Encounter Summary ---
Author Organization [facility] Address [address] [place] [address] [place] [id number] Phone Care Team Providers Care Elastic Yarn Twister Helper Name Role Phone Xavier Segura MD Primary Care Provider [phone] Xavier Segura MD Unavailable [phone] Sammi Mojica OT Unavailable [phone] Nafisa Avery MD Unavailable [phone] Mik Finley DO Unavailable [phone] Encounter Details Date Type Department Care Team (Late st Contact Info) Description 03/21/2022 Procedure Pass [address] [id number] Social History Tobacco Use Types Packs/Day Years [...] high school, GED, job training, learning the Qatari language, technical skills, or developing parenting skills)? [...] basis, and looking for work? No 06/23/2021 Comments No Sex and Gender Information Value [...] 05/20/2025 2:30 PM EDT Office Visit [facility] [address] [place] [phone] Mik Finley, [address] [place] [address] 05/26/2025 3:30 PM EDT Appointment [facility], Donald [address] [place] [address], [address] [place] [address] Aida Terrell MD, MSc [address] [address] 06/22/2025 10:45 AM EST Office Visit [facility] [address] [facility] [place] [address] [place] [address] Pranav Zelaya MD 10 [facility] 2nd [place] [address] 08/09/2025 10:30 AM EST Telemedicine [facility] Department of Neurology [address] [place] [address], [address] [place] [address] Aida Terrell MD, MSc [address] [place] [phone] [email or web address] documented as of this encounter Visit Diagnoses Not on filedocumented in this encounter Additional Health Concerns Infection Onset Date Last Indicated Resolved Time CDiff-Risk 07/31/2024 07/31/2024 08/01/2024 1:09 PM EST CDiff-Risk 08/01/2024 08/01/2024 08/01/2024 2:41 PM EST Assessment Noted Time PHQ-2 Depression Total Score: 0 06/23/20 21 2:33 PM EST documented as of this encounter Care Teams Elastic Yarn Twister Helper Relationship Specialty Start Date End Date Xavier Segura MD [address] [place] [address], [address] [place] [address] PCP - General Family Medicine 02/09/15 Xavier Segura MD [address] [place] [address], [address] [place] [address] Insurance Assigned Provider 11/09/23 Sammi Mojica, OT [address] [place] [address] Transitions Principal Military [employer]st[employer] 03/05/23 Nafisa Avery MD [address] [place] [address] [email or web address] 05/21/23 10/08/24 Mik Finley DO [address] [place] [id number] [email or web address] 10/09/24 documented as of this encounter Additional Source Comments The information contained in this document represents components of the legal health record. It is not the complete legal health record.[facility]
== END 2025-04-13 16:14 | disposition home or self-care (01) ==
LOC: HO.HSMS 14:47
PROVIDERS: PCP Pediatrics; Visit Provider Psychiatry & Neurology Neurology
DX: G24.3 Spasmodic torticollis (principal)
CPT/HCPCS: 64616

== ENCOUNTER → 2025-04-13 14:46 | Outpatient (BNVA) | payer MEDICARE, OTHER, SELFPAY | PROVIDERS: PCP Pediatrics; Visit Provider Psychiatry & Neurology Neurology | DX: G24.3 Spasmodic torticollis (principal); G43.709 Chronic migraine without aura, not intractable, without status migrainosus | CPT/HCPCS: 64616; 99211; J0585 ==

== ENCOUNTER 2025-07-13 14:20 | Outpatient (AMB) | payer MEDICARE, OTHER, SELFPAY ==
--- NOTE | 2025-07-13 14:22 | MHC.OFFVIS ---
Vital Signs 07/13/25 14:23 Height 5 ft 7 in BP 116/68 Blood Pressure Location Rt brachial Position Sitting Pulse 76 Pulse Source Pulse Oximeter Pulse Oximetry (%) 97 Oxygen Delivery Method Room Air Intake Visit Reasons: Botox Intake Note: Botox 300 Electronics Instructor Required: No Accompanied by: Spouse Allergies latex Allergy (Mild, Verified 07/13/25 14:23) Hives adhesive Allergy (Verified 07/13/25 14:23) Rash bee venom protein (honey bee) Allergy (Verified 07/13/25 14:23) Swelling contrast dye Allergy (Mild, Uncoded 10/06/24 12:51) Unknown Medication List - Last Reconciled 07/13/25 by Amy Hernandes MD carisoprodol 350 mg PO DAILY celecoxib 200 mg PO DAILY PRN fluoxetine 20 mg PO DAILY fluticasone propionate 50 mcg/actuation sprays intranasal gabapentin 100 mg PO DAILY gabapentin 300 mg PO BEDTIME galantamine ER 24 mg PO QAM lifitegrast 5% (Xiidra) drps ophthalmic (eye) memantine 7 mg PO DAILY minoxidil 1.25 mg PO DAILY montelukast 10 mg PO DAILY multivitamin 1 tab PO DAILY omeprazole 20 mg PO DAILY onabotulinumtoxinA (Botox) IM trazodone 150 mg PO BEDTIME zolmitriptan (Zomig) take 1 tab at onset of headache; if no relief, may repeat 1 tab after at least 2 hrs; max = 2 tabs/24 hrs PO HPI Comments Details: 75-year-old female comes for treatment of her migraines and spasmodic torticollis. Side affects including injection site reaction neck pain headaches muscular weakness musculoskeletal stiffness bronchitis allergic reaction myalgia facial paresis hypertension muscle spasms Excedrin were discussed in detail with the patient patient agrees to the procedure. Botulinum toxin type 100 units lot number [id number] expiration 07/2027 x 3 was diluted with 2 cc of normal saline. Muscles injected Bilateral splenius 50 units Bilateral levator 50 units each. Occipitalis 15 units each Temporalis 20 units each. Adebayo semispinalis 15 units each Total used 300 units [facility] Medical History Occipital neuralgia of left side Back pain Scoliosis Arthritis Surgical History H/O left wrist surgery H/O: hysterectomy History of tonsillectomy H/O eye surgery History of back surgery Social History Household Members: Spouse Alcohol intake: current Alcohol intake frequency: does not drink Patient Tobacco Use Status: Never used Tobacco Current occupational status: retired Physical Exam Vital Signs: Last Vital Signs Pulse 76 07/13/25 14:23 BP 116/68 07/13/25 14:23 Pulse Ox 97 07/13/25 14:23 Oxygen Delivery Method Room Air 07/13/25 14:23 Const Orientation/consciousness: patient oriented x3 Neck Other: spasmodic torticollis Restricted range of motion Neuro General: patient oriented x3, gait normal, tone normal, moves all extremities and no focal motor deficits Office Procedures Botulinum toxin Injection 73571 - Dystonia Procedure code (CPT) selection complete Office Meds onabotulinumtoxinA 100 unit solution for injection Performing Provider: Amy Hernandes MD Performing Location: [facility] Administered by: Amy Hernandes MD on 07/13/25 15:00 Dose Route Admin Location Dispensed Lot Number Expiration Date [facility] Merchandise Complaint Adjuster 300 unit IM 300 units [id number] ALLERGAN/BOTOX Total Dispensed Waste 300 units 0 % Assessment & Plan Assessment & Plan (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 She will call with any side effects. Orders: Orders AMB Botulinum toxin Injection Today G24.3 - Spasmodic torticollis Coding Level of Care Code Est Pt Level 1 (22656) Diagnoses Spasmodic torticollis G24.3 Chronic migraine without aura without status migrainosus, not intractable G43.709 Status migrainosus presence: without status migrainosus Intractability: not intractable CPT Codes Botox Injection - Botox 4: 28884 - Dystonia ([id number])
[2025-07-13 14:23] VITALS: BP 116/68; PULSE 76; O2SAT 97
== END 2025-07-13 15:05 | disposition home or self-care (01) ==
LOC: HO.HSMS 14:21
PROVIDERS: PCP Pediatrics; Visit Provider Psychiatry & Neurology Neurology
DX: G24.3 Spasmodic torticollis (principal)
CPT/HCPCS: 64616

== ENCOUNTER → 2025-07-13 14:20 | Outpatient (BNVA) | payer MEDICARE, OTHER, SELFPAY | PROVIDERS: PCP Pediatrics; Visit Provider Psychiatry & Neurology Neurology | DX: G43.709 Chronic migraine without aura, not intractable, without status migrainosus (principal); G24.3 Spasmodic torticollis | CPT/HCPCS: 64616; 99211; J0585 ==